=== PATIENT | male | born 1940 | race Caucasian/White ===

== ENCOUNTER 2016-08-03 09:55 | Outpatient (CLI) | payer MEDICARE, OTHER | END 2016-08-03 09:56 | disposition home or self-care (01) | DX: E78.5 Hyperlipidemia, unspecified (principal); E03.9 Hypothyroidism, unspecified; I10 Essential (primary) hypertension ==

== ENCOUNTER 2016-11-01 14:46 | Outpatient (CLI) | payer MEDICARE, OTHER | END 2016-11-01 23:59 | disposition home or self-care (01) | DX: E03.9 Hypothyroidism, unspecified (principal) ==

== ENCOUNTER 2016-12-10 07:41 | Outpatient (CLI) | payer MEDICARE, OTHER ==
[2016-12-10 13:36] LABS: THYROID STIMULATING HORMONE 11.33 uIU/mL (0.34-5.60)
== END 2016-12-10 07:42 | disposition home or self-care (01) ==
LOC: LAB.WCP 07:41
PROVIDERS: ATTEND Family Medicine
DX: E03.9 Hypothyroidism, unspecified (principal)
CPT/HCPCS: 36415; 84439; 84443; 84481

== ENCOUNTER 2017-01-24 07:15 | Outpatient (CLI) | payer MEDICARE, OTHER ==
[2017-01-24 21:39] LABS: THYROID STIMULATING HORMONE 28.56 uIU/mL (0.34-5.60)
== END 2017-01-24 07:16 | disposition home or self-care (01) ==
LOC: LAB.WCP 07:15
PROVIDERS: ATTEND Family Medicine
DX: E03.9 Hypothyroidism, unspecified (principal)
CPT/HCPCS: 36415; 84439; 84443; 84481

== ENCOUNTER 2017-03-03 17:24 | Outpatient (CLI) | payer MEDICARE, OTHER ==
[2017-03-03 13:56] LABS: THYROID STIMULATING HORMONE 12.15 uIU/mL (0.34-5.60)
== END 2017-03-03 17:25 | disposition home or self-care (01) ==
LOC: LAB.WCP 17:24
PROVIDERS: ATTEND Family Medicine
DX: E03.9 Hypothyroidism, unspecified (principal)
CPT/HCPCS: 36415; 84439; 84443; 84481

== ENCOUNTER 2017-03-31 08:23 | Outpatient (CLI) | payer MEDICARE, OTHER ==
[2017-03-31 14:18] LABS: THYROID STIMULATING HORMONE 2.84 uIU/mL (0.34-5.60)
== END 2017-03-31 08:24 | disposition home or self-care (01) ==
LOC: LAB.WCP 08:23
PROVIDERS: ATTEND Family Medicine
DX: E03.9 Hypothyroidism, unspecified (principal)
CPT/HCPCS: 36415; 84439; 84443; 84481

== ENCOUNTER 2017-11-01 14:32 | Outpatient (CLI) | payer MEDICARE, OTHER ==
[2017-11-01 19:34] LABS: BASOPHILS % (AUTO) 0.5 %; EOSINOPHILS # (AUTO) 0.3 10^3/uL (0.0-0.7); EOSINOPHILS % (AUTO) 3.6 %; HGB - HEMOGLOBIN 14.1 g/dL (14.0-18.0); LYMPHOCYTES # (AUTO) 1.4 10^3/uL (1.5-3.5); LYMPHOCYTES % (AUTO) 16.4 %; MEAN CORPUSCULAR HEMOGLOBIN 32.8 pg (27.0-31.0); MEAN CORPUSCULAR HGB CONC 33.2 g/dL (32.0-36.0); MEAN CORPUSCULAR VOLUME 98.7 fL (80.0-94.0); MEAN PLATELET VOLUME 8.3 fL (7.4-11.4); MONOCYTES # (AUTO) 0.7 10^3/uL (0.0-1.0); MONOCYTES % (AUTO) 7.9 %; NEUTROPHILS # (AUTO) 6.3 10^3/uL (1.5-6.6); NEUTROPHILS % (AUTO) 71.6 %; PLT - PLATELET COUNT 214 10^3/uL (130-450); RED BLOOD COUNT 4.31 10^6/uL (4.70-6.10); RED CELL DISTRIBUTION WIDTH 13.5 % (12.0-15.0); WHITE BLOOD COUNT 8.8 x10^3/uL (4.8-10.8)
[2017-11-01 20:00] LABS: ALBUMIN 3.7 g/dL (3.2-5.5); ALBUMIN/GLOBULIN RATIO 0.9 (1.0-2.2); ALKALINE PHOSPHATASE 75 IU/L (42-121); ALT ALANINE AMINOTRANSFERASE 19 IU/L (10-60); AST ASPARTATE AMINOTRANSFERASE 28 IU/L (10-42); BILIRUBIN,TOTAL 0.9 mg/dL (0.2-1.0); BUN - BLOOD UREA NITROGEN 21 mg/dL (6-20); CALCIUM 8.6 mg/dL (8.5-10.3); CARBON DIOXIDE - CO2 29 mmol/L (21-32); CHLORIDE 102 mmol/L (101-111); CHOL/HDL RATIO 5.4 (<5.0); CHOLESTEROL 195 mg/dL; CREATININE 0.8 mg/dL (0.6-1.2); GFR - MDRD 93 (>89); GLUCOSE 121 mg/dL (70-100); HDL CHOLESTEROL 36 mg/dL; LDL CHOLESTEROL,CALCULATED 136 mg/dL; LDL/HDL RATIO 3.8 (<3.6); SODIUM 138 mmol/L (135-145); TOTAL PROTEIN 7.6 g/dL (6.7-8.2); VLDL CHOLESTEROL 23 mg/dL
== END 2017-11-01 14:33 ==
LOC: LAB.WCP 14:32
PROVIDERS: ATTEND Family Medicine
DX: E78.5 Hyperlipidemia, unspecified (principal); R73.9 Hyperglycemia, unspecified; E03.9 Hypothyroidism, unspecified; I10 Essential (primary) hypertension
CPT/HCPCS: 36415; 80053; 80061; 83721; 84443; 85025

== ENCOUNTER 2017-11-17 14:38 | Outpatient (CLI) | payer MEDICARE, OTHER | END 2017-11-17 14:39 | disposition home or self-care (01) | LOC: LAB.R 14:38 | PROVIDERS: ATTEND Family Medicine | DX: L98.8 Other specified disorders of the skin and subcutaneous tissue (principal) | CPT/HCPCS: 87070; 87205 ==

== ENCOUNTER 2018-02-10 09:27 | Outpatient (CLI) | payer MEDICARE, OTHER ==
[2018-02-10 12:35] LABS: BASOPHILS % (AUTO) 0.6 %; EOSINOPHILS # (AUTO) 0.3 10^3/uL (0.0-0.7); EOSINOPHILS % (AUTO) 4.3 %; HGB - HEMOGLOBIN 14.5 g/dL (14.0-18.0); LYMPHOCYTES # (AUTO) 1.2 10^3/uL (1.5-3.5); LYMPHOCYTES % (AUTO) 15.2 %; MEAN CORPUSCULAR HEMOGLOBIN 33.8 pg (27.0-31.0); MEAN CORPUSCULAR HGB CONC 33.8 g/dL (32.0-36.0); MEAN CORPUSCULAR VOLUME 99.9 fL (80.0-94.0); MEAN PLATELET VOLUME 8.6 fL (7.4-11.4); MONOCYTES # (AUTO) 0.7 10^3/uL (0.0-1.0); MONOCYTES % (AUTO) 8.9 %; NEUTROPHILS # (AUTO) 5.5 10^3/uL (1.5-6.6); PLT - PLATELET COUNT 211 10^3/uL (130-450); RED CELL DISTRIBUTION WIDTH 13.5 % (12.0-15.0); WHITE BLOOD COUNT 7.7 x10^3/uL (4.8-10.8)
[2018-02-10 12:58] LABS: HB2 TOTAL 15.2 g/dL; HEMOGLOBIN A1C 0.62 g/dL; HEMOGLOBIN A1C % 5.9 % (4.6-6.2)
[2018-02-10 12:59] LABS: ALBUMIN 3.5 g/dL (3.2-5.5); ALBUMIN/GLOBULIN RATIO 0.8 (1.0-2.2); ALKALINE PHOSPHATASE 82 IU/L (42-121); ALT ALANINE AMINOTRANSFERASE 18 IU/L (10-60); AST ASPARTATE AMINOTRANSFERASE 27 IU/L (10-42); BILIRUBIN,TOTAL 0.7 mg/dL (0.2-1.0); BUN - BLOOD UREA NITROGEN 22 mg/dL (6-20); CALCIUM 8.8 mg/dL (8.5-10.3); CARBON DIOXIDE - CO2 27 mmol/L (21-32); CHLORIDE 102 mmol/L (101-111); CHOL/HDL RATIO 4.5 (<5.0); CHOLESTEROL 148 mg/dL; CREATININE 0.8 mg/dL (0.6-1.2); GFR - MDRD 93 (>89); GLUCOSE 103 mg/dL (70-100); HDL CHOLESTEROL 33 mg/dL; LDL CHOLESTEROL,CALCULATED 95 mg/dL; LDL/HDL RATIO 2.9 (<3.6); SODIUM 137 mmol/L (135-145); TOTAL PROTEIN 7.7 g/dL (6.7-8.2); VLDL CHOLESTEROL 20 mg/dL
== END 2018-02-10 09:28 | disposition home or self-care (01) ==
LOC: LAB.WCP 09:27
PROVIDERS: ATTEND Family Medicine
DX: E78.5 Hyperlipidemia, unspecified (principal); R73.9 Hyperglycemia, unspecified; E03.9 Hypothyroidism, unspecified; I10 Essential (primary) hypertension
CPT/HCPCS: 36415; 80053; 80061; 83036; 83721; 84443; 85025

== ENCOUNTER 2018-06-06 08:00 | Outpatient (CLI) | payer MEDICARE, OTHER ==
[2018-06-06 19:26] LABS: BASOPHILS # (AUTO) 0.1 10^3/uL (0.0-0.1); BASOPHILS % (AUTO) 0.8 %; EOSINOPHILS # (AUTO) 0.3 10^3/uL (0.0-0.7); HGB - HEMOGLOBIN 14.6 g/dL (14.0-18.0); LYMPHOCYTES % (AUTO) 14.5 %; MEAN CORPUSCULAR HEMOGLOBIN 33.9 pg (27.0-31.0); MEAN CORPUSCULAR HGB CONC 32.8 g/dL (32.0-36.0); MEAN CORPUSCULAR VOLUME 103.2 fL (80.0-94.0); MEAN PLATELET VOLUME 8.7 fL (7.4-11.4); MONOCYTES # (AUTO) 0.6 10^3/uL (0.0-1.0); MONOCYTES % (AUTO) 8.4 %; NEUTROPHILS # (AUTO) 4.8 10^3/uL (1.5-6.6); NEUTROPHILS % (AUTO) 72.3 %; PLT - PLATELET COUNT 218 10^3/uL (130-450); RED BLOOD COUNT 4.31 10^6/uL (4.70-6.10); RED CELL DISTRIBUTION WIDTH 13.9 % (12.0-15.0); WHITE BLOOD COUNT 6.6 x10^3/uL (4.8-10.8)
[2018-06-06 19:43] LABS: ALBUMIN 3.8 g/dL (3.2-5.5); ALBUMIN/GLOBULIN RATIO 0.9 (1.0-2.2); ALKALINE PHOSPHATASE 83 IU/L (42-121); ALT ALANINE AMINOTRANSFERASE 18 IU/L (10-60); AST ASPARTATE AMINOTRANSFERASE 26 IU/L (10-42); BILIRUBIN,TOTAL 0.9 mg/dL (0.2-1.0); BUN - BLOOD UREA NITROGEN 26 mg/dL (6-20); CALCIUM 8.5 mg/dL (8.5-10.3); CARBON DIOXIDE - CO2 31 mmol/L (21-32); CHLORIDE 101 mmol/L (101-111); CHOL/HDL RATIO 4.2 (<5.0); CHOLESTEROL 154 mg/dL; CREATININE 0.8 mg/dL (0.6-1.2); GFR - MDRD 93 (>89); GLUCOSE 92 mg/dL (70-100); HDL CHOLESTEROL 37 mg/dL; LDL CHOLESTEROL,CALCULATED 91 mg/dL; LDL/HDL RATIO 2.5 (<3.6); SODIUM 139 mmol/L (135-145); TOTAL PROTEIN 7.9 g/dL (6.7-8.2); VLDL CHOLESTEROL 26 mg/dL
[2018-06-06 20:13] LABS: HB2 TOTAL 15.7 g/dL; HEMOGLOBIN A1C 0.63 g/dL; HEMOGLOBIN A1C % 5.8 % (4.6-6.2)
== END 2018-06-06 23:59 | disposition home or self-care (01) ==
LOC: LAB.WCP 08:00
PROVIDERS: ATTEND Family Medicine
DX: I10 Essential (primary) hypertension (principal); E78.5 Hyperlipidemia, unspecified; R73.9 Hyperglycemia, unspecified; E03.9 Hypothyroidism, unspecified
CPT/HCPCS: 36415; 80053; 80061; 83036; 83721; 84443; 85025

== ENCOUNTER 2018-07-05 10:49 | Outpatient (CLI) | payer MEDICARE, OTHER | END 2018-07-05 23:59 | disposition home or self-care (01) | LOC: LAB.WCP 10:49 | PROVIDERS: ATTEND Family Medicine | DX: E03.9 Hypothyroidism, unspecified (principal) | CPT/HCPCS: 36415; 84443 ==

== ENCOUNTER 2018-12-22 10:15 | Outpatient (CLI) | payer MEDICARE, OTHER | END 2018-12-22 10:16 | disposition critical access hospital (66) | LOC: EMS 10:15 | PROVIDERS: ATTEND Surgery | DX: R53.1 Weakness (principal); R41.82 Altered mental status, unspecified | CPT/HCPCS: A0425; A0429 ==

== ENCOUNTER 2018-12-22 10:38 | Inpatient (IN) | payer MEDICARE, OTHER ==
[2018-12-22 11:23] LABS: BASOPHILS # (AUTO) 0.2 10^3/uL (0.0-0.1); BASOPHILS % (AUTO) 1.3 %; HGB - HEMOGLOBIN 15.2 g/dL (14.0-18.0); LYMPHOCYTES # (AUTO) 0.5 10^3/uL (1.5-3.5); LYMPHOCYTES % (AUTO) 2.7 %; MEAN CORPUSCULAR HEMOGLOBIN 34.2 pg (27.0-31.0); MEAN CORPUSCULAR HGB CONC 33.3 g/dL (32.0-36.0); MEAN CORPUSCULAR VOLUME 102.6 fL (80.0-94.0); MEAN PLATELET VOLUME 8.4 fL (7.4-11.4); MONOCYTES # (AUTO) 0.5 10^3/uL (0.0-1.0); MONOCYTES % (AUTO) 2.8 %; NEUTROPHILS # (AUTO) 16.6 10^3/uL (1.5-6.6); NEUTROPHILS % (AUTO) 93.2 %; PLT - PLATELET COUNT 157 10^3/uL (130-450); RED BLOOD COUNT 4.43 10^6/uL (4.70-6.10); RED CELL DISTRIBUTION WIDTH 14.3 % (12.0-15.0); WHITE BLOOD COUNT 17.8 x10^3/uL (4.8-10.8)
[2018-12-22 11:33] LABS: ALBUMIN 4.1 g/dL (3.2-5.5); ALBUMIN/GLOBULIN RATIO 0.9 (1.0-2.2); BILIRUBIN,TOTAL 1.6 mg/dL (0.2-1.0); CALCIUM 8.9 mg/dL (8.5-10.3); CREATININE 1.5 mg/dL (0.6-1.2); TOTAL PROTEIN 8.6 g/dL (6.7-8.2)
--- NOTE | 2018-12-22 13:19 | ED Physician Documentation ---
History of Present Illness - Stated complaint Stated Complaint: WEAKNESS - Chief complaint Chief Complaint: General - History obtained from History obtained from: Patient, Family () - History of Present Illness Timing: Yesterday - Additonal information Additional information: The patient is an 78-year-old male with history of sleep apnea, COPD, chronic pedal edema, hypothyroidism, and hypertension, who presents via ambulance with new onset weakness. He has been sitting up in the recliner to sleep at night, and this morning was too weak to get out of his recliner. His states that 2 days ago he was able to drive his car. Yesterday he was able to stand and walk, but was not able to drive. This morning he was unable to stand up from his recliner. His provides most of the history because the patient seems to have either difficulty or no willingness to speak. He becomes grumpy with me when I ask questions, but did eventually demonstrate ability to verbalize his thoughts. He denies chest pain, abdominal pain, nausea or vomiting. He denies dysuria, but urinated on himself this morning when unable to stand up from the recliner. Review of Systems Constitutional: reports: Fatigue. denies: Fever Eyes: denies: Decreased vision Ears: denies: Tinnitus/ringing Nose: denies: Congestion Throat: denies: Sore throat Cardiac: denies: Chest pain / pressure Respiratory: reports: Dyspnea. denies: Cough GI: denies: Abdominal Pain, Nausea, Vomiting : reports: Incontinent. denies: Dysuria Skin: reports: Rash (from scratching on lower legs) Musculoskeletal: reports: Extremity swelling (chronic) Neurologic: reports: Generalized weakness. denies: Focal weakness, Numbness, Headache PD PAST MEDICAL HISTORY - Past Medical History Past Medical History: Yes Cardiovascular: Hypertension, Atrial fibrillation Respiratory: Asthma Endocrine/Autoimmune: HyPOthyroidism GI: Ulcers : None HEENT: None Psych: Depression, Claustrophobia Musculoskeletal: Osteoarthritis, Fatigue Derm: None - Past Surgical History Past Surgical History: Yes HEENT: Cataracts - Present Medications Home Medications: Ambulatory Orders Medication Instructions Recorded Confirmed Albuterol [Ventolin Hfa] 2 puffs INH Q4H PRN 03/29/13 02/29/16 Hydrochlorothiazide 25 mg PO DAILY 03/29/13 02/29/16 Levothyroxine [Synthroid] 200 mcg PO QDAC 03/29/13 02/29/16 Lisinopril 10 mg PO DAILY 03/29/13 02/29/16 Sertraline [Zoloft] 50 mg PO DAILY 03/30/13 02/29/16 Fluticasone/Salmeterol [Advair 1 puffs INH BID 07/21/15 02/29/16 250-50 Diskus] Fexofenadine HCl 180 mg ORAL DAILY PRN 09/10/15 02/29/16 Furosemide 20 mg ORAL DAILY 09/10/15 02/29/16 Montelukast [Singulair] 1 tab ORAL DAILY 09/10/15 02/29/16 Levofloxacin [Levaquin] 750 mg PO DAILY #3 tablet 03/01/16 cephALEXin [Cephalexin] 500 mg PO QID #28 tablet 12/22/18 - Allergies Allergies/Adverse Reactions: Allergies Allergy/AdvReac Type Severity Reaction Status Date / Time amoxicillin [Amoxicillin] Allergy Unknown Rash Verified 03/30/13 09:06 - Social History Does the pt smoke?: No Smoking Status: Never smoker Does the pt drink ETOH?: No Does the pt have substance abuse?: No - Immunizations Immunizations are current?: Yes - POLST Patient has POLST: No PD ED PE NORMAL - Vitals Vital signs reviewed: Yes (normal) - General General: Other (Alert elderly male who is confused with regard to date and year.) - HEENT HEENT: Atraumatic, PERRL, EOMI, Pharynx benign - Neck Neck: Supple, no meningeal sign, No adenopathy - Cardiac Cardiac: RRR - Respiratory Respiratory: Other (Diffuse expiratory wheezing.) - Abdomen Abdomen: Soft, Non tender, Other (Rotund abdomen.) - Back Back: No CVA TTP - Derm Derm: No rash (Excoriation of lower legs bilaterally.) - Extremities Extremities: No calf tenderness / cord, Other (2+ pedal edema bilaterally with bilateral skin excoriations from scratching. The left lower leg is erythematous and warm to touch, with mild tenderness to palpation.) - Neuro Neuro: No sensory deficit, Other (Alert but disoriented. Cantankerous and minimizes communication, but does demonstrate ability to express himself verbally. There is generalized weakness but more specific weakness of the left lower extremity, with inability to hold his left leg after I left it from the bed.) Results - Vitals Vitals: Vital Signs - 24 hr 12/22/18 12/22/18 12/22/18 10:46 11:27 13:00 Temperature 37.0 C Heart Rate 88 86 91 Respiratory 20 22 22 Rate Blood Pressure 124/72 123/64 112/79 O2 Saturation 96 93 96 12/22/18 12/22/18 12/22/18 14:50 15:00 17:00 Temperature Heart Rate 87 85 78 Respiratory 18 20 20 Rate Blood Pressure 134/20 H 134/70 H O2 Saturation 98 98 12/22/18 12/22/18 18:00 20:18 Temperature Heart Rate 86 90 Respiratory 22 23 Rate Blood Pressure 104/69 116/77 O2 Saturation 95 93 Oxygen O2 Source [With Activity] Nasal cannula O2 Source Room air - EKG (time done) 10:46 Rate: Rate (enter#) (99) Rhythm: NSR, LAE, Other (Multiform VPC's.) Intervals: LBBB Compare to prior EKG: Changed from prior EKG (No longer tachycardic.) Computer interpretation: Agree with computer - Labs Labs: Laboratory Tests 12/22/18 12/22/18 12/22/18 11:08 11:08 11:19 WBC 17.8 H RBC 4.43 L Hgb 15.2 Hct 45.5 MCV 102.6 H MCH 34.2 H MCHC 33.3 RDW 14.3 Plt Count 157 MPV 8.4 Neut # (Auto) 16.6 H Lymph # (Auto) 0.5 L [place] # (Auto) 0.5 Eos # (Auto) 0.0 Baso # (Auto) 0.2 H Absolute Nucleated RBC 0.00 Nucleated RBC % 0.0 Sodium 136 Potassium 4.0 Chloride 99 L Carbon Dioxide 26 Anion Gap 11.0 BUN 24 H Creatinine 1.5 H Estimated GFR (MDRD) 45 L Glucose 112 H Lactic Acid 2.2 Calcium 8.9 Total Bilirubin 1.6 H AST 51 H ALT 21 Alkaline Phosphatase 56 Troponin I B-Natriuretic Peptide Total Protein 8.6 H Albumin 4.1 Globulin 4.5 H Albumin/Globulin Ratio 0.9 L Lipase 32 Urine Color Urine Clarity Urine pH Ur Specific [place] Urine Protein Urine Glucose (UA) Urine Ketones Urine Occult Blood Urine Nitrite Urine Bilirubin Urine Urobilinogen Ur Leukocyte Esterase Urine RBC Urine WBC Ur Squamous Epith Cells Urine Bacteria Urine Mucus Ur Microscopic Review Urine Culture Comments 12/22/18 12/22/18 12/22/18 13:06 14:12 14:23 WBC RBC Hgb Hct MCV MCH MCHC RDW Plt Count MPV Neut # (Auto) Lymph # (Auto) [place] # (Auto) Eos # (Auto) Baso # (Auto) Absolute Nucleated RBC Nucleated RBC % Sodium Potassium Chloride Carbon Dioxide Anion Gap BUN Creatinine Estimated GFR (MDRD) Glucose Lactic Acid Calcium Total Bilirubin AST ALT Alkaline Phosphatase Troponin I < 0.04 B-Natriuretic Peptide 471 H Total Protein Albumin Globulin Albumin/Globulin Ratio Lipase Urine Color DARK YELLOW Urine Clarity HAZY Urine pH 5.5 Ur Specific [place] >=1.030 H Urine Protein 100 H Urine Glucose (UA) NEGATIVE Urine Ketones NEGATIVE Urine Occult Blood MODERATE H Urine Nitrite NEGATIVE Urine Bilirubin NEGATIVE Urine Urobilinogen 1 (NORMAL) Ur Leukocyte Esterase NEGATIVE Urine RBC 0-5 Urine WBC 0-3 Ur Squamous Epith Cells MOD Squamous H Urine Bacteria Moderate H Urine Mucus Marked Strands Ur Microscopic Review INDICATED Urine Culture Comments NOT INDICATED - Rads (name of study) Portable CXR Radiology: Prelim report reviewed, EMP read contemporaneously, See rad report (Hypoventilatory chest with no acute cardiopulmonary abnormality. No plain radiographic evidence of congestive heart failure.) Head CT Radiology: Prelim report reviewed, EMP read contemporaneously, See rad report PD MEDICAL DECISION MAKING - ED course Complexity details: reviewed old records, reviewed results, re-evaluated patient, considered differential, d/w patient, d/w family, d/w portrait consultant ED course: The patient's presentation is significant for cellulitis of the left lower leg. Sepsis is considered, with his apparent decrease in mental status, elevated lactate of 2.2, and elevated white blood cell count of 17.8. He is generally weak and was not able to stand from his recliner this morning. On examination he also had wheezing at the bases of his lungs bilaterally. No rales or rhonchi were appreciated. Chest x-ray revealed no acute infiltrate or evidence of vascular congestion. Blood cultures x2 were drawn and are pending. Treatment in the emergency department included administration of ceftriaxone 1 g IV after blood cultures were drawn. DuoNeb nebulizer was administered and improved his air movement. Normal saline 500 mL was administered IV. I discussed his condition with Dr. Page who accepts him for further evaluation and treatment. When the hospitalist arrived to examine the patient for admission he refused hospitalization. Despite prolonged efforts to convince him to stay for further treatment the patient continued to refuse hospitalization. His became disgusted with him and left the emergency department. The patient continued to refuse hospitalization, and signed AGAINST MEDICAL ADVICE form indicating that he understands the risks of leaving without further treatment. I advised him that if at any point he changes his mind he is welcome to return. He is being discharged with prescription for cephalexin after having been given a gram of IV ceftriaxone in the emergency department. After the patient signed out AGAINST MEDICAL ADVICE he demonstrated inability to ambulate. His mental capacity is clearly impaired, most likely caused by the underlying infection, making his ability to leave AGAINST MEDICAL ADVICE in advisable. I have asked medical attendant and laborer hide house for assistance. From a medical standpoint the patient needs to be admitted for further treatment, and is not functionally able to leave the hospital at this time. Departure - Departure Disposition: [facility] DC/Xfer Clinical Impression: Cellulitis of left leg without foot, Sleep apnea in adult, Altered mental status COPD (chronic obstructive pulmonary disease) Qualifiers: COPD type: unspecified COPD Qualified Code(s): J44.9 - Chronic obstructive pulmonary disease, unspecified Condition: Stable Instructions: ED Infec Skin Cellulitis Discharge Date/Time: 12/22/18 21:15
[2018-12-22 13:28] LABS: BILIRUBIN,URINE NEGATIVE (NEGATIVE); GLUCOSE, URINE (UA) NEGATIVE (NEGATIVE); KETONES,URINE (UA) NEGATIVE (NEGATIVE); LEUKOCYTE ESTERASE, URINE NEGATIVE (NEGATIVE); NITRITE,URINE NEGATIVE (NEGATIVE); OCCULT BLOOD,URINE MODERATE (NEGATIVE); PH,URINE 5.5 PH (5.0-7.5); PROTEIN,URINE 100 mg/dL (NEGATIVE); UROBILINOGEN,URINE 1 (NORMAL) E.U./dL (NORMAL)
--- NOTE | 2018-12-22 14:02 | CT Report ---
Reason: left sided weakness Procedure Date: 12/22/2018 Accession Number: [id number] / [id number] Procedure: CT - HEAD WO CPT Code: FULL RESULT: EXAM: CT HEAD EXAM DATE: 12/22/2018 01:49 PM. CLINICAL HISTORY: Left sided weakness. COMPARISON: None. TECHNIQUE: Multiaxial CT images were obtained from the foramen magnum to the vertex. Reformats: Sagittal and coronal. IV contrast: None. In accordance with CT protocol optimization, one or more of the following dose reduction techniques were utilized for this exam: automated exposure control, adjustment of mA and/or KV based on patient size, or use of iterative reconstructive technique. FINDINGS: Parenchyma: No acute intracranial process. No mass-effect, edema, hemorrhage or midline shift. There is an old approximately 10 mm diameter infarct in the left insular cortex no other focal abnormality. Extraaxial Spaces: Normal for age. No subdural or epidural collections identified. Ventricles: Normal in size and position. Sinuses and Orbits: Imaged paranasal sinuses, orbits, and mastoids show no significant abnormality. Bones: No evidence of fracture or calvarial defect. Other: None. IMPRESSION: 1. 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 2. Otherwise normal examination for patient's age. RADIA
--- NOTE | 2018-12-22 14:03 | XRAY Report ---
Reason: dyspnea Procedure Date: 12/22/2018 Accession Number: [id number] / [id number] Procedure: XR - Chest 1 View X-Ray CPT Code: 60292 FULL RESULT: EXAM: CHEST RADIOGRAPHY EXAM DATE: 12/22/2018 01:52 PM. CLINICAL HISTORY: Dyspnea. COMPARISON: CHEST 2 VIEW PA/LAT 02/27/2016 8:33 PM. TECHNIQUE: 1 view. FINDINGS: Lungs/Pleura: Allowing for poor inspiratory effort there is no significant abnormality. Normal pulmonary vasculature. No significant change. Mediastinum: Borderline cardiac enlargement accentuated by poor inspiratory effort. No mass lesion. Other: None. IMPRESSION: Hypoventilatory chest with no acute cardiopulmonary abnormality. No plain radiographic evidence of congestive heart failure. RADIA
[2018-12-22 14:08] LABS: CLARITY,URINE HAZY (CLEAR)
[2018-12-22 14:19] LABS: BACTERIA,URINE Moderate /HPF (None Seen); MUCUS,URINE Marked Strands; RBC,URINE 0-5 /HPF (0-5); SQUAMOUS EPITHELIAL CELL,UR MOD Squamous (<= Few)
[2018-12-22] MEDS ORDERED: IPRATROPIUM/ALBUTEROL 3 ML NEB INH STA (14:21)
[2018-12-22] MEDS ORDERED: SODIUM CHLORIDE 0.9% 1,000 ML IV ONE (14:22)
[2018-12-22] MEDS ORDERED: SODIUM CHLORIDE 0.9% 500 ML IV ONE (14:26)
[2018-12-22] MEDS ORDERED: cefTRIAXone 1 GM in SODIUM CHLORIDE 0.9% MINIBAG 100 ML IV STA (15:59)
--- NOTE | 2018-12-22 18:08 | PROVIDER PROGRESS NOTE ---
Hospitalist Cross-cover Note - Cross-Cover Note Cross-Cover Note: I went to ER to visit Mr. Lofton twice, and every time I was with Dr. Savage and pt's and nurses together. Every time pt clearly stated he refused to stay in the hospital for treatment. I am willing to admit pt but I can not admit pt at this time. I respect it is pt's right to make this decision. Pt is alert and pt clearly make his decision now.
[2018-12-22] MEDS ORDERED: ZIPRASIDONE 20 MG VIAL IM STA (19:36)
[2018-12-22] MEDS ORDERED: ACETAMINOPHEN 325 MG TABLET PO PRN (20:27)
--- NOTE | 2018-12-22 21:08 | HISTORY & PHYSICAL EXAMINATION ---
Chief Complaint - Chief Complaint Chief Complaint: weakness History of Present Illness - Admitted From Admitted From:: [facility] ED - History Obtained From Records Reviewed: yes History obtained from: chart Exam Limitations: patient very uncooperative. possibly encephalopathic - History of Present Illness HPI Comment/Other: Patient seen on 12/22/18 at 2015pm The account below is obtained from the HPI of the ED H&P because the patient is not cooperative and refuses to provide any history. He can tell me his name, his date of and his current location. However, he would not tell me why and how he presented to the ED. He keep insisting that he wants to go. However he is unstable on his feet. His is not at bedside because she got very frustrated with his behavior and opposition to care, so she left. Upon presenting to bedside, he was standing but appeared unsteady on his legs. There were two staff members trying to guide him to sit in bed. I explained our concern about him having an infection and possibly getting septic if he was not treated. He keeps repeating that he does not want to stay but would not give a reason why. I informed him that I was concern that he was not thinking at a rational baseline and that we will have to restraint him on that account if he continued to resist care, thus giving him the opportunity to give his perspective. He did not. He keep repeating his mantra about not wanting to stay. I deemed him unable to make appropriate decisions for himself at the moment and admitted him. "The patient is an 78-year-old male with history of sleep apnea, COPD, chronic pedal edema, hypothyroidism, and hypertension, who presents via ambulance with new onset weakness. He has been sitting up in the recliner to sleep at night, and this morning was too weak to get out of his recliner. His states that 2 days ago he was able to drive his car. Yesterday he was able to stand and walk, but was not able to drive. This morning he was unable to stand up from his recliner. His provides most of the history because the patient seems to have either difficulty or no willingness to speak. He becomes grumpy with me when I ask questions, but did eventually demonstrate ability to verbalize his thoughts. He denies chest pain, abdominal pain, nausea or vomiting. He denies dysuria, but urinated on himself this morning when unable to stand up from the recliner." History - Past Medical History Cardiovascular: reports: Hypertension, Deep vein thrombosis, Atrial fibrillation Respiratory: reports: Asthma Endocrine/Autoimmune: reports: HyPOthyroidism GI: reports: Ulcers : reports: None HEENT: reports: None Psych: reports: Depression, Claustrophobia Musculoskeletal: reports: Osteoarthritis, Fatigue Derm: reports: None MRSA Hx?: No - Past Surgical History HEENT: reports: Cataracts - Family & Social History Family History: Brother: CAD, Other family: Diabetes, Type 2 (maternal grandmother: diabetes ) Living arrangement: At home Social History Notes: Patient lives with of 23 years.. Prior to that he was twice .. Had a son who at 2 or 3 yrs of age. Has 2 step chilldren. He was born in [place] but grew up in [facility] and has live here almost his whole life. 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 He quit smoking when he was in his 40's. He smoked about 1/4 pack a day for 10 years. He denies any alcohol use. He denies any illicit drug use - POLST Patient has POLST: No POLST Status: Full Code (until verified with spouse) Meds/Allgy - Home Medications Home Medications: Ambulatory Orders Medication Instructions Recorded Confirmed Albuterol [Ventolin Hfa] 2 puffs INH Q4H PRN 03/29/13 02/29/16 Hydrochlorothiazide 25 mg PO DAILY 03/29/13 02/29/16 Levothyroxine [Synthroid] 200 mcg PO QDAC 03/29/13 02/29/16 Lisinopril 10 mg PO DAILY 03/29/13 02/29/16 Sertraline [Zoloft] 50 mg PO DAILY 03/30/13 02/29/16 Fluticasone/Salmeterol [Advair 1 puffs INH BID 07/21/15 02/29/16 250-50 Diskus] Fexofenadine HCl 180 mg ORAL DAILY PRN 09/10/15 02/29/16 Furosemide 20 mg ORAL DAILY 09/10/15 02/29/16 Montelukast [Singulair] 1 tab ORAL DAILY 09/10/15 02/29/16 Levofloxacin [Levaquin] 750 mg PO DAILY #3 tablet 03/01/16 cephALEXin [Cephalexin] 500 mg PO QID #28 tablet 12/22/18 - Allergies Allergies/Adverse Reactions: Allergies Allergy/AdvReac Type Severity Reaction Status Date / Time amoxicillin [Amoxicillin] Allergy Unknown Rash Verified 03/30/13 09:06 Review of Systems - Other Findings Other Findings: Limited ROS because the patient is currently encephalopathic and very uncoope rative Exam - Vital Signs Vital Signs: Vital Signs x48h Pulse Resp BP Pulse Ox 12/22/18 20:48 97 20 122/66 98 12/22/18 20:18 90 23 116/77 93 12/22/18 18:00 86 22 104/69 95 12/22/18 17:00 78 20 134/70 H 98 12/22/18 15:00 85 20 134/20 H 98 12/22/18 14:50 87 18 12/22/18 13:00 91 22 112/79 96 - Physical Exam General Appearance: positive: No acute distress, Other (Grumpy/ Agitated and COnfused) Eyes Bilateral: positive: Normal inspection, PERRL, EOMI ENT: positive: ENT inspection nml, No signs of dehydration Neck: positive: Nml inspection, No JVD, Trachea midline Respiratory: positive: Chest non-tender, No respiratory distress, Breath sounds nml. negative: Wheezes, Rales, Rhonchi Cardiovascular: positive: No murmur, Tachycardia Abdomen: positive: Non-tender, Nml bowel sounds, No distention Back: positive: Nml inspection Skin: positive: No rash, Other (escuriations, scabs and wounds in bilateral lower extremities from mid helms distally) Extremities: positive: Pedal edema Neurologic/Psychiatric: negative: Oriented x3 (Oriented to self and place but n ot reason) Sepsis Event Note (H) - Evaluation Current Stage of Sepsis: Sepsis Possible source of Sepsis: positive: Genitourinary, Skin/soft tissue - Sepsis Criteria Sepsis Criteria: Recorded Temperature greater than 38.3C or Less than 36C, Recorded Heart Rate greater than 90 bpm, Recorded Respiratory Rate greater than 20, WBC count greater than 12,000 or less than 4000, [employer] ARCHITECT: altered consciousness (unrelated to primary neuro pathology), Metabolic: lactate > 2 mmol/L Conclusion/Plan - Problem List (1) Sepsis Conclusion/Plan: likely 2/2 UTI and lower ext cellulitis Blood culture drawn. Patient given rocephin. Will add vancomycin Gentle IV hydration. Tylenol for fever. (2) Hypothyroidism Conclusion/Plan: On synthroid (3) HTN (hypertension) Conclusion/Plan: On HCTZ and lisinopril (4) Asthma Conclusion/Plan: Not in exacerbation Continue home regimen. Breathing treatment prn (5) Depression Conclusion/Plan: On zoloft - Lab Results Lab results reviewed: Yes Fish Bones: 12/22/18 11:08 12/22/18 11:08 - Diagnostic Imaging Results Diagnostic Imaging Results: positive: Final report reviewed Core Measures - Anticipated LOS I expect patient to be DC'd or transferred within 96 hours.: Yes - DVT/VTE - Prophylaxis VTE/DVT Device ordered at admit?: Yes VTE/DVT Prophylaxis med ordered at admit?: Yes
[2018-12-22] MEDS: SODIUM CHLORIDE 0.9% 1,000 ML IV SCH (21:40)
[2018-12-22] MEDS: HEPARIN 5,000 UNIT/ML VIAL SUBQ SCH (21:41)
[2018-12-22] MEDS ORDERED: VANCOMYCIN PER PHARMACY 100 GM in SODIUM CHLORIDE 0.9% 250 ML IV SCH (22:00)
[2018-12-22] MEDS ORDERED: VANCOMYCIN 1 GM VIAL ONE (22:44)
[2018-12-22] MEDS ORDERED: VANCOMYCIN INJ 3 GM in SODIUM CHLORIDE 0.9% 500 ML IV ONE (23:00)
[2018-12-23] MEDS: SODIUM CHLORIDE FLUSH 0.9% 10 ML SYRINGE IVP SCH ×3 (00:34→16:49)
[2018-12-23] MEDS: PANTOPRAZOLE 40 MG TABLET PO SCH (06:18)
[2018-12-23] MEDS: SODIUM CHLORIDE 0.9% 1,000 ML IV SCH (06:18)
[2018-12-23 06:52] LABS: BASOPHILS % (AUTO) 0.1 %; LYMPHOCYTES # (AUTO) 0.7 10^3/uL (1.5-3.5); LYMPHOCYTES % (AUTO) 5.3 %; MEAN CORPUSCULAR HEMOGLOBIN 34.6 pg (27.0-31.0); MEAN CORPUSCULAR HGB CONC 33.2 g/dL (32.0-36.0); MEAN CORPUSCULAR VOLUME 104.1 fL (80.0-94.0); MEAN PLATELET VOLUME 8.5 fL (7.4-11.4); MONOCYTES # (AUTO) 0.9 10^3/uL (0.0-1.0); MONOCYTES % (AUTO) 6.3 %; NEUTROPHILS # (AUTO) 12.1 10^3/uL (1.5-6.6); NEUTROPHILS % (AUTO) 88.3 %; PLT - PLATELET COUNT 130 10^3/uL (130-450); RED BLOOD COUNT 3.76 10^6/uL (4.70-6.10); RED CELL DISTRIBUTION WIDTH 14.5 % (12.0-15.0); WHITE BLOOD COUNT 13.7 x10^3/uL (4.8-10.8)
[2018-12-23 07:02] LABS: CALCIUM 7.6 mg/dL (8.5-10.3); CREATININE 1.5 mg/dL (0.6-1.2)
[2018-12-23] MEDS: POLYETHYLENE GLYCOL 3350 17 GM PACKET PO SCH (08:29)
[2018-12-23] MEDS ORDERED: POTASSIUM CHLORIDE 20 MEQ TABLET PO ONE (08:30)
[2018-12-23] MEDS: cefTRIAXone 1 GM in SODIUM CHLORIDE 0.9% MINIBAG 100 ML IV SCH (08:37)
[2018-12-23] MEDS: HEPARIN 5,000 UNIT/ML VIAL SUBQ SCH ×2 (08:37→20:10)
[2018-12-23] MEDS ORDERED: SERTRALINE 50 MG TABLET PO SCH (09:00)
--- NOTE | 2018-12-23 09:18 | PROVIDER PROGRESS NOTE ---
Subjective - Subjective Pt reports feeling: Improved Subjective: pt report he feel improved. pt express to me "you guys did a great job to me." Now he want to continue to be treated in the hospital. he denies fever, chill, chest pain. Current Medications - Current Medications Current Medications: Active Medications Acetaminophen (Tylenol) 650 mg PO Q4HR PRN PRN Reason: Pain 1 to 4 Albuterol () 2.5 mg INH RTQ4H PRN PRN Reason: Wheezing Budesonide (Pulmicort) 0.5 mg INH RTBID [facility] Last Admin: 12/23/18 09:53 Dose: 0.5 mg Formoterol Fumarate (Perforomist) 20 mcg INH RTBID [facility] Last Admin: 12/23/18 09:53 Dose: 20 mcg Heparin Sodium (Porcine) () 5,000 unit SUBQ BID [facility] Last Admin: 12/23/18 08:37 Dose: 5,000 unit Sodium Chloride (Normal Saline 0.9%) 1,000 mls @ 100 mls/hr IV .Q10H [facility] Stop: 12/23/18 16:59 Last Admin: 12/23/18 06:18 Dose: 100 mls/hr Ceftriaxone Sodium 1 gm/ (Sodium Chloride) 100 mls @ 200 mls/hr IV DAILY [facility] Last Infusion: 12/23/18 09:07 Dose: Infused Vancomycin HCl 1 gm/Vancomycin HCl 500 mg/ Sodium Chloride 500 mls @ 250 mls/hr IV Q24H [facility] Levothyroxine Sodium (Synthroid) 200 mcg PO QDAC [facility] Montelukast Sodium (Singulair) 10 mg PO QPM [facility] Pantoprazole Sodium (Protonix) 40 mg PO QDAC [facility] Last Admin: 12/23/18 06:18 Dose: 40 mg Polyethylene Glycol (Miralax) 17 gm PO DAILY [facility] Last Admin: 12/23/18 08:29 Dose: 17 gm Sertraline HCl (Zoloft) 50 mg PO DAILY [facility] Last Admin: 12/23/18 10:29 Dose: 50 mg Sodium Chloride (Normal Saline Flush 0.9%) 10 ml IVP PRN PRN PRN Reason: NEEDED PER PROVIDER ORDERS Sodium Chloride (Normal Saline Flush 0.9%) 10 ml IVP 0100,0900,1700 [facility] Last Admin: 12/23/18 08:37 Dose: Not Given Albuterol [Ventolin Hfa] 2 puffs INH Q4H PRN 03/29/13 Fluticasone/Salmeterol [Advair 250-50 Diskus] 1 puffs INH BID 07/21/15 Montelukast [Singulair] 10 mg PO DAILY 09/10/15 Atorvastatin [Lipitor] 10 mg PO QPM 12/23/18 Levothyroxine Sodium [Synthroid] 300 mcg PO QDAC 12/23/18 Lisinopril [Zestril] 10 mg PO DAILY 12/23/18 Sertraline HCl [Zoloft] 100 mg PO DAILY 12/23/18 hydroCHLOROthiazide [Hydrodiuril] 25 mg PO DAILY 12/23/18 Objective - Vital Signs/Intake & Output Reviewed Vital Signs: Yes Vital Signs: Vital Signs x48h Temp Pulse Resp BP Pulse Ox 12/23/18 08:05 36.3 C L 77 18 116/63 100 12/23/18 04:20 36.8 C 73 16 104/53 L Intake & Output: Intake & Output 12/20/18 12/21/18 12/22/18 12/23/18 23:59 23:59 23:59 23:59 Intake Total 1600 1463.333 Output Total 200 Balance 1600 1263.333 - Objective General Appearance: positive: No acute distress, Alert. negative: Lethargic Eyes Bilateral: positive: Normal inspection, PERRL, No lid inflammation, Conjunctivae nml ENT: positive: ENT inspection nml, Pharynx nml, No signs of dehydration. negative: Purulent nasal drainage, Pharyngeal erythema, Oral lesions Neck: positive: Nml inspection, Thyroid nml, No JVD, Trachea midline. negative: Thyromegaly, Lymphadenopathy (R), Lymphadenopathy (L), Stiff neck, Swelling/bruising, Tracheal deviation Respiratory: positive: Chest non-tender, No respiratory distress, Breath sounds nml. negative: Wheezes, Rales, Rhonchi Cardiovascular: positive: Regular rate & rhythm, No murmur, No gallop. negative: Irregularly irregular, Extrasystoles, Tachycardia, Bradycardia, JVD present, Systolic murmur, Diastolic murmur Peripheral Pulses: 2+ Radial (R), 2+ Radial (L) Abdomen: positive: Non-tender, No organomegaly, Nml bowel sounds. negative: Tenderness, Guarding, Rebound Back: positive: Nml inspection. negative: CVA tenderness (R), CVA tenderness (L) Skin: positive: Warm, Dry. negative: Cyanosis, Diaphoresis, Pallor Extremities: negative: Calf tenderness, Siva's sign/cords Neurologic/Psychiatric: positive: Oriented x3. negative: Weakness, Sensory loss, Facial droop, Slurred/abnml speech - Lab Results Fish Bones: 12/23/18 06:35 12/23/18 06:35 Other Labs: Lab Results x24hrs 12/23/18 12/23/18 12/22/18 Range/Units 06:35 06:35 14:23 WBC 13.7 H (4.8-10.8) x10^3/uL RBC 3.76 L (4.70-6.10) 10^6/uL Hgb 13.0 L (14.0-18.0) g/dL Hct 39.2 L (42.0-52.0) % MCV 104.1 H (80.0-94.0) fL MCH 34.6 H (27.0-31.0) pg MCHC 33.2 (32.0-36.0) g/dL RDW 14.5 (12.0-15.0) % Plt Count 130 (130-450) 10^3/uL MPV 8.5 (7.4-11.4) fL Neut # (Auto) 12.1 H (1.5-6.6) 10^3/uL Lymph # (Auto) 0.7 L (1.5-3.5) 10^3/uL [place] # (Auto) 0.9 (0.0-1.0) 10^3/uL Eos # (Auto) 0.0 (0.0-0.7) 10^3/uL Baso # (Auto) 0.0 (0.0-0.1) 10^3/uL Absolute Nucleated RBC 0.00 x10^3/uL Nucleated RBC % 0.0 /100WBC Sodium 137 (135-145) mmol/L Potassium 3.4 L (3.5-5.0) mmol/L Chloride 104 (101-111) mmol/L Carbon Dioxide 24 (21-32) mmol/L Anion Gap 9.0 (6-13) BUN 25 H (6-20) mg/dL Creatinine 1.5 H (0.6-1.2) mg/dL Estimated GFR (MDRD) 45 L (>89) Glucose 106 H (70-100) mg/dL Lactic Acid (0.5-2.2) mmol/L Calcium 7.6 L (8.5-10.3) mg/dL Total Bilirubin (0.2-1.0) mg/dL AST (10-42) IU/L ALT (10-60) IU/L Alkaline Phosphatase (42-121) IU/L Troponin I (<0.49) ng/mL B-Natriuretic Peptide 471 H (5-100) pg/mL Total Protein (6.7-8.2) g/dL Albumin (3.2-5.5) g/dL Globulin (2.1-4.2) g/dL Albumin/Globulin Ratio (1.0-2.2) Lipase (22-51) U/L Urine Color Urine Clarity (CLEAR) Urine pH (5.0-7.5) PH Ur Specific [place] (1.002-1.030) Urine Protein (NEGATIVE) mg/dL Urine Glucose (UA) (NEGATIVE) mg/dL Urine Ketones (NEGATIVE) mg/dL Urine Occult Blood (NEGATIVE) Urine Nitrite (NEGATIVE) Urine Bilirubin (NEGATIVE) Urine Urobilinogen (NORMAL) E.U./dL Ur Leukocyte Esterase (NEGATIVE) Urine RBC (0-5) /HPF Urine WBC (0-3) /HPF Ur Squamous Epith Cells (<= Few) Urine Bacteria (None Seen) /HPF Urine Mucus Ur Microscopic Review Urine Culture Comments 12/22/18 12/22/18 12/22/18 Range/Units 14:12 13:06 11:19 WBC (4.8-10.8) x10^3/uL RBC (4.70-6.10) 10^6/uL Hgb (14.0-18.0) g/dL Hct (42.0-52.0) % MCV (80.0-94.0) fL MCH (27.0-31.0) pg MCHC (32.0-36.0) g/dL RDW (12.0-15.0) % Plt Count (130-450) 10^3/uL MPV (7.4-11.4) fL Neut # (Auto) (1.5-6.6) 10^3/uL Lymph # (Auto) (1.5-3.5) 10^3/uL [place] # (Auto) (0.0-1.0) 10^3/uL Eos # (Auto) (0.0-0.7) 10^3/uL Baso # (Auto) (0.0-0.1) 10^3/uL Absolute Nucleated RBC x10^3/uL Nucleated RBC % /100WBC Sodium (135-145) mmol/L Potassium (3.5-5.0) mmol/L Chloride (101-111) mmol/L Carbon Dioxide (21-32) mmol/L Anion Gap (6-13) BUN (6-20) mg/dL Creatinine (0.6-1.2) mg/dL Estimated GFR (MDRD) (>89) Glucose (70-100) mg/dL Lactic Acid 2.2 (0.5-2.2) mmol/L Calcium (8.5-10.3) mg/dL Total Bilirubin (0.2-1.0) mg/dL AST (10-42) IU/L ALT (10-60) IU/L Alkaline Phosphatase (42-121) IU/L Troponin I < 0.04 (<0.49) ng/mL B-Natriuretic Peptide (5-100) pg/mL Total Protein (6.7-8.2) g/dL Albumin (3.2-5.5) g/dL Globulin (2.1-4.2) g/dL Albumin/Globulin Ratio (1.0-2.2) Lipase (22-51) U/L Urine Color DARK YELLOW Urine Clarity HAZY (CLEAR) Urine pH 5.5 (5.0-7.5) PH Ur Specific [place] >=1.030 H (1.002-1.030) Urine Protein 100 H (NEGATIVE) mg/dL Urine Glucose (UA) NEGATIVE (NEGATIVE) mg/dL Urine Ketones NEGATIVE (NEGATIVE) mg/dL Urine Occult Blood MODERATE H (NEGATIVE) Urine Nitrite NEGATIVE (NEGATIVE) Urine Bilirubin NEGATIVE (NEGATIVE) Urine Urobilinogen 1 (NORMAL) (NORMAL) E.U./dL Ur Leukocyte Esterase NEGATIVE (NEGATIVE) Urine RBC 0-5 (0-5) /HPF Urine WBC 0-3 (0-3) /HPF Ur Squamous Epith Cells MOD Squamous H (<= Few) Urine Bacteria Moderate H (None Seen) /HPF Urine Mucus Marked Strands Ur Microscopic Review INDICATED Urine Culture Comments NOT INDICATED 12/22/18 12/22/18 Range/Units 11:08 11:08 WBC 17.8 H (4.8-10.8) x10^3/uL RBC 4.43 L (4.70-6.10) 10^6/uL Hgb 15.2 (14.0-18.0) g/dL Hct 45.5 (42.0-52.0) % MCV 102.6 H (80.0-94.0) fL MCH 34.2 H (27.0-31.0) pg MCHC 33.3 (32.0-36.0) g/dL RDW 14.3 (12.0-15.0) % Plt Count 157 (130-450) 10^3/uL MPV 8.4 (7.4-11.4) fL Neut # (Auto) 16.6 H (1.5-6.6) 10^3/uL Lymph # (Auto) 0.5 L (1.5-3.5) 10^3/uL [place] # (Auto) 0.5 (0.0-1.0) 10^3/uL Eos # (Auto) 0.0 (0.0-0.7) 10^3/uL Baso # (Auto) 0.2 H (0.0-0.1) 10^3/uL Absolute Nucleated RBC 0.00 x10^3/uL Nucleated RBC % 0.0 /100WBC Sodium 136 (135-145) mmol/L Potassium 4.0 (3.5-5.0) mmol/L Chloride 99 L (101-111) mmol/L Carbon Dioxide 26 (21-32) mmol/L Anion Gap 11.0 (6-13) BUN 24 H (6-20) mg/dL Creatinine 1.5 H (0.6-1.2) mg/dL Estimated GFR (MDRD) 45 L (>89) Glucose 112 H (70-100) mg/dL Lactic Acid (0.5-2.2) mmol/L Calcium 8.9 (8.5-10.3) mg/dL Total Bilirubin 1.6 H (0.2-1.0) mg/dL AST 51 H (10-42) IU/L ALT 21 (10-60) IU/L Alkaline Phosphatase 56 (42-121) IU/L Troponin I (<0.49) ng/mL B-Natriuretic Peptide (5-100) pg/mL Total Protein 8.6 H (6.7-8.2) g/dL Albumin 4.1 (3.2-5.5) g/dL Globulin 4.5 H (2.1-4.2) g/dL Albumin/Globulin Ratio 0.9 L (1.0-2.2) Lipase 32 (22-51) U/L Urine Color Urine Clarity (CLEAR) Urine pH (5.0-7.5) PH Ur Specific [place] (1.002-1.030) Urine Protein (NEGATIVE) mg/dL Urine Glucose (UA) (NEGATIVE) mg/dL Urine Ketones (NEGATIVE) mg/dL Urine Occult Blood (NEGATIVE) Urine Nitrite (NEGATIVE) Urine Bilirubin (NEGATIVE) Urine Urobilinogen (NORMAL) E.U./dL Ur Leukocyte Esterase (NEGATIVE) Urine RBC (0-5) /HPF Urine WBC (0-3) /HPF Ur Squamous Epith Cells (<= Few) Urine Bacteria (None Seen) /HPF Urine Mucus Ur Microscopic Review Urine Culture Comments ABX Reporting Has patient been on IV antibiotics over the past 48 hours?: Yes Sepsis Event Note (H) - Evaluation Current Stage of Sepsis: Sepsis Possible source of Sepsis: positive: Genitourinary, Skin/soft tissue - Sepsis Criteria Sepsis Criteria: Recorded Temperature greater than 38.3C or Less than 36C, Recorded Heart Rate greater than 90 bpm, Recorded Respiratory Rate greater than 20, WBC count greater than 12,000 or less than 4000, COMPOUND MIXER: altered consciousness (unrelated to primary neuro pathology), Metabolic: lactate > 2 mmol/L Assessment/Plan - Problem List (1) Sepsis Impression: 12/23 left lower extremity cellulitis, warm, and tenderness. clinic improved today, reduced warm, and tenderness, and WBC is reduced to 13.4 from 17.8 pt has no more fever, chill. he report he feel better. continue Rocephin and Vancomycin followup blood culture (2) Hypothyroidism Conclusion/Plan: 12/23 pt is On synthroid check TSH (3) HTN (hypertension) Conclusion/Plan: 12/23 hold HCTZ and lisinopril, since pt has borderline BP continue vital and tele monitor (4) Asthma Conclusion/Plan: 12/23 stable, Not in exacerbation Continue home regimen. Breathing treatment prn (5) Depression Conclusion/Plan: stable, continue On zoloft (6)RASTA pt's creatinine increase to 1.5 from 0.8 on 05/28, significant reduced function. it seems from his prerenal azotemia, pt clinic present dehydration. IVF of NS, lab monitor hold neph toxical agents (7) elevated BNP pt has elevated BNP 471. pt had ECHO on 2014 which revealed unremarkable recheck ECHO, precaution of Fluid overload check BNP
[2018-12-23] MEDS: FORMOTEROL FUMARATE NEB 20 MCG/2 ML INH SCH ×2 (09:53→19:43)
[2018-12-23] MEDS: BUDESONIDE 0.5 MG/2 ML NEB INH SCH ×2 (09:53→19:43)
[2018-12-23] MEDS ORDERED: POTASSIUM CHLORIDE 10 MEQ CAPSULE PO ONE (11:00)
[2018-12-23] MEDS ORDERED: SODIUM CHLORIDE 0.9% 1,000 ML IV SCH (17:00)
[2018-12-23] MEDS: VANCOMYCIN INJ 1 GM, VANCOMYCIN INJ 500 MG in SODIUM CHLORIDE 0.9% 500 ML IV SCH (17:18)
--- NOTE | 2018-12-23 17:44 | Ultrasound Report ---
Reason: swelling, tenderness, DVT? special at left Procedure Date: 12/23/2018 Accession Number: [id number] / [id number] Procedure: US - Duplex Ext Veins Bilateral CPT Code: FULL RESULT: EXAM: BILATERAL LOWER EXTREMITY VENOUS ULTRASOUND EXAM DATE: 12/23/2018 03:32 PM. CLINICAL HISTORY: Sepsis. Lower extremity cellulitis with swelling and tenderness. COMPARISON: None. TECHNIQUE: Real-time sonographic vascular imaging was performed by the assistant finance manager through the lower extremities utilizing both color-flow and Doppler spectral analysis. Multiple hardware supplies sales representative static images were saved for review. FINDINGS: Right: Common Femoral Vein (CFV): Normal. CFV-GSV Junction: Normal. Profunda Femoral Vein (PFV): Normal. Femoral Vein (FV) Prox: Normal. Femoral Vein (FV) Mid: Normal. Femoral Vein (FV) Dist: Normal. Popliteal Vein: Normal. Posterior Tibial Veins: Limited visualization. Peroneal Veins: Limited visualization. Left: Common Femoral Vein (CFV): Normal. CFV-GSV Junction: Normal. Profunda Femoral Vein (PFV): Normal. Femoral Vein (FV) Prox: Normal. Femoral Vein (FV) Mid: Normal. Femoral Vein (FV) Dist: Normal. Popliteal Vein: Normal. Posterior Tibial Veins: Limited visualization. Peroneal Veins: Limited visualization. Other: Prominent left inguinal lymph nodes. IMPRESSION: No evidence for deep venous thrombosis bilaterally. RADIA
[2018-12-23] MEDS: MONTELUKAST 10 MG TABLET PO SCH (20:11)
[2018-12-24] MEDS: SODIUM CHLORIDE FLUSH 0.9% 10 ML SYRINGE IVP SCH ×3 (00:16→17:16)
[2018-12-24] MEDS: PANTOPRAZOLE 40 MG TABLET PO SCH (06:15)
[2018-12-24 06:32] LABS: BASOPHILS % (AUTO) 0.2 %; EOSINOPHILS # (AUTO) 0.1 10^3/uL (0.0-0.7); EOSINOPHILS % (AUTO) 0.7 %; HGB - HEMOGLOBIN 12.8 g/dL (14.0-18.0); LYMPHOCYTES # (AUTO) 0.7 10^3/uL (1.5-3.5); LYMPHOCYTES % (AUTO) 8.4 %; MEAN CORPUSCULAR HEMOGLOBIN 34.9 pg (27.0-31.0); MEAN CORPUSCULAR HGB CONC 33.4 g/dL (32.0-36.0); MEAN CORPUSCULAR VOLUME 104.3 fL (80.0-94.0); MEAN PLATELET VOLUME 8.4 fL (7.4-11.4); MONOCYTES # (AUTO) 0.5 10^3/uL (0.0-1.0); MONOCYTES % (AUTO) 6.4 %; NEUTROPHILS # (AUTO) 7.3 10^3/uL (1.5-6.6); NEUTROPHILS % (AUTO) 84.3 %; PLT - PLATELET COUNT 117 10^3/uL (130-450); RED BLOOD COUNT 3.68 10^6/uL (4.70-6.10); RED CELL DISTRIBUTION WIDTH 14.5 % (12.0-15.0); WHITE BLOOD COUNT 8.6 x10^3/uL (4.8-10.8)
[2018-12-24 06:42] LABS: CALCIUM 7.6 mg/dL (8.5-10.3); CREATININE 1.1 mg/dL (0.6-1.2)
[2018-12-24] MEDS ORDERED: LEVOTHYROXINE 100 MCG TABLET PO SCH ×2 (07:00→15:00)
[2018-12-24] MEDS: BUDESONIDE 0.5 MG/2 ML NEB INH SCH ×2 (07:36→19:45)
[2018-12-24] MEDS: FORMOTEROL FUMARATE NEB 20 MCG/2 ML INH SCH ×2 (07:36→19:45)
[2018-12-24] MEDS: cefTRIAXone 1 GM in SODIUM CHLORIDE 0.9% MINIBAG 100 ML IV SCH (08:42)
--- NOTE | 2018-12-24 08:51 | XRAY Report ---
Reason: SOB/hypoxia Procedure Date: 12/24/2018 Accession Number: [id number] / [id number] Procedure: XR - Chest 1 View X-Ray CPT Code: 81854 FULL RESULT: EXAM: CHEST RADIOGRAPHY EXAM DATE: 12/24/2018 08:41 AM. CLINICAL HISTORY: Shortness of breath and hypoxia. COMPARISON: Chest radiograph from 12/22/2018. TECHNIQUE: 1 view. FINDINGS: Lungs/Pleura: Mild diffuse interstitial prominence is present. There is suggestion of slightly asymmetric patchy right basilar opacity. Small right pleural effusion is demonstrated. No definite left pleural effusion. No pneumothorax. Mediastinum: There is mild prominence of the cardiomediastinal contour, which has not significantly changed. Pulmonary vasculature is mildly engorged and indistinct. Other: None. IMPRESSION: 1. Findings suggesting mild CHF/fluid overload, new from the prior examination. 2. Slightly asymmetric patchy right basilar opacity, which could represent asymmetric pulmonary edema, atelectasis, or superimposed infiltrate. 3. Small right pleural effusion. [facility]
[2018-12-24] MEDS: SERTRALINE 50 MG TABLET PO SCH (10:57)
[2018-12-24] MEDS: LEVOTHYROXINE 100 MCG TABLET PO SCH (10:59)
[2018-12-24] MEDS: LISINOPRIL 5 MG TABLET PO SCH (11:03)
[2018-12-24] MEDS: hydroCHLOROthiazide 25 MG TABLET PO SCH (11:04)
[2018-12-24] MEDS: POLYETHYLENE GLYCOL 3350 17 GM PACKET PO SCH (11:05)
[2018-12-24] MEDS: HEPARIN 5,000 UNIT/ML VIAL SUBQ SCH ×2 (11:29→21:04)
--- NOTE | 2018-12-24 13:46 | PROVIDER PROGRESS NOTE ---
Subjective - Prog Note Date Prog Note Date: 12/24/18 - Subjective Pt reports feeling: Improved Subjective: pt report he feel better, pt state " everything you did to me is working." he denies palpitation, shortness of breath, chest pain, fever, chill. pt's O2 sats is decreased from 100% on 2 liter to 93% on 2 liter of O2, present mild cough. Order CXR for pt Current Medications - Current Medications Current Medications: Active Medications Acetaminophen (Tylenol) 650 mg PO Q4HR PRN PRN Reason: Pain 1 to 4 Albuterol () 2.5 mg INH RTQ4H PRN PRN Reason: Wheezing Atorvastatin Calcium (Lipitor) 10 mg PO QPM [facility] Budesonide (Pulmicort) 0.5 mg INH RTBID [facility] Last Admin: 12/24/18 07:36 Dose: 0.5 mg Formoterol Fumarate (Perforomist) 20 mcg INH RTBID [facility] Last Admin: 12/24/18 07:36 Dose: 20 mcg Furosemide (Lasix) 20 mg PO DAILY [facility] Heparin Sodium (Porcine) () 5,000 unit SUBQ BID [facility] Last Admin: 12/24/18 11:29 Dose: 5,000 unit Hydrochlorothiazide (Hydrodiuril) 25 mg PO DAILY [facility] Last Admin: 12/24/18 11:04 Dose: 25 mg Ceftriaxone Sodium 1 gm/ (Sodium Chloride) 100 mls @ 200 mls/hr IV DAILY [facility] Last Infusion: 12/24/18 09:38 Dose: Infused Vancomycin HCl 1 gm/Vancomycin HCl 500 mg/ Sodium Chloride 500 mls @ 250 mls/hr IV Q24H [facility] Last Infusion: 12/23/18 20:13 Dose: Infused Levothyroxine Sodium (Synthroid) 300 mcg PO QDAC [facility] Last Admin: 12/24/18 10:59 Dose: 300 mcg Lisinopril (Zestril) 10 mg PO DAILY [facility] Last Admin: 12/24/18 11:03 Dose: 10 mg Montelukast Sodium (Singulair) 10 mg PO QPM [facility] Last Admin: 12/23/18 20:11 Dose: 10 mg Pantoprazole Sodium (Protonix) 40 mg PO QDAC [facility] Last Admin: 12/24/18 06:15 Dose: 40 mg Polyethylene Glycol (Miralax) 17 gm PO DAILY [facility] Last Admin: 12/24/18 11:05 Dose: 17 gm Sertraline HCl (Zoloft) 100 mg PO DAILY [facility] Last Admin: 12/24/18 10:57 Dose: 100 mg Sodium Chloride (Normal Saline Flush 0.9%) 10 ml IVP PRN PRN PRN Reason: NEEDED PER PROVIDER ORDERS Sodium Chloride (Normal Saline Flush 0.9%) 10 ml IVP 0100,0900,1700 [facility] Last Admin: 12/24/18 09:38 Dose: 10 ml Albuterol [Ventolin Hfa] 2 puffs INH Q4H PRN 03/29/13 Fluticasone/Salmeterol [Advair 250-50 Diskus] 1 puffs INH BID 07/21/15 Montelukast [Singulair] 10 mg PO DAILY 09/10/15 Atorvastatin [Lipitor] 10 mg PO QPM 12/23/18 Levothyroxine Sodium [Synthroid] 300 mcg PO QDAC 12/23/18 Lisinopril [Zestril] 10 mg PO DAILY 12/23/18 Sertraline HCl [Zoloft] 100 mg PO DAILY 12/23/18 hydroCHLOROthiazide [Hydrodiuril] 25 mg PO DAILY 12/23/18 Objective - Vital Signs/Intake & Output Reviewed Vital Signs: Yes Vital Signs: Vital Signs x48h Temp Pulse Pulse Resp BP Pulse Ox 12/24/18 12:27 36.3 C L 68 18 125/75 96 12/24/18 08:07 36.2 C L 61 18 119/54 L 95 12/24/18 07:38 62 16 Intake & Output: Intake & Output 12/21/18 12/22/18 12/23/18 12/24/18 23:59 23:59 23:59 23:59 Intake Total 1600 4353.333 1300 Output Total 300 100 Balance 1600 4053.333 1200 - Objective General Appearance: positive: No acute distress, Alert. negative: Lethargic Eyes Bilateral: positive: Normal inspection, PERRL, No lid inflammation, Conjunctivae nml ENT: positive: ENT inspection nml, Pharynx nml, No signs of dehydration. negative: Purulent nasal drainage, Pharyngeal erythema, Oral lesions Neck: positive: Nml inspection, Thyroid nml, No JVD, Trachea midline. negative: Thyromegaly, Lymphadenopathy (R), Lymphadenopathy (L), Stiff neck, Swelling/bruising, Tracheal deviation Respiratory: positive: Chest non-tender, No respiratory distress. negative: Wheezes, Rales, Rhonchi Cardiovascular: positive: Regular rate & rhythm, No murmur, No gallop. negative: Irregularly irregular, Extrasystoles, Tachycardia, Bradycardia, JVD present, Systolic murmur, Diastolic murmur Peripheral Pulses: 2+ Radial (R), 2+ Radial (L), 2+ Dorsalis pedis (R), 2+ Dorsalis pedis (L) Abdomen: positive: Non-tender, No organomegaly, Nml bowel sounds, No distention. negative: Tenderness, Guarding, Rebound Back: positive: Nml inspection. negative: CVA tenderness (R), CVA tenderness (L) Skin: positive: Warm, Dry, Skin rash. negative: Cyanosis, Diaphoresis, Pallor Extremities: negative: Calf tenderness, Joint swelling, Siva's sign/cords Neurologic/Psychiatric: positive: Oriented x3, Sensation nml, Mood/affect nml. negative: Weakness, Sensory loss, Facial droop, Slurred/abnml speech, Depressed mood/affect - Lab Results Fish Bones: 12/24/18 06:22 12/24/18 06:22 Other Labs: Lab Results x24hrs 12/24/18 12/24/18 12/24/18 Range/Units 06:22 06:22 06:22 WBC (4.8-10.8) x10^3/uL RBC (4.70-6.10) 10^6/uL Hgb (14.0-18.0) g/dL Hct (42.0-52.0) % MCV (80.0-94.0) fL MCH (27.0-31.0) pg MCHC (32.0-36.0) g/dL RDW (12.0-15.0) % Plt Count (130-450) 10^3/uL MPV (7.4-11.4) fL Neut # (Auto) (1.5-6.6) 10^3/uL Lymph # (Auto) (1.5-3.5) 10^3/uL [place] # (Auto) (0.0-1.0) 10^3/uL Eos # (Auto) (0.0-0.7) 10^3/uL Baso # (Auto) (0.0-0.1) 10^3/uL Absolute Nucleated RBC x10^3/uL Nucleated RBC % /100WBC Sodium 135 (135-145) mmol/L Potassium 3.7 (3.5-5.0) mmol/L Chloride 105 (101-111) mmol/L Carbon Dioxide 23 (21-32) mmol/L Anion Gap 7.0 (6-13) BUN 23 H (6-20) mg/dL Creatinine 1.1 (0.6-1.2) mg/dL Estimated GFR (MDRD) 64 L (>89) Glucose 95 (70-100) mg/dL Calcium 7.6 L (8.5-10.3) mg/dL B-Natriuretic Peptide 199 H (5-100) pg/mL TSH 94.49 H (0.34-5.60) uIU/mL 12/24/18 Range/Units 06:22 WBC 8.6 (4.8-10.8) x10^3/uL RBC 3.68 L (4.70-6.10) 10^6/uL Hgb 12.8 L (14.0-18.0) g/dL Hct 38.4 L (42.0-52.0) % MCV 104.3 H (80.0-94.0) fL MCH 34.9 H (27.0-31.0) pg MCHC 33.4 (32.0-36.0) g/dL RDW 14.5 (12.0-15.0) % Plt Count 117 L (130-450) 10^3/uL MPV 8.4 (7.4-11.4) fL Neut # (Auto) 7.3 H (1.5-6.6) 10^3/uL Lymph # (Auto) 0.7 L (1.5-3.5) 10^3/uL [place] # (Auto) 0.5 (0.0-1.0) 10^3/uL Eos # (Auto) 0.1 (0.0-0.7) 10^3/uL Baso # (Auto) 0.0 (0.0-0.1) 10^3/uL Absolute Nucleated RBC 0.01 x10^3/uL Nucleated RBC % 0.2 /100WBC Sodium (135-145) mmol/L Potassium (3.5-5.0) mmol/L Chloride (101-111) mmol/L Carbon Dioxide (21-32) mmol/L Anion Gap (6-13) BUN (6-20) mg/dL Creatinine (0.6-1.2) mg/dL Estimated GFR (MDRD) (>89) Glucose (70-100) mg/dL Calcium (8.5-10.3) mg/dL B-Natriuretic Peptide (5-100) pg/mL TSH (0.34-5.60) uIU/mL ABX Reporting Has patient been on IV antibiotics over the past 48 hours?: Yes Sepsis Event Note (H) - Evaluation Current Stage of Sepsis: Sepsis Possible source of Sepsis: positive: Genitourinary, Skin/soft tissue - Sepsis Criteria Sepsis Criteria: Recorded Temperature greater than 38.3C or Less than 36C, Recorded Heart Rate greater than 90 bpm, Recorded Respiratory Rate greater than 20, WBC count greater than 12,000 or less than 4000, TURNER OFF: altered consciousness (unrelated to primary neuro pathology), Metabolic: lactate > 2 mmol/L Assessment/Plan - Problem List (1) Sepsis Impression: 12/24great improved and stable. WBC is normal now. No more fever, chill. Blood culture is negative preliminary. BP is in WNL continue antibiotics 12/23 left lower extremity cellulitis, warm, and tenderness. clinic improved today, reduced warm, and tenderness, and WBC is reduced to 13.4 from 17.8 pt has no more fever, chill. he report he feel better. continue Rocephin and Vancomycin followup blood culture (2) Hypothyroidism Conclusion/Plan: 12/24 pt has significant elevated TSH 94. will recheck TSH, and check Free T4/3 add 100mcg levothyroxine, so pt had total 400 mcg Levothyroxine now. 12/23 pt is On synthroid check TSH (3) HTN (hypertension) Conclusion/Plan: 12/23 hold HCTZ and lisinopril, since pt has borderline BP continue vital and tele monitor (4) Asthma Conclusion/Plan: 12/23 stable, Not in exacerbation Continue home regimen. Breathing treatment prn (5) Depression Conclusion/Plan: stable, continue On zoloft (6)RASTA pt's creatinine increase to 1.5 from 0.8 on 05/28, significant reduced function. it seems from his prerenal azotemia, pt clinic present dehydration. IVF of NS, lab monitor hold neph toxical agents (7) elevated BNP pt has elevated BNP 471. pt had ECHO on 2014 which revealed unremarkable recheck ECHO, precaution of Fluid overload check BNP (7) pulmonary edema CXR suggest mild CHF fluid overload, mild pulmonary edema. Clinic pt's sats decreased with mild cough order ECHO, is pending Lasix continue antibiotics reconcile home HCTZ (8) left lower extremity cellulitis pt present cellulitis on lower extremity on left. skin is intact. It appear improved. swelling, and tenderness and erythema are significantly reduced, WBC is down to normal. blood culture is negative. continue antibiotics
[2018-12-24] MEDS: FUROSEMIDE 20 MG TABLET PO SCH (14:41)
[2018-12-24] MEDS: VANCOMYCIN INJ 1 GM, VANCOMYCIN INJ 500 MG in SODIUM CHLORIDE 0.9% 500 ML IV SCH (17:16)
[2018-12-24] MEDS: MONTELUKAST 10 MG TABLET PO SCH (21:03)
[2018-12-24] MEDS: ATORVASTATIN 10 MG TABLET PO SCH (21:03)
[2018-12-25] MEDS: SODIUM CHLORIDE FLUSH 0.9% 10 ML SYRINGE IVP SCH ×4 (00:43→23:46)
[2018-12-25 05:47] LABS: BASOPHILS % (AUTO) 0.1 %; EOSINOPHILS % (AUTO) 0.4 %; HGB - HEMOGLOBIN 12.2 g/dL (14.0-18.0); LYMPHOCYTES # (AUTO) 0.7 10^3/uL (1.5-3.5); LYMPHOCYTES % (AUTO) 6.6 %; MEAN CORPUSCULAR HEMOGLOBIN 35.1 pg (27.0-31.0); MEAN CORPUSCULAR HGB CONC 34.1 g/dL (32.0-36.0); MEAN CORPUSCULAR VOLUME 102.8 fL (80.0-94.0); MEAN PLATELET VOLUME 8.1 fL (7.4-11.4); MONOCYTES # (AUTO) 0.7 10^3/uL (0.0-1.0); MONOCYTES % (AUTO) 6.9 %; NEUTROPHILS # (AUTO) 9.3 10^3/uL (1.5-6.6); PLT - PLATELET COUNT 129 10^3/uL (130-450); RED BLOOD COUNT 3.49 10^6/uL (4.70-6.10); RED CELL DISTRIBUTION WIDTH 14.4 % (12.0-15.0); WHITE BLOOD COUNT 10.8 x10^3/uL (4.8-10.8)
[2018-12-25 05:59] LABS: CALCIUM 7.9 mg/dL (8.5-10.3)
[2018-12-25 06:20] LABS: FREE T4 (FREE THYROXINE) 0.33 ng/dL (0.58-1.64)
[2018-12-25] MEDS: PANTOPRAZOLE 40 MG TABLET PO SCH (06:30)
[2018-12-25] MEDS: LEVOTHYROXINE 100 MCG TABLET PO SCH (06:30)
[2018-12-25] MEDS: ALBUTEROL NEB 2.5 MG/3 ML INH PRN ×2 (07:54→20:14)
[2018-12-25] MEDS: BUDESONIDE 0.5 MG/2 ML NEB INH SCH ×2 (07:54→20:14)
[2018-12-25] MEDS: FORMOTEROL FUMARATE NEB 20 MCG/2 ML INH SCH ×2 (07:54→20:13)
[2018-12-25] MEDS ORDERED: POTASSIUM CHLORIDE 20 MEQ TABLET PO ONE ×2 (08:08→11:25)
[2018-12-25 08:34] LABS: THYROID STIMULATING HORMONE 71.98 uIU/mL (0.34-5.60)
[2018-12-25] MEDS: POLYETHYLENE GLYCOL 3350 17 GM PACKET PO SCH (08:55)
[2018-12-25] MEDS: HEPARIN 5,000 UNIT/ML VIAL SUBQ SCH ×2 (08:55→21:00)
[2018-12-25] MEDS: LISINOPRIL 5 MG TABLET PO SCH (08:59)
[2018-12-25] MEDS: SERTRALINE 50 MG TABLET PO SCH (08:59)
[2018-12-25] MEDS: FUROSEMIDE 20 MG TABLET PO SCH (08:59)
[2018-12-25] MEDS: hydroCHLOROthiazide 25 MG TABLET PO SCH (09:00)
[2018-12-25] MEDS: cefTRIAXone 2 GM in SODIUM CHLORIDE 0.9% MINIBAG 100 ML IV SCH (09:01)
--- NOTE | 2018-12-25 10:16 | ADVANCE CARE PLANNING NOTE ---
Advance Care Planning - Date/Time Date: 12/25/18
--- NOTE | 2018-12-25 12:30 | PROVIDER PROGRESS NOTE ---
Subjective - Prog Note Date Prog Note Date: 12/25/18 - Subjective Pt reports feeling: No change Subjective: pt report fatigue and weakness. he denies fever, chill, chest pain. Current Medications - Current Medications Current Medications: Active Medications Acetaminophen (Tylenol) 650 mg PO Q4HR PRN PRN Reason: Pain 1 to 4 Albuterol () 2.5 mg INH RTQ4H PRN PRN Reason: Wheezing Last Admin: 12/25/18 07:54 Dose: 2.5 mg Atorvastatin Calcium (Lipitor) 10 mg PO QPM [facility] Last Admin: 12/24/18 21:03 Dose: 10 mg Budesonide (Pulmicort) 0.5 mg INH RTBID [facility] Last Admin: 12/25/18 07:54 Dose: 0.5 mg Formoterol Fumarate (Perforomist) 20 mcg INH RTBID [facility] Last Admin: 12/25/18 07:54 Dose: 20 mcg Furosemide (Lasix Inj 20mg Vial) 20 mg IVP BIDDIURETIC [facility] Heparin Sodium (Porcine) () 5,000 unit SUBQ BID [facility] Last Admin: 12/25/18 08:55 Dose: 5,000 unit Hydrochlorothiazide (Hydrodiuril) 25 mg PO DAILY [facility] Last Admin: 12/25/18 09:00 Dose: 25 mg Vancomycin HCl 1 gm/Vancomycin HCl 500 mg/ Sodium Chloride 500 mls @ 250 mls/hr IV Q24H [facility] Last Infusion: 12/24/18 19:55 Dose: Infused Ceftriaxone Sodium 2 gm/ (Sodium Chloride) 100 mls @ 200 mls/hr IV DAILY [facility] Last Infusion: 12/25/18 10:26 Dose: Infused Levothyroxine Sodium (Synthroid) 300 mcg PO QDAC [facility] Last Admin: 12/25/18 06:30 Dose: 300 mcg Lisinopril (Zestril) 10 mg PO DAILY [facility] Last Admin: 12/25/18 08:59 Dose: 10 mg Metoprolol Succinate (Toprol Xl) 12.5 mg PO DAILY [facility] Montelukast Sodium (Singulair) 10 mg PO QPM [facility] Last Admin: 12/24/18 21:03 Dose: 10 mg Pantoprazole Sodium (Protonix) 40 mg PO QDAC [facility] Last Admin: 12/25/18 06:30 Dose: 40 mg Polyethylene Glycol (Miralax) 17 gm PO DAILY [facility] Last Admin: 12/25/18 08:55 Dose: 17 gm Sertraline HCl (Zoloft) 100 mg PO DAILY [facility] Last Admin: 12/25/18 08:59 Dose: 100 mg Sodium Chloride (Normal Saline Flush 0.9%) 10 ml IVP PRN PRN PRN Reason: NEEDED PER PROVIDER ORDERS Sodium Chloride (Normal Saline Flush 0.9%) 10 ml IVP 0100,0900,1700 [facility] Last Admin: 12/25/18 08:54 Dose: 10 ml Albuterol [Ventolin Hfa] 2 puffs INH Q4H PRN 03/29/13 Fluticasone/Salmeterol [Advair 250-50 Diskus] 1 puffs INH BID 07/21/15 Montelukast [Singulair] 10 mg PO DAILY 09/10/15 Atorvastatin [Lipitor] 10 mg PO QPM 12/23/18 Levothyroxine Sodium [Synthroid] 300 mcg PO QDAC 12/23/18 Lisinopril [Zestril] 10 mg PO DAILY 12/23/18 Sertraline HCl [Zoloft] 100 mg PO DAILY 12/23/18 hydroCHLOROthiazide [Hydrodiuril] 25 mg PO DAILY 12/23/18 Objective - Vital Signs/Intake & Output Reviewed Vital Signs: Yes Vital Signs: Vital Signs x48h Temp Pulse Pulse Resp BP BP Pulse Ox 12/25/18 12:06 36.5 C 57 L 16 122/63 97 12/25/18 08:07 36.6 C 59 L 18 120/80 96 12/25/18 07:57 59 L 16 12/25/18 05:00 36.8 C 66 18 122/66 94 Intake & Output: Intake & Output 12/22/18 12/23/18 12/24/18 12/25/18 23:59 23:59 23:59 23:59 Intake Total 1600 4353.333 2325 720 Output Total 300 2000 545 Balance 1600 4053.333 325 175 - Objective General Appearance: positive: No acute distress, Alert. negative: Lethargic Eyes Bilateral: positive: Normal inspection, PERRL, No lid inflammation, Conjunctivae nml ENT: positive: ENT inspection nml, Pharynx nml, No signs of dehydration. neg ative: Purulent nasal drainage, Pharyngeal erythema, Oral lesions Neck: positive: Nml inspection, Thyroid nml, No JVD, Trachea midline. negative: Thyromegaly, Lymphadenopathy (R), Lymphadenopathy (L), Stiff neck, Swelling/bruising, Tracheal deviation Respiratory: positive: Chest non-tender, No respiratory distress, Breath sounds nml. negative: Wheezes, Rales, Rhonchi Cardiovascular: positive: Regular rate & rhythm, No murmur, No gallop. negative: Irregularly irregular, Extrasystoles, Tachycardia, Bradycardia, JVD present, Systolic murmur, Diastolic murmur Peripheral Pulses: 2+ Radial (R), 2+ Radial (L) Abdomen: positive: Non-tender, No organomegaly, Nml bowel sounds. negative: Tenderness, Guarding, Rebound Back: positive: Nml inspection. negative: CVA tenderness (R), CVA tenderness (L) Skin: positive: Warm, Dry. negative: Cyanosis, Diaphoresis, Pallor Extremities: positive: Non-tender. negative: Calf tenderness, Siva's sign/cords Neurologic/Psychiatric: positive: Oriented x3. negative: Sensory loss, Facial droop, Slurred/abnml speech - Lab Results Fish Bones: 12/25/18 05:43 12/25/18 05:43 Other Labs: Lab Results x24hrs 12/25/18 12/25/18 12/25/18 Range/Units 05:43 05:43 05:43 WBC (4.8-10.8) x10^3/uL RBC (4.70-6.10) 10^6/uL Hgb (14.0-18.0) g/dL Hct (42.0-52.0) % MCV (80.0-94.0) fL MCH (27.0-31.0) pg MCHC (32.0-36.0) g/dL RDW (12.0-15.0) % Plt Count (130-450) 10^3/uL MPV (7.4-11.4) fL Neut # (Auto) (1.5-6.6) 10^3/uL Lymph # (Auto) (1.5-3.5) 10^3/uL [place] # (Auto) (0.0-1.0) 10^3/uL Eos # (Auto) (0.0-0.7) 10^3/uL Baso # (Auto) (0.0-0.1) 10^3/uL Absolute Nucleated RBC x10^3/uL Nucleated RBC % /100WBC Sodium 139 (135-145) mmol/L Potassium 3.0 L (3.5-5.0) mmol/L Chloride 103 (101-111) mmol/L Carbon Dioxide 26 (21-32) mmol/L Anion Gap 10.0 (6-13) BUN 17 (6-20) mg/dL Creatinine 1.0 (0.6-1.2) mg/dL Estimated GFR (MDRD) 72 L (>89) Glucose 107 H (70-100) mg/dL Calcium 7.9 L (8.5-10.3) mg/dL TSH 71.98 H (0.34-5.60) uIU/mL Free T4 0.33 L (0.58-1.64) ng/dL Free T3 pg/mL 1.73 L (2.5-3.9) pg/mL 12/25/18 12/24/18 Range/Units 05:43 06:22 WBC 10.8 (4.8-10.8) x10^3/uL RBC 3.49 L (4.70-6.10) 10^6/uL Hgb 12.2 L (14.0-18.0) g/dL Hct 35.9 L (42.0-52.0) % MCV 102.8 H (80.0-94.0) fL MCH 35.1 H (27.0-31.0) pg MCHC 34.1 (32.0-36.0) g/dL RDW 14.4 (12.0-15.0) % Plt Count 129 L (130-450) 10^3/uL MPV 8.1 (7.4-11.4) fL Neut # (Auto) 9.3 H (1.5-6.6) 10^3/uL Lymph # (Auto) 0.7 L (1.5-3.5) 10^3/uL [place] # (Auto) 0.7 (0.0-1.0) 10^3/uL Eos # (Auto) 0.0 (0.0-0.7) 10^3/uL Baso # (Auto) 0.0 (0.0-0.1) 10^3/uL Absolute Nucleated RBC 0.01 x10^3/uL Nucleated RBC % 0.1 /100WBC Sodium (135-145) mmol/L Potassium (3.5-5.0) mmol/L Chloride (101-111) mmol/L Carbon Dioxide (21-32) mmol/L Anion Gap (6-13) BUN (6-20) mg/dL Creatinine (0.6-1.2) mg/dL Estimated GFR (MDRD) (>89) Glucose (70-100) mg/dL Calcium (8.5-10.3) mg/dL TSH 94.49 H (0.34-5.60) uIU/mL Free T4 (0.58-1.64) ng/dL Free T3 pg/mL (2.5-3.9) pg/mL ABX Reporting Has patient been on IV antibiotics over the past 48 hours?: Yes Sepsis Event Note (H) - Evaluation Current Stage of Sepsis: Sepsis Possible source of Sepsis: positive: Genitourinary, Skin/soft tissue - Sepsis Criteria Sepsis Criteria: Recorded Temperature greater than 38.3C or Less than 36C, R ecorded Heart Rate greater than 90 bpm, Recorded Respiratory Rate greater than 20, WBC count greater than 12,000 or less than 4000, RADIO ADJUSTER: altered consciousness (unrelated to primary neuro pathology), Metabolic: lactate > 2 mmol/L Assessment/Plan - Problem List (1) Sepsis Impression: 12/25 pt had no more fever, Blood culture is negative, BP is normative, WBC is WNL now. it appear pt improved significantly, continue finish the treatment course with antibiotics 12/24great improved and stable. WBC is normal now. No more fever, chill. Blood culture is negative preliminary. BP is in WNL continue antibiotics 12/23 left lower extremity cellulitis, warm, and tenderness. clinic improved today, reduced warm, and tenderness, and WBC is reduced to 13.4 from 17.8 pt has no more fever, chill. he report he feel better. continue Rocephin and Vancomycin followup blood culture (2) Hypothyroidism Conclusion/Plan: 12/25 it appear pt had significant elevated TSH, it appears derived from his medical non-compliant. second TSH is down to 72 after two dosage of Lev othyroxine continue Levothyroxine 12/24 pt has significant elevated TSH 94. will recheck TSH, and check Free T4/3 add 100mcg levothyroxine, so pt had total 400 mcg Levothyroxine now. 12/23 pt is On synthroid check TSH (3) HTN (hypertension) Conclusion/Plan: stable 12/23 hold HCTZ and lisinopril, since pt has borderline BP continue vital and tele monitor (4) Asthma Conclusion/Plan: 12/23 stable, Not in exacerbation Continue home regimen. Breathing treatment prn (5) Depression Conclusion/Plan: stable, continue On zoloft (6)RASTA 12/25 stable/resolved, today creatinine is 1.0 pt's creatinine increase to 1.5 from 0.8 on 05/28, significant reduced function. it seems from his prerenal azotemia, pt clinic present dehydration. IVF of NS, lab monitor hold neph toxical agents (7) elevated BNP 12/25pt's BNP is down to 200, continue to use diuretics and lab monitor pt has elevated BNP 471. pt had ECHO on 2014 which revealed unremarkable recheck ECHO, precaution of Fluid overload check BNP (7) pulmonary edema 12/25 pt's sat is improved, 97% sats on 2 liter, continue diuretics CXR suggest mild CHF fluid overload, mild pulmonary edema. Clinic pt's sats decreased with mild cough order ECHO, is pending Lasix continue antibiotics reconcile home HCTZ (8) left lower extremity cellulitis 12/25 cellulitis improved, swell and erythema reduced, WBC is WNL, continue antibiotics rise leg for venous return pt present cellulitis on lower extremity on left. skin is intact. It appear improved. swelling, and tenderness and erythema are significantly reduced, WBC is down to normal. blood culture is negative. continue antibiotics (9) systolic heart failure [place] Stage 3 today ECHO pt's EF 30-35%, diastolic seems mildly elevated pressure. pt feel fatigue, weakness continue diuretics, Lisinopril, add lower dosage of beta-block (10) medical non-compliant pt did not take his medications per his report, his TSH is very high. consult for pt's medical compliant (11) weakness pt report weakness, consult with PT/OT, followup
[2018-12-25] MEDS: SODIUM CHLORIDE FLUSH 0.9% 10 ML SYRINGE IVP PRN (14:38)
[2018-12-25] MEDS: FUROSEMIDE 20 MG/2 ML VIAL IVP SCH (14:38)
[2018-12-25] MEDS: VANCOMYCIN INJ 1 GM, VANCOMYCIN INJ 500 MG in SODIUM CHLORIDE 0.9% 500 ML IV SCH (17:35)
[2018-12-25 17:53] LABS: VANCOMYCIN,TROUGH 15.4 ug/mL (10.0-20.0)
[2018-12-25] MEDS: MONTELUKAST 10 MG TABLET PO SCH (20:54)
[2018-12-25] MEDS: ATORVASTATIN 10 MG TABLET PO SCH (20:55)
[2018-12-26 05:56] LABS: BASOPHILS % (AUTO) 0.5 %; EOSINOPHILS % (AUTO) 1.4 %; HGB - HEMOGLOBIN 11.9 g/dL (14.0-18.0); LYMPHOCYTES % (AUTO) 7.9 %; MEAN CORPUSCULAR HEMOGLOBIN 35.2 pg (27.0-31.0); MEAN CORPUSCULAR HGB CONC 34.4 g/dL (32.0-36.0); MEAN CORPUSCULAR VOLUME 102.5 fL (80.0-94.0); MEAN PLATELET VOLUME 7.9 fL (7.4-11.4); MONOCYTES % (AUTO) 7.3 %; NEUTROPHILS % (AUTO) 82.9 %; PLT - PLATELET COUNT 137 10^3/uL (130-450); RED BLOOD COUNT 3.38 10^6/uL (4.70-6.10); RED CELL DISTRIBUTION WIDTH 14.5 % (12.0-15.0); WHITE BLOOD COUNT 9.1 x10^3/uL (4.8-10.8)
[2018-12-26 06:08] LABS: CALCIUM 7.7 mg/dL (8.5-10.3); CREATININE 0.9 mg/dL (0.6-1.2); MAGNESIUM 1.9 mg/dL (1.7-2.8)
[2018-12-26] MEDS: LEVOTHYROXINE 100 MCG TABLET PO SCH (06:10)
[2018-12-26] MEDS: PANTOPRAZOLE 40 MG TABLET PO SCH (06:10)
[2018-12-26] MEDS: SODIUM CHLORIDE FLUSH 0.9% 10 ML SYRINGE IVP PRN (06:11)
[2018-12-26] MEDS: FUROSEMIDE 20 MG/2 ML VIAL IVP SCH (06:11)
[2018-12-26 06:16] LABS: ABNORMAL LYMPHS % (MANUAL) 0 %
[2018-12-26 06:41] LABS: BAND NEUTROPHILS % (MANUAL) 3 %; EOSINOPHILS # (MANUAL) 0.4 10^3/uL (0-0.7); LYMPHOCYTES % (MANUAL) 11 %; MONOCYTES # (MANUAL) 0.5 10^3/uL (0.0-1.0); NEUTROPHILS # (MANUAL) 7.2 10^3/uL (1.5-6.6); NEUTROPHILS % (MANUAL) 76 %
[2018-12-26 06:42] LABS: PLATELET ESTIMATE, MANUAL NORMAL (130-450,000) (NORMAL); PLATELET MORPHOLOGY NORMAL APPEARANCE (NORMAL); RBC MORPHOLOGY (MULTIPLE) NORMAL APPEARANCE (NORMAL)
[2018-12-26 06:43] LABS: DIFFERENTIAL COMMENT MANUAL DIFFERENTIAL
[2018-12-26] MEDS: BUDESONIDE 0.5 MG/2 ML NEB INH SCH ×2 (07:28→20:01)
[2018-12-26] MEDS: ALBUTEROL NEB 2.5 MG/3 ML INH PRN (07:28)
[2018-12-26] MEDS: FORMOTEROL FUMARATE NEB 20 MCG/2 ML INH SCH ×2 (07:28→20:01)
[2018-12-26] MEDS: HEPARIN 5,000 UNIT/ML VIAL SUBQ SCH ×2 (08:14→20:39)
[2018-12-26] MEDS: cefTRIAXone 2 GM in SODIUM CHLORIDE 0.9% MINIBAG 100 ML IV SCH (08:14)
[2018-12-26] MEDS: SODIUM CHLORIDE FLUSH 0.9% 10 ML SYRINGE IVP SCH ×2 (08:24→19:22)
[2018-12-26] MEDS: SERTRALINE 50 MG TABLET PO SCH (08:26)
[2018-12-26] MEDS: POLYETHYLENE GLYCOL 3350 17 GM PACKET PO SCH (08:28)
[2018-12-26] MEDS ORDERED: METOPROLOL SUCCINATE 25 MG TABLET PO SCH (09:00)
[2018-12-26] MEDS: SPIRONOLACTONE 25 MG TABLET PO SCH (11:25)
[2018-12-26] MEDS: LISINOPRIL 5 MG TABLET PO SCH (11:25)
[2018-12-26] MEDS: VANCOMYCIN INJ 1 GM, VANCOMYCIN INJ 500 MG in SODIUM CHLORIDE 0.9% 500 ML IV SCH (19:21)
[2018-12-26] MEDS: MONTELUKAST 10 MG TABLET PO SCH (20:39)
[2018-12-26] MEDS: ATORVASTATIN 10 MG TABLET PO SCH (20:39)
--- NOTE | 2018-12-26 21:50 | PROVIDER PROGRESS NOTE ---
Subjective - Prog Note Date Prog Note Date: 12/26/18 Prog Note Time: 09:00 - Subjective Pt reports feeling: Improved Subjective: Al had no complaints and was concerned about informing his about his upcoming placement. He has intermittent pain to his BLEs, but tolerating to be in the chair for meals. Current Medications - Current Medications Current Medications: Active Medications: Acetaminophen (Tylenol) 650 mg PO Q4HR PRN PRN Reason: Pain 1 to 4 Albuterol () 2.5 mg INH RTQ4H PRN PRN Reason: Wheezing Last Admin: 12/26/18 07:28 Dose: 2.5 mg Atorvastatin Calcium (Lipitor) 10 mg PO QPM [facility] Last Admin: 12/26/18 20:39 Dose: 10 mg Budesonide (Pulmicort) 0.5 mg INH RTBID [facility] Last Admin: 12/26/18 20:01 Dose: 0.5 mg Formoterol Fumarate (Perforomist) 20 mcg INH RTBID [facility] Last Admin: 12/26/18 20:01 Dose: 20 mcg Furosemide (Lasix) 20 mg PO DAILY [facility] Heparin Sodium (Porcine) () 5,000 unit SUBQ BID [facility] Last Admin: 12/26/18 20:39 Dose: 5,000 unit Vancomycin HCl 1 gm/Vancomycin HCl 500 mg/ Sodium Chloride 500 mls @ 250 mls/hr IV Q24H [facility] Last Admin: 12/26/18 19:21 Dose: 250 mls/hr Ceftriaxone Sodium 2 gm/ (Sodium Chloride) 100 mls @ 200 mls/hr IV DAILY [facility] Last Infusion: 12/26/18 11:38 Dose: Infused Levothyroxine Sodium (Synthroid) 300 mcg PO QDAC [facility] Last Admin: 12/26/18 06:10 Dose: 300 mcg Lisinopril (Zestril) 2.5 mg PO DAILY [facility] Last Admin: 12/26/18 11:25 Dose: 2.5 mg Montelukast Sodium (Singulair) 10 mg PO QPM [facility] Last Admin: 12/26/18 20:39 Dose: 10 mg Pantoprazole Sodium (Protonix) 40 mg PO QDAC [facility] Last Admin: 12/26/18 06:10 Dose: 40 mg Polyethylene Glycol (Miralax) 17 gm PO DAILY [facility] Last Admin: 12/26/18 08:28 Dose: 17 gm Sertraline HCl (Zoloft) 100 mg PO DAILY [facility] Last Admin: 12/26/18 08:26 Dose: 100 mg Sodium Chloride (Normal Saline Flush 0.9%) 10 ml IVP PRN PRN PRN Reason: NEEDED PER PROVIDER ORDERS Last Admin: 12/26/18 06:11 Dose: 10 ml Sodium Chloride (Normal Saline Flush 0.9%) 10 ml IVP 0100,0900,1700 [facility] Last Admin: 12/26/18 19:22 Dose: 10 ml Spironolactone (Aldactone) 25 mg PO DAILY [facility] Last Admin: 12/26/18 11:25 Dose: 25 mg Albuterol [Ventolin Hfa] 2 puffs INH Q4H PRN 03/29/13 Fluticasone/Salmeterol [Advair 250-50 Diskus] 1 puffs INH BID 07/21/15 Montelukast [Singulair] 10 mg PO DAILY 09/10/15 Atorvastatin [Lipitor] 10 mg PO QPM 12/23/18 Levothyroxine Sodium [Synthroid] 300 mcg PO QDAC 12/23/18 Lisinopril [Zestril] 10 mg PO DAILY 12/23/18 Sertraline HCl [Zoloft] 100 mg PO DAILY 12/23/18 hydroCHLOROthiazide [Hydrodiuril] 25 mg PO DAILY 12/23/18 Objective - Vital Signs/Intake & Output Reviewed Vital Signs: Yes Vital Signs: Vital Signs x48h Temp Pulse Pulse Pulse Pulse Resp BP 12/26/18 20:02 52 L 18 12/26/18 19:53 36.8 C 52 L 18 133/74 H 12/26/18 16:00 36.3 C L 54 L 20 126/72 12/26/18 14:30 61 12/26/18 14:28 51 L 12/26/18 14:27 52 L 18 123/81 H BP BP Pulse Ox 12/26/18 20:02 12/26/18 19:53 94 12/26/18 16:00 96 12/26/18 14:30 119/84 H 12/26/18 14:28 123/81 H 12/26/18 14:27 97 Intake & Output: Intake & Output 12/23/18 12/24/18 12/25/18 12/26/18 23:59 23:59 23:59 23:59 Intake Total 7296.333 1365 1465 690 Output Total 300 2021 9851 5345 Balance 9226.333 355 -8717 -8242 - Objective General Appearance: positive: No acute distress, Alert Eyes Bilateral: positive: PERRL Eyes: OU Conjunctivae pale ENT: positive: Pharynx nml, Dry mucous membranes Neck: positive: Thyroid nml, No JVD, Trachea midline Respiratory: positive: Chest non-tender, No respiratory distress, Other (diminished bilaterally) Cardiovascular: positive: No gallop, Irregularly irregular, Systolic murmur, Decreased pulse(s) Peripheral Pulses: 1+ Radial (R), 1+ Radial (L) Abdomen: positive: Non-tender, Nml bowel sounds, Other (rounded, soft) Back: positive: Nml inspection Skin: positive: No rash, Warm, Dry, Pallor Extremities: positive: Pedal edema (pitting edema to BLEs, chronic, healing cellulitis- left foot redness), Joint swelling Neurologic/Psychiatric: positive: CN's nml (2-12), Disoriented to time, Weakness, Sensory loss, Slurred/abnml speech, Depressed mood/affect, Other (baseline dementia with poor short term memory) Reflexes: Bicep (R): 3+, Bicep (L): 3+ - Lab Results Fish Bones: 12/27/18 05:48 12/27/18 05:48 Other Labs: Lab Results x24hrs 12/26/18 12/26/18 12/26/18 Range/Units 05:48 05:48 05:48 WBC 9.1 (4.8-10.8) x10^3/uL RBC 3.38 L (4.70-6.10) 10^6/uL Hgb 11.9 L (14.0-18.0) g/dL Hct 34.6 L (42.0-52.0) % MCV 102.5 H (80.0-94.0) fL MCH 35.2 H (27.0-31.0) pg MCHC 34.4 (32.0-36.0) g/dL RDW 14.5 (12.0-15.0) % Plt Count 137 (130-450) 10^3/uL MPV 7.9 (7.4-11.4) fL Neut # (Auto) Not Reportable Lymph # (Auto) Not Reportable Lucas # (Auto) Not Reportable Eos # (Auto) Not Reportable Baso # (Auto) Not Reportable Absolute Nucleated RBC Not Reportable Total Counted 100 Band Neuts % (Manual) 3 (0 - 10) % Abnorm Lymph % (Manual) 0 % Nucleated RBC % Not Reportable Neutrophils # (Manual) 7.2 H (1.5-6.6) 10^3/uL Lymphocytes # (Manual) 1.0 L (1.5-3.5) 10^3/uL Monocytes # (Manual) 0.5 (0.0-1.0) 10^3/uL Eosinophils # (Manual) 0.4 (0-0.7) 10^3/uL Basophils # (Manual) 0.0 (0-0.1) 10^3/uL Differential Comment MANUAL DIFFERENTIAL WBC Morphology NORMAL APPEARANCE (NORMAL) Platelet Estimate NORMAL (130-450,000) (NORMAL) Platelet Morphology NORMAL APPEARANCE (NORMAL) RBC Morph Micro Appear NORMAL APPEARANCE (NORMAL) Sodium 138 (135-145) mmol/L Potassium 3.0 L (3.5-5.0) mmol/L Chloride 100 L (101-111) mmol/L Carbon Dioxide 28 (21-32) mmol/L Anion Gap 10.0 (6-13) BUN 14 (6-20) mg/dL Creatinine 0.9 (0.6-1.2) mg/dL Estimated GFR (MDRD) 81 L (>89) Glucose 98 (70-100) mg/dL Calcium 7.7 L (8.5-10.3) mg/dL Magnesium 1.9 (1.7-2.8) mg/dL B-Natriuretic Peptide 205 H (5-100) pg/mL ABX Reporting Has patient been on IV antibiotics over the past 48 hours?: Yes Sepsis Event Note (H) - Evaluation Current Stage of Sepsis: Resolved - Sepsis Criteria Sepsis Criteria: Metabolic: lactate > 2 mmol/L Assessment/Plan - Problem List (1) Cellulitis of left leg without foot Impression: - Continues to have beefy redness to anterior aspect of left foot, swelling, warmth - Continues on vanco/rocephin IV Plan: Request discharge pictures of wounds, continue treatment given continued redness (2) Acute on chronic combined systolic and diastolic ACC/AHA stage C congestive heart failure Impression: ECHO shows a current EF of 30-35%, which has worsened since his last echo - Also with cor pulmonale - Patient complains of fatigue and weakness - Stop BB, for continued bradycardia - Improved swelling in BLEs Plan: Continue diuretics, Lisinopril, monitor weight (daily) (3) COPD (chronic obstructive pulmonary disease) Impression: - Uses albuterol, advair and nightly Singular at home - Continues on duo-nebs, budesinide, and Singular here - No exacerbations for this stay Plan: Continue meds, resume home meds on discharge Qualifiers: COPD type: unspecified COPD Qualified Code(s): J44.9 - Chronic obstructive pulmonary disease, unspecified (4) CVA (cerebral vascular accident) Impression: - On imaging, a small old cerebral infarct is noted - On exam, patient has poor memory, repeats phrases Plan: Continue to treat illness, monitor for AMS (5) Dementia Impression: - On exam patient exhibits this disease with very poor memory - Poor insight, unrealistic at times with his statements - Worries about his , repeats statements Plan: Monitor for worsening mental status (6) Depression Impression: - Flat affect on exam - Otherwise stable on zoloft (7) Hypothyroidism Impression: - Elevated TSH of 71, low free T3 and T4 - Resumed Synthroid at 300 mcg from home dose Plan: Recheck TSH in ~ 4-5 weeks, continue Synthroid (8) Medical non-compliance Impression: - Reports of refusal of medical care in the past - Evidence of noncompliance with medications due to severely increased TSH - Complicating factor of memory loss/dementia, poor social support at home Plan: Continue to encourage compliance (9) Anxiety Impression: - More apparent at the time of admission with times of combative behaviors - Suspect noncompliance at home, so may not have been taking his Zoloft Plan: Continue Zoloft, continue to treat infection
[2018-12-27] MEDS: SODIUM CHLORIDE FLUSH 0.9% 10 ML SYRINGE IVP SCH ×2 (00:30→09:05)
[2018-12-27] MEDS ORDERED: BENZOCAINE/MENTHOL LOZENGE MM PRN (05:20)
[2018-12-27 05:58] LABS: BASOPHILS # (AUTO) 0.1 10^3/uL (0.0-0.1); BASOPHILS % (AUTO) 0.6 %; EOSINOPHILS # (AUTO) 0.2 10^3/uL (0.0-0.7); EOSINOPHILS % (AUTO) 2.9 %; LYMPHOCYTES # (AUTO) 0.9 10^3/uL (1.5-3.5); LYMPHOCYTES % (AUTO) 11.3 %; MEAN CORPUSCULAR HEMOGLOBIN 34.3 pg (27.0-31.0); MEAN CORPUSCULAR HGB CONC 32.8 g/dL (32.0-36.0); MEAN CORPUSCULAR VOLUME 104.6 fL (80.0-94.0); MEAN PLATELET VOLUME 9.9 fL (7.4-11.4); MONOCYTES # (AUTO) 0.5 10^3/uL (0.0-1.0); MONOCYTES % (AUTO) 5.8 %; NEUTROPHILS # (AUTO) 6.1 10^3/uL (1.5-6.6); NEUTROPHILS % (AUTO) 75.2 %; PLT - PLATELET COUNT 146 10^3/uL (130-450); RED CELL DISTRIBUTION WIDTH 14.6 % (12.0-15.0); WHITE BLOOD COUNT 8.1 x10^3/uL (4.8-10.8)
[2018-12-27 06:07] LABS: CREATININE 0.9 mg/dL (0.6-1.2)
[2018-12-27] MEDS: LEVOTHYROXINE 100 MCG TABLET PO SCH (06:16)
[2018-12-27] MEDS: PANTOPRAZOLE 40 MG TABLET PO SCH (06:16)
[2018-12-27] MEDS ORDERED: POTASSIUM CHLORIDE 20 MEQ TABLET PO ONE ×2 (06:20)
[2018-12-27] MEDS: FORMOTEROL FUMARATE NEB 20 MCG/2 ML INH SCH (07:27)
[2018-12-27] MEDS: BUDESONIDE 0.5 MG/2 ML NEB INH SCH (07:29)
[2018-12-27] MEDS: LISINOPRIL 5 MG TABLET PO SCH (08:55)
[2018-12-27] MEDS: SPIRONOLACTONE 25 MG TABLET PO SCH (08:56)
[2018-12-27] MEDS: POLYETHYLENE GLYCOL 3350 17 GM PACKET PO SCH (08:57)
[2018-12-27] MEDS: SERTRALINE 50 MG TABLET PO SCH (08:57)
[2018-12-27] MEDS ORDERED: FUROSEMIDE 20 MG TABLET PO SCH (09:00)
[2018-12-27] MEDS: HEPARIN 5,000 UNIT/ML VIAL SUBQ SCH (09:00)
[2018-12-27] MEDS: cefTRIAXone 2 GM in SODIUM CHLORIDE 0.9% MINIBAG 100 ML IV SCH (09:06)
--- NOTE | 2018-12-27 11:40 | Discharge Plan ---
"Discharge Plan for SNF / [facility] - Discharge Plan And Transition Orders Disposition: 03 SNF DC/Xfer Condition: Good Allergies and Adverse Reactions: Allergies Allergy/AdvReac Type Severity Reaction Status Date / Time amoxicillin [Amoxicillin] Allergy Unknown Rash Verified 03/30/13 09:06 - SNF / CARE HOME Transition Orders Admit to (Facility): [facility] Under the care of (Name): Carmela Shook Discharge Diagnosis: Cellulitis of left leg without foot- new on this admission, now nearly resolved, continue on antibiotics for 5 more days Acute on chronic combined systolic and diastolic ACC/AHA stage C congestive heart failure- Continue spironolactone, lasix and TAMAR inhibitor, patient did not tolerate BB due to bradycardia for worsening EF of 40-45% COPD (chronic obstructive pulmonary disease)- no exacerbation during this stay, continue on home inhalers CVA (cerebral vascular accident)- No new episodes on this admission, residual deficits of memory impairment, and personality changes Dementia- Stable, chronic Depression- Continue Zoloft, stable Hypothyroidism- TSH was elevated at 71, low free T3 and T4, resumed home dose of Synthroid, possibly due to noncompliance Medical non-compliance- ongoing, SNF may improve compliance with maintenance medications Anxiety- no issues, stable Weight on admission and: Weekly Medication Orders: PLEASE REFER TO THE DISCHARGE MEDICATION LIST. Insulin Orders?: No - Medications New Prescriptions: Clindamycin HCl [Clindamycin 300MG CAP] 300 mg PO Q6H #20 capsule Furosemide [Lasix] 20 mg PO DAILY #30 tablet Levothyroxine Sodium [Synthroid] 300 mcg PO QDAC #90 tablet Lisinopril [Zestril] 2.5 mg PO DAILY #15 tablet Montelukast [Singulair] 10 mg PO DAILY #30 tablet Saccharomyces Boulardii [Florastor] 250 mg PO BID #60 capsule Sertraline HCl [Zoloft] 100 mg PO DAILY #30 tablet Spironolactone [Aldactone] 25 mg PO DAILY #30 tablet - Diet Type: Geriatric Texture: Regular Liquids: Thin May have monthly special meal: Yes - Therapies | Activity Therapy: Evaluation | Treat if indicated: PT, OT Rehabilitation Potential: Maximize functional status, Return to independent living Activity: Activity as Tolerated Weight Bearing: Full Weight Assistance Devices: Walker Additional Instructions: Keep your left leg elevated as much the time as possible. Take cephalexin 4 times daily as prescribed. Follow-up with your primary physician within one 1 week. Call to schedule an appointment. Return to the emergency department if you develop increasing redness, swelling, or pain in your leg, fever with shaking chills, shortness of breath, or otherwise worsening symptoms. You have been advised to let us continue to treat you with IV antibiotics as an inpatient but have refused our care at this time. You are welcome to return at any time should you change your mind."
[2018-12-27 12:25] VITALS: BP 127/72
--- NOTE | 2018-12-27 13:05 | DISCHARGE SUMMARY ---
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 heart failure- Continue spironolactone, lasix and TAMAR inhibitor, patient did not tolerate BB due to bradycardia for worsening EF of 40-45% COPD (chronic obstructive pulmonary disease)- no exacerbation during this stay, continue on home inhalers CVA (cerebral vascular accident)- No new episodes on this admission, residual deficits of memory impairment, and personality changes Dementia- Stable, chronic Depression- Continue Zoloft, stable Hypothyroidism- TSH was elevated at 71, low free T3 and T4, resumed home dose of Synthroid, possibly due to noncompliance Medical non-compliance- ongoing, SNF may improve compliance with maintenance medications Anxiety- no issues, stable - HPI History of Present Illness: HPI per Dr. Fajardo: Patient seen on 12/22/18 at 2015pm The account below is obtained from the HPI of the ED H&P because the patient is not cooperative and refuses to provide any history. He can tell me his name, his date of and his current location. However, he would not tell me why and how he presented to the ED. He keep insisting that he wants to go. However he is unstable on his feet. His is not at bedside because she got very frustrated with his behavior and opposition to care, so she left. Upon presenting to bedside, he was standing but appeared unsteady on his legs. There were two staff members trying to guide him to sit in bed. I explained our concern about him having an infection and possibly getting se ptic if he was not treated. He keeps repeating that he does not want to stay but would not give a reason why. I informed him that I was concern that he was not thinking at a rational baseline and that we will have to restraint him on that account if he continued to resist care, thus giving him the opportunity to give his perspective. He did not. He keep repeating his mantra about not wanting to stay. I deemed him unable to make appropriate decisions for himself at the moment and admitted him. "The patient is an 78-year-old male with history of sleep apnea, COPD, chronic pedal edema, hypothyroidism, and hypertension, who presents via ambulance with new onset weakness. He has been sitting up in the recliner to sleep at night, and this morning was too weak to get out of his recliner. His states that 2 days ago he was able to drive his car. Yesterday he was able to stand and walk, but was not able to drive. This morning he was unable to stand up from his recliner. His provides most of the history because the patient seems to have either difficulty or no willingness to speak. He becomes grumpy with me when I ask questions, but did eventually demonstrate ability to verbalize his thoughts. He denies chest pain, abdominal pain, nausea or vomiting. He denies dysuria, but urinated on himself this morning when unable to stand up from the recliner." - HOSPITAL COURSE Hospital Course: The patient had a resolution of his admitting lower extremity cellulitis using IV vancomycin and Rocephin that was changed to Ampicillin to be continued at rehab. Physical therapy recommended rehab, and at first the patient was reluctant, but later agreeable after consulting his with social work. He also had issues with medical noncompliance at home in which his heart failure was not treated, now with a lower EF at 35%, AND his TSH was very high at 71. His medications were resumed, and are recommended to continued at the rehab facility and after discharge from there. The patient was medically stable and discharged to [facility] to undergo further rehab with the hopes in returning home with his . His initial combative behaviors leveled out and resolved as we began to treat his infection. - ALLERGIES Allergies/Adverse Reactions: Allergies Allergy/AdvReac Type Severity Reaction Status Date / Time amoxicillin [Amoxicillin] Allergy Unknown Rash Verified 03/30/13 09:06 - MEDICATIONS Home Medications: Ambulatory Orders Medication Instructions Recorded Confirmed Albuterol [Ventolin Hfa] 2 puffs INH Q4H PRN 03/29/13 12/23/18 Fluticasone/Salmeterol [Advair 1 puffs INH BID 07/21/15 12/23/18 250-50 Diskus] Atorvastatin [Lipitor] 10 mg PO QPM 12/23/18 12/23/18 Clindamycin HCl [Clindamycin 300MG 300 mg PO Q6H #20 capsule 12/27/18 CAP] Furosemide [Lasix] 20 mg PO DAILY #30 tablet 12/27/18 Levothyroxine Sodium [Synthroid] 300 mcg PO QDAC #90 tablet 12/27/18 Lisinopril [Zestril] 2.5 mg PO DAILY #15 tablet 12/27/18 Montelukast [Singulair] 10 mg PO DAILY #30 tablet 12/27/18 Saccharomyces Boulardii [Florastor] 250 mg PO BID #60 capsule 12/27/18 Sertraline HCl [Zoloft] 100 mg PO DAILY #30 tablet 12/27/18 Spironolactone [Aldactone] 25 mg PO DAILY #30 tablet 12/27/18 - PHYSICAL EXAM AT DISCHARGE General Appearance: positive: No acute distress, Alert Eyes Bilateral: positive: PERRL ENT: positive: Pharynx nml, No signs of dehydration Neck: positive: Thyroid nml, No JVD, Trachea midline Respiratory: positive: Chest non-tender, No respiratory distress, Other (diminished, bilaterally) Cardiovascular: positive: No gallop, Irregularly irregular, Systolic murmur, Decreased pulse(s) Peripheral Pulses: positive: 1+ Abdomen: positive: Non-tender, Nml bowel sounds, Hepatomegaly, Other (rounded, soft) Back: positive: Nml inspection Skin: positive: No rash, Warm, Dry, Pallor Extremities: positive: Non-tender, Pedal edema (chronic BLE, chronic wounds due to vascular disease), Joint swelling Neurologic/Psychiatric: positive: Disoriented to place, Disoriented to time, Weakness, Sensory loss, Slurred/abnml speech, Depressed mood/affect, Other (baseline dementia) Reflexes: Bicep (R): 3+, Bicep (L): 3+ - LABS Result Diagrams: 12/27/18 05:48 12/27/18 05:48 - SEPSIS Current Stage of Sepsis: Resolved Possible source of Sepsis: Genitourinary, Skin/soft tissue Sepsis Criteria: Metabolic: lactate > 2 mmol/L - FOLLOW UP Follow Up: Follow up with PCP after discharge from SNF - TIME SPENT Time Spent in Discharge (Minutes): 50
== END 2018-12-27 14:59 | DRG 871 ==
LOC: EDUNIT# → ED 10:38 → MS2 20:27
PROVIDERS: ADMIT Internal Medicine; ATTEND Nurse Practitioner
DX: A41.9 Sepsis, unspecified organism (principal); R53.1 Weakness; R41.0 Disorientation, unspecified; I50.43 Acute on chronic combined systolic (congestive) and diastolic (congestive) heart failure; L03.116 Cellulitis of left lower limb; N17.9 Acute kidney failure, unspecified; I11.0 Hypertensive heart disease with heart failure; J44.9 Chronic obstructive pulmonary disease, unspecified; I69.311 Memory deficit following cerebral infarction; I10 Essential (primary) hypertension; I48.91 Unspecified atrial fibrillation; I69.398 Other sequelae of cerebral infarction; Z91.19 Patient's noncompliance with other medical treatment and regimen; F07.0 Personality change due to known physiological condition; F03.90 Unspecified dementia, unspecified severity, without behavioral disturbance, psychotic disturbance, mood disturbance, and anxiety; F32.9 Major depressive disorder, single episode, unspecified; E03.9 Hypothyroidism, unspecified; T38.1X6A Underdosing of thyroid hormones and substitutes, initial encounter; F41.9 Anxiety disorder, unspecified; G47.30 Sleep apnea, unspecified; I73.9 Peripheral vascular disease, unspecified; S80.812A Abrasion, left lower leg, initial encounter; S80.811A Abrasion, right lower leg, initial encounter; X58.XXXA Exposure to other specified factors, initial encounter; E86.0 Dehydration; I27.81 Cor pulmonale (chronic); R00.1 Bradycardia, unspecified; T44.7X5A Adverse effect of beta-adrenoreceptor antagonists, initial encounter; Y92.230 Patient room in hospital as the place of occurrence of the external cause; Z91.128 Patient's intentional underdosing of medication regimen for other reason; Y92.009 Unspecified place in unspecified non-institutional (private) residence as the place of occurrence of the external cause; Z86.718 Personal history of other venous thrombosis and embolism; Z87.891 Personal history of nicotine dependence; Z79.899 Other long term (current) drug therapy; Z79.51 Long term (current) use of inhaled steroids; Z86.79 Personal history of other diseases of the circulatory system
CPT/HCPCS: 36415; 70450; 71045; 80048; 80053; 80202; 81001; 83605; 83690; 83735; 83880; 84439; 84443; 84481; 84484; 85025; 87040; 93005; 93306; 93970; 94640; 96361; 96365; 96372; 97116; 97161; 97166; 97530; 99284; 99285; A9270; J3370; J7626; 81003; 87086

== ENCOUNTER 2019-02-03 | Outpatient (CLI) | payer MEDICARE, OTHER | END 2019-02-03 23:59 | disposition home or self-care (01) | DX: I50.9 Heart failure, unspecified (principal); R68.89 Other general symptoms and signs; R73.09 Other abnormal glucose | CPT/HCPCS: 80048; 83036; 85025 ==

== ENCOUNTER 2019-02-27 08:00 | Outpatient (CLI) | payer MEDICARE, OTHER ==
[2019-02-27 18:27] LABS: BASOPHILS % (AUTO) 0.6 %; EOSINOPHILS # (AUTO) 0.1 10^3/uL (0.0-0.7); EOSINOPHILS % (AUTO) 1.8 %; HGB - HEMOGLOBIN 11.9 g/dL (14.0-18.0); LYMPHOCYTES # (AUTO) 1.2 10^3/uL (1.5-3.5); LYMPHOCYTES % (AUTO) 17.3 %; MEAN CORPUSCULAR HEMOGLOBIN 32.4 pg (27.0-31.0); MEAN CORPUSCULAR HGB CONC 31.6 g/dL (32.0-36.0); MEAN CORPUSCULAR VOLUME 102.7 fL (80.0-94.0); MEAN PLATELET VOLUME 10.9 fL (7.4-11.4); MONOCYTES # (AUTO) 0.5 10^3/uL (0.0-1.0); MONOCYTES % (AUTO) 7.4 %; NEUTROPHILS # (AUTO) 5.2 10^3/uL (1.5-6.6); NEUTROPHILS % (AUTO) 72.3 %; PLT - PLATELET COUNT 250 10^3/uL (130-450); RED BLOOD COUNT 3.67 10^6/uL (4.70-6.10); RED CELL DISTRIBUTION WIDTH 14.8 % (12.0-15.0); WHITE BLOOD COUNT 7.1 x10^3/uL (4.8-10.8)
[2019-02-27 18:28] LABS: CREATININE 0.7 mg/dL (0.6-1.2)
== END 2019-02-27 23:59 | disposition home or self-care (01) ==
LOC: LAB.R 08:00
DX: I10 Essential (primary) hypertension (principal); D72.829 Elevated white blood cell count, unspecified; R62.7 Adult failure to thrive; A04.72 Enterocolitis due to Clostridium difficile, not specified as recurrent
CPT/HCPCS: 80048; 85025

== ENCOUNTER 2019-03-13 08:00 | Outpatient (CLI) | payer MEDICARE, OTHER | END 2019-03-13 23:59 | LOC: LAB.R 08:00 | PROVIDERS: ATTEND Family Medicine | DX: A04.72 Enterocolitis due to Clostridium difficile, not specified as recurrent (principal) | CPT/HCPCS: 87493 ==

== ENCOUNTER 2019-03-14 08:00 | Outpatient (CLI) | payer MEDICARE, OTHER ==
[2019-03-14 08:13] LABS: THYROID STIMULATING HORMONE 0.21 uIU/mL (0.34-5.60)
== END 2019-03-14 23:59 ==
LOC: LAB.R 08:00
DX: E03.9 Hypothyroidism, unspecified (principal); I34.1 Nonrheumatic mitral (valve) prolapse; D51.9 Vitamin B12 deficiency anemia, unspecified
CPT/HCPCS: 82607; 84134; 84443

== ENCOUNTER 2019-03-20 08:00 | Outpatient (CLI) | payer MEDICARE, OTHER ==
[2019-03-20 21:21] LABS: BASOPHILS # (AUTO) 0.1 10^3/uL (0.0-0.1); BASOPHILS % (AUTO) 0.7 %; EOSINOPHILS # (AUTO) 0.4 10^3/uL (0.0-0.7); EOSINOPHILS % (AUTO) 4.9 %; HGB - HEMOGLOBIN 11.1 g/dL (14.0-18.0); LYMPHOCYTES # (AUTO) 1.1 10^3/uL (1.5-3.5); LYMPHOCYTES % (AUTO) 15.1 %; MEAN CORPUSCULAR HEMOGLOBIN 32.3 pg (27.0-31.0); MEAN CORPUSCULAR HGB CONC 32.5 g/dL (32.0-36.0); MEAN CORPUSCULAR VOLUME 99.4 fL (80.0-94.0); MEAN PLATELET VOLUME 9.2 fL (7.4-11.4); MONOCYTES # (AUTO) 0.6 10^3/uL (0.0-1.0); MONOCYTES % (AUTO) 8.4 %; NEUTROPHILS # (AUTO) 5.3 10^3/uL (1.5-6.6); NEUTROPHILS % (AUTO) 69.7 %; PLT - PLATELET COUNT 248 10^3/uL (130-450); RED BLOOD COUNT 3.44 10^6/uL (4.70-6.10); RED CELL DISTRIBUTION WIDTH 15.1 % (12.0-15.0); WHITE BLOOD COUNT 7.5 x10^3/uL (4.8-10.8)
[2019-03-20 21:30] LABS: ALBUMIN 2.9 g/dL (3.2-5.5); ALBUMIN/GLOBULIN RATIO 0.8 (1.0-2.2); BILIRUBIN,TOTAL 0.5 mg/dL (0.2-1.0); CALCIUM 8.3 mg/dL (8.5-10.3); CREATININE 0.6 mg/dL (0.6-1.2); TOTAL PROTEIN 6.7 g/dL (6.7-8.2)
== END 2019-03-20 23:59 | disposition home or self-care (01) ==
LOC: LAB.R 08:00
DX: I10 Essential (primary) hypertension (principal); D64.9 Anemia, unspecified
CPT/HCPCS: 80053; 85025

== ENCOUNTER 2019-04-14 15:32 | Outpatient (CLI) | payer MEDICARE, OTHER | END 2019-04-14 15:33 | disposition critical access hospital (66) | LOC: EMS 15:32 | PROVIDERS: ATTEND Surgery | DX: M79.89 Other specified soft tissue disorders (principal); R53.1 Weakness | CPT/HCPCS: A0425; A0429 ==

== ENCOUNTER 2019-04-14 15:54 | Emergency (ER) | payer MEDICARE, OTHER ==
--- NOTE | 2019-04-14 15:56 | ED Physician Documentation ---
History of Present Illness - Stated complaint Stated Complaint: CELLULITIS R LEG - Additonal information Additional information: This is an 78-year-old male with a history of past RLE DVT (completed treatment with warfarin, no longer on anticoagulation), atrial fibrillation and ce llulitis, who presents due to redness and concern for infection of his right leg. Patient reportedly lives at home with his , he was recently hospitalized for cellulitis and discharged to [facility], and returned home 2 weeks ago. He has had difficulty walking over the last day because of some pain in his right leg, and he has some redness in the area. His was concerned because he was unable to ambulate to the bathroom so EMS was called to bring him here for evaluation. He denies fever. He did not want to come to the hospital, and states that he refuses to go to any facility from here. Review of Systems Constitutional: denies: Fever Cardiac: denies: Chest pain / pressure Respiratory: reports: Cough. denies: Dyspnea GI: denies: Abdominal Pain : denies: Dysuria Skin: reports: Lesions Musculoskeletal: reports: Extremity swelling Neurologic: denies: Focal weakness PD PAST MEDICAL HISTORY - Past Medical History Cardiovascular: Hypertension, Deep vein thrombosis, Atrial fibrillation Respiratory: Asthma Endocrine/Autoimmune: HyPOthyroidism GI: Ulcers : None HEENT: None Psych: Depression, Claustrophobia Musculoskeletal: Osteoarthritis, Fatigue Derm: None - Past Surgical History Past Surgical History: Yes HEENT: Cataracts - Present Medications Home Medications: Ambulatory Orders Medication Instructions Recorded Confirmed Albuterol [Ventolin Hfa] 2 puffs INH Q4H PRN 03/29/13 12/23/18 Fluticasone/Salmeterol [Advair 1 puffs INH BID 07/21/15 12/23/18 250-50 Diskus] Atorvastatin [Lipitor] 10 mg PO QPM 12/23/18 12/23/18 Clindamycin HCl [Clindamycin 300MG 300 mg PO Q6H #20 capsule 12/27/18 CAP] Furosemide [Lasix] 20 mg PO DAILY #30 tablet 12/27/18 Levothyroxine Sodium [Synthroid] 300 mcg PO QDAC #90 tablet 12/27/18 Lisinopril [Zestril] 2.5 mg PO DAILY #15 tablet 12/27/18 Montelukast [Singulair] 10 mg PO DAILY #30 tablet 12/27/18 Saccharomyces Boulardii [Florastor] 250 mg PO BID #60 capsule 12/27/18 Sertraline HCl [Zoloft] 100 mg PO DAILY #30 tablet 12/27/18 Spironolactone [Aldactone] 25 mg PO DAILY #30 tablet 12/27/18 Apixaban [Eliquis] 5 mg PO BID #60 tablet 04/14/19 Cefdinir 300 mg PO BID #14 capsule 04/14/19 - Allergies Allergies/Adverse Reactions: Allergies Allergy/AdvReac Type Severity Reaction Status Date / Time amoxicillin [Amoxicillin] Allergy Unknown Rash Verified 03/30/13 09:06 - Living Situation Living Arrangement: reports: At home - Social History Does the pt smoke?: No Smoking Status: Never smoker Does the pt drink ETOH?: No Does the pt have substance abuse?: No - Immunizations Immunizations are current?: Yes - POLST Patient has POLST: No POLST Status: Full Code (until verified with spouse) PD ED PE NORMAL - Vitals Vital signs reviewed: Yes - General General: No acute distress, Other (Disoriented to date, knows general location and event) - HEENT HEENT: Atraumatic, PERRL - Neck Neck: Supple, no meningeal sign - Cardiac Cardiac: RRR - Respiratory Respiratory: No respiratory distress - Abdomen Abdomen: Normal bowel sounds, Soft, Non tender - Derm Derm: Warm and dry - Extremities Extremities: Other (RLE is edematous. Excoriations to RLE, 0.5cm - 1cm, Several of them have around 0.5 to 1 cm surrounding erythema. No purulence, no blistering or bulla.) - Neuro Neuro: No motor deficit, No sensory deficit, Other (Alert, able to converse but has some memory impairment and disorientation to time/date. Patient is able to ambulate independently short distances ~20 ft with a steady gait. Normal strength in bilateral LE.) Results - Vitals Vitals: Vital Signs - 24 hr 04/14/19 04/14/19 16:02 19:14 Temperature 36.7 C Heart Rate 93 86 Respiratory 18 18 Rate Blood Pressure 157/68 H 108/59 L O2 Saturation 99 94 Oxygen O2 Source [] Nasal cannula O2 Source Room air - Labs Labs: Microbiology 04/14/19 17:20 Urine Culture - Preliminary Urine,Clean Catch Escherichia Coli Laboratory Tests 04/14/19 04/14/19 04/14/19 16:15 16:15 16:15 WBC 13.2 H RBC 3.74 L Hgb 12.4 L Hct 37.9 L MCV 101.3 H MCH 33.2 H MCHC 32.7 RDW 15.7 H Plt Count 217 MPV 9.5 Neut # (Auto) 11.3 H Lymph # (Auto) 0.6 L [place] # (Auto) 1.1 H Eos # (Auto) 0.0 Baso # (Auto) 0.1 Absolute Nucleated RBC 0.00 Nucleated RBC % 0.0 PT 17.3 H INR 1.6 H Sodium 139 Potassium 4.4 Chloride 101 Carbon Dioxide 26 Anion Gap 12.0 BUN 29 H Creatinine 1.0 Estimated GFR (MDRD) 72 L Glucose 103 H Calcium 9.1 Total Bilirubin 1.4 H AST 22 ALT 18 Alkaline Phosphatase 107 Total Protein 8.0 Albumin 3.5 Globulin 4.5 H Albumin/Globulin Ratio 0.8 L Lipase 43 Urine Color Urine Clarity Urine pH Ur Specific [place] Urine Protein Urine Glucose (UA) Urine Ketones Urine Occult Blood Urine Nitrite Urine Bilirubin Urine Urobilinogen Ur Leukocyte Esterase Urine RBC Urine WBC Ur Squamous Epith Cells Urine Bacteria Ur Microscopic Review Urine Culture Comments 04/14/19 17:20 WBC RBC Hgb Hct MCV MCH MCHC RDW Plt Count MPV Neut # (Auto) Lymph # (Auto) [place] # (Auto) Eos # (Auto) Baso # (Auto) Absolute Nucleated RBC Nucleated RBC % PT INR Sodium Potassium Chloride Carbon Dioxide Anion Gap BUN Creatinine Estimated GFR (MDRD) Glucose Calcium Total Bilirubin AST ALT Alkaline Phosphatase Total Protein Albumin Globulin Albumin/Globulin Ratio Lipase Urine Color YELLOW Urine Clarity CLOUDY Urine pH 5.5 Ur Specific [place] 1.010 Urine Protein 30 H Urine Glucose (UA) NEGATIVE Urine Ketones NEGATIVE Urine Occult Blood MODERATE H Urine Nitrite POSITIVE H Urine Bilirubin NEGATIVE Urine Urobilinogen 0.2 (NORMAL) Ur Leukocyte Esterase MODERATE H Urine RBC TNTC H Urine WBC >25 H Ur Squamous Epith Cells NONE SEEN Urine Bacteria Many H Ur Microscopic Review INDICATED Urine Culture Comments INDICATED - Rads (name of study) DVT RLE US Radiology: Other (non-occlusive thrombus in the right superficial femoral) PD MEDICAL DECISION MAKING - ED course Complexity details: considered differential (DVT, cellulitis, UTI, excoriations) ED course: On exam patient has an edematous RLE, there are signs of mild cellulitis around excoriations, though this is quite localized. His strength is normal and symmetric in his LE. DVT study shows thrombus in the superficial femoral vein. Given his history of DVT he is at high risk for propogation I recommended starting Eliquis and follow up with his PCP to further discuss the risks and benefits of continuing anticoagulation. He may benefit from repeat US. His labs reveal a leukocytosis and a urinary tract infection. Given his multiple medical problems I recommended admission to the hospital. Patient completely refused. He has dementia and some memory impairment, however I do feel he has capacity, as he is able to repeat to me my concerns, and explain his reasons for refusing admission (he is worried about long-term placement in a SNF, and wants to retain his independence at home). I had an in-depth discussion with patient's . She feels comfortable taking care of him at home and is okay with discharge in accordance to his wishes given that he has been able to ambulate to the bathroom here. Talking with patient and his , I explained that if he has any worsening, inability to ambulate, fever, or if either of them have concerns and would like him to be re-evaluated they should return to the ED. His has mobility issues and if she feels she is unable to care for him she will call 911. I again discussed my recommendations for admission, patient again completely refuses. He was given a first dose of Eliquis here and a prescription. He was also given a first dose of antibiotics for his UTI, which will also cover cellulitis. A prescription for cefdinir also provided. Patient was discharged in the care of his . Departure - Departure Disposition: Home, Self Care Clinical Impression: DVT (deep venous thrombosis) Qualifiers: DVT location: lower extremity Affected thrombotic vein of extremity: u nspecified lower extremity distal vein Chronicity: unspecified Laterality: right Qualified Code(s): I82.4Z1 - Acute embolism and thrombosis of unspecified deep veins of right distal lower extremity UTI (urinary tract infection) Qualifiers: Urinary tract infection type: acute cystitis Hematuria presence: without hematuria Qualified Code(s): N30.00 - Acute cystitis without hematuria Condition: Fair Instructions: ED DVT, ED UTI Cystitis Male Prescriptions: Apixaban [Eliquis] 5 mg PO BID #60 tablet Cefdinir 300 mg PO BID #14 capsule Comments: You appear to have a blood clot in your leg. Please take the blood thinner as prescribed and see your regular doctor as soon as possible to discuss the duration of treatment of the blood thinner. You also have a urinary tract infection. Take the antibiotic as prescribed. Ideally I would like you to stay in the hospital for treatment. If you develop any worsening or decide you want to come back and be admitted, please return the emergency department anytime. Discharge Date/Time: 04/14/19 21:15
[2019-04-14 16:23] LABS: BASOPHILS # (AUTO) 0.1 10^3/uL (0.0-0.1); BASOPHILS % (AUTO) 0.4 %; EOSINOPHILS % (AUTO) 0.1 %; HGB - HEMOGLOBIN 12.4 g/dL (14.0-18.0); LYMPHOCYTES # (AUTO) 0.6 10^3/uL (1.5-3.5); LYMPHOCYTES % (AUTO) 4.3 %; MEAN CORPUSCULAR HEMOGLOBIN 33.2 pg (27.0-31.0); MEAN CORPUSCULAR HGB CONC 32.7 g/dL (32.0-36.0); MEAN CORPUSCULAR VOLUME 101.3 fL (80.0-94.0); MEAN PLATELET VOLUME 9.5 fL (7.4-11.4); MONOCYTES # (AUTO) 1.1 10^3/uL (0.0-1.0); MONOCYTES % (AUTO) 8.4 %; NEUTROPHILS # (AUTO) 11.3 10^3/uL (1.5-6.6); PLT - PLATELET COUNT 217 10^3/uL (130-450); RED BLOOD COUNT 3.74 10^6/uL (4.70-6.10); RED CELL DISTRIBUTION WIDTH 15.7 % (12.0-15.0); WHITE BLOOD COUNT 13.2 x10^3/uL (4.8-10.8)
[2019-04-14 16:36] LABS: ALBUMIN 3.5 g/dL (3.2-5.5); ALBUMIN/GLOBULIN RATIO 0.8 (1.0-2.2); BILIRUBIN,TOTAL 1.4 mg/dL (0.2-1.0); CALCIUM 9.1 mg/dL (8.5-10.3)
[2019-04-14 16:42] LABS: INR 1.6 (0.8-1.2); PT - PROTHROMBIN TIME 17.3 secs (9.9-12.6)
[2019-04-14 17:31] LABS: BILIRUBIN,URINE NEGATIVE (NEGATIVE); GLUCOSE, URINE (UA) NEGATIVE (NEGATIVE); KETONES,URINE (UA) NEGATIVE (NEGATIVE); LEUKOCYTE ESTERASE, URINE MODERATE (NEGATIVE); NITRITE,URINE POSITIVE (NEGATIVE); OCCULT BLOOD,URINE MODERATE (NEGATIVE); PH,URINE 5.5 PH (5.0-7.5); PROTEIN,URINE 30 mg/dL (NEGATIVE); UROBILINOGEN,URINE 0.2 (NORMAL) E.U./dL (NORMAL)
[2019-04-14 17:34] LABS: CLARITY,URINE CLOUDY (CLEAR)
[2019-04-14 17:38] LABS: BACTERIA,URINE Many /HPF (None Seen); RBC,URINE TNTC /HPF (0-5); SQUAMOUS EPITHELIAL CELL,UR NONE SEEN (<= Few)
--- NOTE | 2019-04-14 18:52 | Ultrasound Report ---
Reason: RLE edema Procedure Date: 04/14/2019 Accession Number: [id number] / [id number] Procedure: US - Duplex Ext Veins Right CPT Code: FULL RESULT: EXAM: RIGHT LOWER EXTREMITY VENOUS ULTRASOUND EXAM DATE: 04/14/2019 05:43 PM. CLINICAL HISTORY: RLE edema. COMPARISON: DUPLEX EXT VEINS RIGHT 03/04/2016 8:24 PM DUPLEX EXT VEINS BILATERAL 12/23/2018 3:32 PM. TECHNIQUE: Real-time sonographic vascular imaging was performed by the animal care giver through the lower extremity utilizing both color-flow and Doppler spectral analysis. Multiple branch service representative static images were saved for review. FINDINGS: Study is limited secondary to difficulty with positioning and patient intolerance of lower extremity compression. The right common femoral vein is patent. There is questionable partially occlusive thrombus within the right superficial vein. The popliteal artery was not well seen. Limited assessment of the posterior tibial and peroneal veins. Other: None. IMPRESSION: Limited examination secondary to difficulty with positioning and patient intolerance of lower extremity compression. The popliteal, posterior tibial, and peroneal veins were not well seen. There is no evidence of thrombus within the common femoral vein. There is questionable nonocclusive thrombus within the right superficial femoral vein. There is edema within the subcutaneous tissues of the calf. RADIA
[2019-04-14 19:14] VITALS: BP 108/59
[2019-04-14] MEDS ORDERED: cephALEXin 250 MG CAPSULE PO STA (20:46)
[2019-04-14] MEDS ORDERED: APIXABAN 5 MG TABLET PO STA (20:47)
[2019-04-14] MEDS ORDERED: APIXABAN 5 MG TABLET PO ONE (21:11)
== END 2019-04-14 21:15 | disposition home or self-care (01) ==
LOC: EDUNIT# → ED 15:54
DX: I82.811 Embolism and thrombosis of superficial veins of right lower extremity (principal); L03.115 Cellulitis of right lower limb; N30.00 Acute cystitis without hematuria; Z86.718 Personal history of other venous thrombosis and embolism; I10 Essential (primary) hypertension; F03.90 Unspecified dementia, unspecified severity, without behavioral disturbance, psychotic disturbance, mood disturbance, and anxiety
CPT/HCPCS: 36415; 80053; 81001; 83690; 85025; 85610; 87086; 87181; 93971; 99283; 99284; A9270; 81003

== ENCOUNTER 2019-04-15 17:01 | Outpatient (CLI) | payer MEDICARE, OTHER | END 2019-04-15 17:02 | disposition critical access hospital (66) | LOC: EMS 17:01 | PROVIDERS: ATTEND Surgery | DX: R53.1 Weakness (principal); R32 Unspecified urinary incontinence; R45.1 Restlessness and agitation | CPT/HCPCS: A0425; A0429 ==

== ENCOUNTER 2019-04-15 17:19 | Inpatient (IN) | payer MEDICARE, OTHER ==
--- NOTE | 2019-04-15 17:57 | ED Physician Documentation ---
History of Present Illness - Stated complaint Stated Complaint: WEAKNESS - Chief complaint Chief Complaint: General - History obtained from History obtained from: Patient, Family - Additonal information Additional information: This is an 78-year-old man who was seen here last night diagnosed with urinary tract infection and refused admission. Apparently his has been in the able to get him up and ambulating and he is been doing erratic things at home. The patient himself is extremely confrontational and will not answer any questions for me he is very agitated and keeps clenching his fists and snorkeling at me. He says he has not been nauseous or had shortness of breath but does admit to a cough due to his asthma. He does not know if he has fever, denies pain and does not know what treatment was provided for him in the emergency department last night. Review of Systems Unable to obtain: Dementia Respiratory: reports: Cough. denies: Dyspnea GI: denies: Nausea PD PAST MEDICAL HISTORY - Past Medical History Cardiovascular: Hypertension, Deep vein thrombosis, Atrial fibrillation Respiratory: Asthma Endocrine/Autoimmune: HyPOthyroidism GI: Ulcers : None HEENT: None Psych: Depression, Claustrophobia Musculoskeletal: Osteoarthritis, Fatigue Derm: None - Past Surgical History Past Surgical History: Yes HEENT: Cataracts - Present Medications Home Medications: Ambulatory Orders Medication Instructions Recorded Confirmed Albuterol [Ventolin Hfa] 2 puffs INH Q4H PRN 03/29/13 12/23/18 Fluticasone/Salmeterol [Advair 1 puffs INH BID 07/21/15 12/23/18 250-50 Diskus] Atorvastatin [Lipitor] 10 mg PO QPM 12/23/18 12/23/18 Clindamycin HCl [Clindamycin 300MG 300 mg PO Q6H #20 capsule 12/27/18 CAP] Furosemide [Lasix] 20 mg PO DAILY #30 tablet 12/27/18 Levothyroxine Sodium [Synthroid] 300 mcg PO QDAC #90 tablet 12/27/18 Lisinopril [Zestril] 2.5 mg PO DAILY #15 tablet 12/27/18 Montelukast [Singulair] 10 mg PO DAILY #30 tablet 12/27/18 Saccharomyces Boulardii [Florastor] 250 mg PO BID #60 capsule 12/27/18 Sertraline HCl [Zoloft] 100 mg PO DAILY #30 tablet 12/27/18 Spironolactone [Aldactone] 25 mg PO DAILY #30 tablet 12/27/18 Apixaban [Eliquis] 5 mg PO BID #60 tablet 04/14/19 Cefdinir 300 mg PO BID #14 capsule 04/14/19 - Allergies Allergies/Adverse Reactions: Allergies Allergy/AdvReac Type Severity Reaction Status Date / Time amoxicillin [Amoxicillin] Allergy Unknown Rash Verified 04/15/19 17:25 - Social History Does the pt smoke?: No Smoking Status: Never smoker Does the pt drink ETOH?: No Does the pt have substance abuse?: No - Immunizations Immunizations are current?: Yes - POLST Patient has POLST: No POLST Status: Full Code (until verified with spouse) PD ED PE NORMAL - Vitals Vital signs reviewed: Yes - General General: Alert and oriented X 3, Other (He is exceedingly agitated and confrontational. He is clenching his fists and snarling) - HEENT HEENT: Atraumatic, PERRL, Other (Mucous membranes are very dry.) - Neck Neck: No adenopathy, Thyroid normal - Cardiac Cardiac: RRR, No murmur - Respiratory Respiratory: No respiratory distress, Clear bilaterally - Abdomen Abdomen: Normal bowel sounds, No organomegaly, Other (Complains of discomfort with palpation in the lower abdomen without guarding or rebound) - Derm Derm: Other (There is a ready appearance to the skin of the lower extremities bilaterally. There are multiple small scabs in the right lower extremity and bilateral peripheral edema.) - Extremities Extremities: No: No edema - Neuro Neuro: Other (He has no gross neurological deficits but I will not cooperate fully with an exam) - Psych Psych: Other (Agitated) Results - Vitals Vitals: Vital Signs - 24 hr 04/15/19 04/15/19 04/15/19 17:25 17:28 19:28 Temperature 37.6 C H Heart Rate 98 98 88 Respiratory 16 16 16 Rate Blood Pressure 127/67 127/67 110/60 O2 Saturation 92 92 96 04/15/19 21:00 Temperature Heart Rate 78 Respiratory 16 Rate Blood Pressure 102/63 O2 Saturation 92 Oxygen O2 Source [With Activity] Nasal cannula O2 Source Room air - Labs Labs: Laboratory Tests 04/15/19 04/15/19 04/15/19 18:25 18:25 18:25 WBC 10.1 RBC 3.54 L Hgb 11.5 L Hct 35.7 L MCV 100.8 H MCH 32.5 H MCHC 32.2 RDW 15.9 H Plt Count 214 MPV 9.3 Neut # (Auto) 8.6 H Lymph # (Auto) 0.4 L [place] # (Auto) 1.0 Eos # (Auto) 0.0 Baso # (Auto) 0.0 Absolute Nucleated RBC 0.00 Nucleated RBC % 0.0 Sodium 139 Potassium 4.2 Chloride 100 L Carbon Dioxide 28 Anion Gap 11.0 BUN 34 H Creatinine 1.0 Estimated GFR (MDRD) 72 L Glucose 108 H Lactic Acid 1.2 Calcium 8.6 Total Bilirubin 0.9 AST 27 ALT 18 Alkaline Phosphatase 95 Total Protein 7.6 Albumin 3.2 Globulin 4.4 H Albumin/Globulin Ratio 0.7 L Lipase 51 PD MEDICAL DECISION MAKING - ED course Complexity details: reviewed old records, reviewed results, re-evaluated patient, d/w patient, d/w family ED course: In addition to the urinary tract infection he was diagnosed with last night he had a ultrasound done on the right lower extremity that showed possible nonobstructing DVT and he was started on Eliquis. Patient's did arrive here in the emergency department and says that he has been incontinent of urine and she cannot get him up at home to even attempt to clean them. Prior to tonight he was able to be independent at the house. After lengthy discussion with him during which time she became exceedingly agitated decision was made that he would be admitted for observation to treat the urinary tract infection with the hopes that he would then be able to return home. He was absolutely adamant he was not going to a alf facility. His lactate was negative today chest x-ray was clear without evidence of pneumonia. Blood cultures were obtained and are pending. He refused to supply a urine specimen. Labs were essentially normal. Departure - Departure Disposition: [facility] DC/Xfer Discharge Date/Time: 04/15/19 21:48
[2019-04-15] MEDS ORDERED: SODIUM CHLORIDE 0.9% 1,000 ML IV ONE (18:00)
[2019-04-15 18:36] LABS: BASOPHILS % (AUTO) 0.3 %; EOSINOPHILS % (AUTO) 0.1 %; HGB - HEMOGLOBIN 11.5 g/dL (14.0-18.0); LYMPHOCYTES # (AUTO) 0.4 10^3/uL (1.5-3.5); LYMPHOCYTES % (AUTO) 4.4 %; MEAN CORPUSCULAR HEMOGLOBIN 32.5 pg (27.0-31.0); MEAN CORPUSCULAR HGB CONC 32.2 g/dL (32.0-36.0); MEAN CORPUSCULAR VOLUME 100.8 fL (80.0-94.0); MEAN PLATELET VOLUME 9.3 fL (7.4-11.4); MONOCYTES % (AUTO) 9.6 %; NEUTROPHILS # (AUTO) 8.6 10^3/uL (1.5-6.6); PLT - PLATELET COUNT 214 10^3/uL (130-450); RED BLOOD COUNT 3.54 10^6/uL (4.70-6.10); RED CELL DISTRIBUTION WIDTH 15.9 % (12.0-15.0); WHITE BLOOD COUNT 10.1 x10^3/uL (4.8-10.8)
[2019-04-15 18:45] LABS: ALBUMIN 3.2 g/dL (3.2-5.5); ALBUMIN/GLOBULIN RATIO 0.7 (1.0-2.2); BILIRUBIN,TOTAL 0.9 mg/dL (0.2-1.0); CALCIUM 8.6 mg/dL (8.5-10.3); TOTAL PROTEIN 7.6 g/dL (6.7-8.2)
--- NOTE | 2019-04-15 19:28 | XRAY Report ---
Reason: cough Procedure Date: 04/15/2019 Accession Number: [id number] / [id number] Procedure: XR - Chest 2 View X-Ray CPT Code: 61639 FULL RESULT: EXAM: CHEST RADIOGRAPHY EXAM DATE: 04/15/2019 07:02 PM. CLINICAL HISTORY: Cough. COMPARISON: CHEST 1 VIEW 12/24/2018 8:26 AM. TECHNIQUE: 2 views. FINDINGS: Lungs/Pleura: There is reticular opacity within the right lateral lung. There is costophrenic sulcus blunting which may represent small effusions. There is perihilar reticular opacity. Mediastinum: There is cardiomegaly. There is mild thoracic aortic tortuosity. Other: None. IMPRESSION: 1. There is cardiomegaly. 2. There is patchy and reticular opacity within the right lateral chest. Differential considerations include atelectasis, infiltrate, and/or complex effusion. 3. There is bilateral costophrenic sulcus blunting which could represent small effusions and/or pleural thickening. 4. There is no evidence of pneumothorax. RADIA
[2019-04-15] MEDS ORDERED: cefTRIAXone 1 GM in SODIUM CHLORIDE 0.9% MINIBAG 100 ML IV STA (20:58)
[2019-04-15] MEDS ORDERED: ACETAMINOPHEN 325 MG TABLET PO PRN (21:03)
[2019-04-15] MEDS ORDERED: ONDANSETRON 4 MG/2 ML VIAL IVP PRN (21:03)
[2019-04-15] MEDS ORDERED: LACTATED RINGERS 1,000 ML IV ONE (21:05)
[2019-04-15] MEDS: SODIUM CHLORIDE FLUSH 0.9% 10 ML SYRINGE IVP PRN (22:22)
--- NOTE | 2019-04-15 22:30 | HISTORY & PHYSICAL EXAMINATION ---
Chief Complaint - Chief Complaint Chief Complaint: Weakness History of Present Illness - Admitted From Admitted From:: Home - History Obtained From Records Reviewed: Yes History obtained from: Patient, ER Physician, EMR Exam Limitations: Patient has dementia and is a poor historian - History of Present Illness HPI Comment/Other: This is a 78 year old male with a past medical history significant for combined systolic and diastolic heart failure, dementia, Asthma, hypothyroidism, and DVT who presents from due to worsening weakness. He was seen in the emergency department yesterday after he was concerned about possible infection of his right lower extremity as it was becoming erythematous. He has been having difficulty walking because of pain in that extremity as well. He underwent a doppler of his right lower extremity which showed a thrombus in the superficial femoral vein. Given his prior history of DVT in that same extremity and risk of more proximal involvement of the thrombus, he was started on Eliquis. He was also found to have leukocytosis and his urinaylsis was suggestive of infection. Admission was recommended but the patient refused. He was sent home on Cefdinir for the UTI. Since he has been home, his reports that he has been unable to get out of bed, been extremely weak, and defecated on himself which is unusual so she brought him back to the emergency department. She told staff in the ER that he is not more confused than usual but he is more agitated when the hospital is mentioned. The patient initially did not want to be admitted because he believes he will end up in a SNF and he just wants to spend time at home. He denies weakness but he is too weak to ambulate. He states that he uses a walker for ambulation at baseline. He does endorse dysuria but denies fevers, chills, nausea, chest pain, dyspnea. He is concerned about his right leg still being a little erythematous. He reports feeling thirsty. Further history is difficult to obtain secondary to his dementia as he keeps on saying "ask my as she knows." I did attempt to call his but there was no answer. In the ER, he was found to have a temperature of 37.6, heart rate of 98, blood pressure of 127/67 and was saturating low 90's on room air. Labs revealed that his white count had slightly decreased to 10.1 with a left shift. His BUN has risen to 34 with a stable creatinine. Lactic acid was normal. His x-ray was concerning for a reticular opacity within the right lateral chest. Given his UTI and worsening weakness, medicine was consulted for admission. Of note, I did speak with the patient regarding his code status and he states that he would like to be a DNR. History - Past Medical History Cardiovascular: reports: Congestive heart failure, Hypertension, Deep vein thrombosis, Atrial fibrillation Respiratory: reports: Asthma Neuro: reports: Dementia Endocrine/Autoimmune: reports: HyPOthyroidism GI: reports: Ulcers : reports: None HEENT: reports: None Psych: reports: Depression, Claustrophobia Musculoskeletal: reports: Osteoarthritis, Fatigue Derm: reports: None MRSA Hx?: No - Past Surgical History HEENT: reports: Cataracts - Family & Social History Family History: Mother: NC, Brother: CAD, Other family: Diabetes, Type 2 (Maternal Grandmother: diabetes ) Social History Notes: He was in the [employer] and 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 He quit smoking in the . He smoked about 1/4 pack a day for 10 years prior to that. He reports occasional alcohol use. - POLST Patient has POLST: No Meds/Allgy - Home Medications Home Medications: Ambulatory Orders Medication Instructions Recorded Confirmed Albuterol [Ventolin Hfa] 2 puffs INH Q4H PRN 03/29/13 12/23/18 Fluticasone/Salmeterol [Advair 1 puffs INH BID 07/21/15 12/23/18 250-50 Diskus] Atorvastatin [Lipitor] 10 mg PO QPM 12/23/18 12/23/18 Clindamycin HCl [Clindamycin 300MG 300 mg PO Q6H #20 capsule 12/27/18 CAP] Furosemide [Lasix] 20 mg PO DAILY #30 tablet 12/27/18 Levothyroxine Sodium [Synthroid] 300 mcg PO QDAC #90 tablet 12/27/18 Lisinopril [Zestril] 2.5 mg PO DAILY #15 tablet 12/27/18 Montelukast [Singulair] 10 mg PO DAILY #30 tablet 12/27/18 Saccharomyces Boulardii [Florastor] 250 mg PO BID #60 capsule 12/27/18 Sertraline HCl [Zoloft] 100 mg PO DAILY #30 tablet 12/27/18 Spironolactone [Aldactone] 25 mg PO DAILY #30 tablet 12/27/18 Apixaban [Eliquis] 5 mg PO BID #60 tablet 04/14/19 Cefdinir 300 mg PO BID #14 capsule 04/14/19 - Allergies Allergies/Adverse Reactions: Allergies Allergy/AdvReac Type Severity Reaction Status Date / Time amoxicillin [Amoxicillin] Allergy Unknown Rash Verified 04/15/19 17:25 Review of Systems - Constitutional Constitutional: reports: Fatigue. denies: Fever, Chills, Weakness - Cardiovascular Cariovascular: reports: Edema. denies: Chest pain, Exertional dyspnea, Decr. exercise tolerance - Respiratory Respiratory: denies: Cough, SOB at rest, SOB with exertion - Gastrointestinal Gastrointestinal: denies: Abdominal pain, Nausea, Vomiting - Genitourinary Genitourinary: reports: Dysuria, Urgency - Musculoskeletal Musculoskeletal: denies: Muscle pain, Limited range of motion, Muscle weakness - Integumentary Integumentary: reports: Pigment changes - Neurological Neurological: denies: Focal weakness, Numbness - Hematologic/Lymphatic Hematologic/Lymphatic: denies: Bleeding tendencies - All Other Systems All Other Systems: reports: Reviewed and negative, Other (ROS is limited due to patient's dementia as it appears he has a tendency to deny most symptoms.) Prior Level of Functionality: It appears he was at a SNF from mid December until two weeks ago when he went home. He ambulates with a walker at baseline but his told the ER staff that he is normally independent with ADL's. Exam - Vital Signs Reviewed Vital Signs: Yes Vital Signs: Vital Signs x48h Temp Pulse Pulse Resp BP BP Pulse Ox 04/15/19 22:07 37.2 C 70 17 101/79 94 04/15/19 21:00 78 16 102/63 92 04/15/19 19:28 88 16 110/60 96 04/15/19 17:28 98 16 127/67 92 04/15/19 17:25 37.6 C H 98 16 127/67 92 - Physical Exam General Appearance: positive: No acute distress, Alert Eyes Bilateral: positive: Normal inspection, Conjunctivae nml ENT: positive: ENT inspection nml, Dry mucous membranes. negative: No signs of dehydration Neck: positive: Nml inspection Respiratory: positive: No respiratory distress, Other (Diminished breath sounds in right base). negative: Rales, Rhonchi Cardiovascular: positive: Regular rate & rhythm. negative: Tachycardia, Bradycardia, Systolic murmur, Diastolic murmur Abdomen: positive: Non-tender, No distention. negative: Tenderness, Guarding, Rebound Skin: positive: Warm, Dry, Other (Multiple excoriatons located over his right lower extremity from the knee to his ankle) Extremities: positive: Pedal edema (His right lower extremity has +1 pitting edema. It is more edematous compared to his left lower extremity which has trace edema.) Neurologic/Psychiatric: positive: Motor nml, Sensation nml, Disoriented to person, Disoriented to place. negative: Disoriented to time (He is not oriented to year or month.), Weakness Conclusion/Plan - Problem List (1) E. coli UTI Conclusion/Plan: He does not meet sepsis criteria at this time as his leukocytosis is improving but he is borderline given he was tachycardic initially and has had a low grade temperature of 37.7. His blood pressure is also borderline hypotensive with a systolic in the 100's and MAP of about 70. His urine culture from 04/14 is growing E. coli. Infection is present on admission and is not related to catheter use. Will continue IV ceftriaxone and de-escalate to oral antibiotics once cultures are back. Follow up blood cultures. (2) Acute superficial venous thrombosis of right lower extremity Conclusion/Plan: Doppler of right lower extremity was concerning for questionable nonocclusive thrombus within the right superficial femoral vein. He was started on Eliquis yesterday given the concern for proximal involvement and his prior history of DVT in that lower extremity. Will continue Eliquis but increase the dose to 10mg PO BID for the first 7 days and then decrease to 5mg PO BID. He will need follow up with PCP on outpatient basis. (3) Dehydration, mild Conclusion/Plan: He appears clinically dehydrated as he has dry oral mucosa and his BUN is elevated compared to baseline and even yesterday's labs. Suspect he has had poor oral intake secondary to his UTI. Will judiciously hydrate with IV fluids given his heart failure. (4) Weakness generalized Conclusion/Plan: This is like multifactorial and secondary to his UTI and dehydration. He is norm ally independent with ADL's but has been unable to get out of bed and defecated on himself which is new for him. This should improve with antibiotics and IV hydration. Will consult PT/OT as he may benefit from home therapies. He has made it quite clear that he will not go to a SNF again. (5) Chronic combined systolic and diastolic CHF (congestive heart failure) Conclusion/Plan: His last Echo in December revealed an EF of 45% and grade 1 diastolic dysfunction. Stable and not in exacerbation. It appears he is not on a beta carlos due to prior bradycardia. Will judiciously hydrate him as he does appear dry on exam. Will hold home Aldactone and Lasix for now. Will likely resume Lisinopril in the AM. (6) Asthma Conclusion/Plan: Stable and not in exacerbation. Will resume his home LABA/ICS and have Albuterol available PRN. (7) Dementia Conclusion/Plan: He appears to be at baseline from a mental status point of view. Oriented to self and location but not to time/date. Was agitated in the ER earlier but appears this is related to him being in the hospital and may not be due to his infection. (8) Hypothyroidism Conclusion/Plan: His most recent TSH from last month was 0.21. Will hold his home Synthroid for now and recheck TSH in AM. Given his age, his TSH should be closer to the upper limit of normal. He will likely require a reduction in his dose. - Lab Results Lab results reviewed: Yes David Bones: 04/16/19 06:10 04/16/19 05:21 - Diagnostic Imaging Results Diagnostic Imaging Results: positive: Final report reviewed Core Measures - Anticipated LOS I expect patient to be DC'd or transferred within 96 hours.: Yes - Issues Hospital Issues and Management Plan: UTI causing increasing weakness requiring IV antibiotics. - DVT/VTE - Prophylaxis VTE/DVT Device ordered at admit?: Yes VTE/DVT Prophylaxis med ordered at admit?: Yes
[2019-04-16] MEDS: LACTATED RINGERS 1,000 ML IV SCH ×3 (04:11→19:30)
[2019-04-16] MEDS: SODIUM CHLORIDE FLUSH 0.9% 10 ML SYRINGE IVP SCH ×3 (04:13→16:19)
[2019-04-16 06:12] LABS: BASOPHILS % (AUTO) 0.4 %; EOSINOPHILS # (AUTO) 0.1 10^3/uL (0.0-0.7); EOSINOPHILS % (AUTO) 0.7 %; HGB - HEMOGLOBIN 10.3 g/dL (14.0-18.0); LYMPHOCYTES # (AUTO) 0.5 10^3/uL (1.5-3.5); LYMPHOCYTES % (AUTO) 6.7 %; MEAN CORPUSCULAR HEMOGLOBIN 32.2 pg (27.0-31.0); MEAN CORPUSCULAR HGB CONC 31.8 g/dL (32.0-36.0); MEAN CORPUSCULAR VOLUME 101.3 fL (80.0-94.0); MEAN PLATELET VOLUME 9.3 fL (7.4-11.4); MONOCYTES # (AUTO) 0.8 10^3/uL (0.0-1.0); MONOCYTES % (AUTO) 10.2 %; PLT - PLATELET COUNT 175 10^3/uL (130-450); RED CELL DISTRIBUTION WIDTH 15.7 % (12.0-15.0); WHITE BLOOD COUNT 7.3 x10^3/uL (4.8-10.8)
[2019-04-16 06:29] LABS: CALCIUM 7.9 mg/dL (8.5-10.3); CREATININE 0.9 mg/dL (0.6-1.2); MAGNESIUM 2.1 mg/dL (1.7-2.8); PHOSPHORUS 3.4 mg/dL (2.5-4.6)
[2019-04-16] MEDS: BUDESONIDE 0.5 MG/2 ML NEB INH SCH ×2 (08:30→19:45)
[2019-04-16] MEDS: FORMOTEROL FUMARATE NEB 20 MCG/2 ML INH SCH ×2 (08:31→19:45)
[2019-04-16] MEDS: SERTRALINE 50 MG TABLET PO SCH (09:44)
[2019-04-16] MEDS: APIXABAN 5 MG TABLET PO SCH ×2 (09:44→20:45)
[2019-04-16] MEDS: cefTRIAXone 1 GM in SODIUM CHLORIDE 0.9% MINIBAG 100 ML IV SCH (09:44)
--- NOTE | 2019-04-16 11:04 | PROVIDER PROGRESS NOTE ---
Subjective - Prog Note Date Prog Note Date: 04/16/19 Prog Note Time: 11:15 - Subjective Pt reports feeling: Improved Subjective: he is alert, watching TV and handles remote well to mute. Just not wanting to eat. The eggs and potatoes are "too much" denies cp, sob, abd pain. Just tired and overall "hurts all over" Current Medications - Current Medications Current Medications: Active Medications Acetaminophen (Tylenol) 650 mg PO Q4HR PRN PRN Reason: Pain 1 to 4 Albuterol () 2.5 mg INH RTQ4H PRN PRN Reason: Wheezing Apixaban (Eliquis) 10 mg PO BID [facility] Last Admin: 04/16/19 09:44 Dose: 10 mg Atorvastatin Calcium (Lipitor) 10 mg PO QPM [facility] Budesonide (Pulmicort) 0.5 mg INH RTBID [facility] Last Admin: 04/16/19 08:30 Dose: 0.5 mg Formoterol Fumarate (Perforomist) 20 mcg INH RTBID [facility] Last Admin: 04/16/19 08:31 Dose: 20 mcg Lactated Ringer's (Lr) 1,000 mls @ 100 mls/hr IV .Q10H [facility] Last Infusion: 04/16/19 09:46 Dose: 0 mls/hr Ceftriaxone Sodium 1 gm/ (Sodium Chloride) 100 mls @ 200 mls/hr IV DAILY [facility] Last Admin: 04/16/19 09:44 Dose: 200 mls/hr Levothyroxine Sodium (Synthroid) 250 mcg PO QDAC [facility] Lisinopril (Zestril) 2.5 mg PO DAILY [facility] Mineral Oil (Cavilon) 1 applic TOP PRN PRN PRN Reason: Skin Care Montelukast Sodium (Singulair) 10 mg PO QPM [facility] Ondansetron HCl (Zofran Inj) 4 mg IVP Q6HR PRN PRN Reason: Nausea / Vomiting Sertraline HCl (Zoloft) 100 mg PO DAILY [facility] Last Admin: 04/16/19 09:44 Dose: 100 mg Sodium Chloride (Normal Saline Flush 0.9%) 10 ml IVP PRN PRN PRN Reason: NEEDED PER PROVIDER ORDERS Last Admin: 04/15/19 22:22 Dose: 10 ml Sodium Chloride (Normal Saline Flush 0.9%) 10 ml IVP 0100,0900,1700 [facility] Last Admin: 04/16/19 09:45 Dose: Not Given Albuterol [Ventolin Hfa] 2 puffs INH Q4H PRN 03/29/13 Fluticasone/Salmeterol [Advair 250-50 Diskus] 1 puffs INH BID 07/21/15 Atorvastatin [Lipitor] 10 mg PO QPM 12/23/18 Objective - Vital Signs/Intake & Output Reviewed Vital Signs: Yes Vital Signs: Vital Signs x48h Temp Pulse Pulse Resp BP Pulse Ox 04/16/19 08:30 85 14 04/16/19 08:26 37.4 C 72 18 110/66 92 04/16/19 05:00 37.3 C 79 18 115/59 L 92 04/16/19 04:29 37.7 C H 77 18 92 Intake & Output: Intake & Output 04/13/19 04/14/19 04/15/19 04/16/19 23:59 23:59 23:59 23:59 Intake Total 2011.9 1125.433 Output Total 125 Balance 2011.9 1000.433 - Objective General Appearance: positive: No acute distress, Alert, Other (elderly white male, well groomed, well nourished, beared) Eyes Bilateral: positive: PERRL ENT: positive: Pharynx nml, No signs of dehydration Neck: positive: No JVD. negative: Stiff neck, Carotid bruit Respiratory: positive: Chest non-tender. negative: Wheezes, Rales, Rhonchi Cardiovascular: positive: Regular rate & rhythm, Systolic murmur. negative: Gallop/S4, Friction rub Abdomen: positive: Non-tender, No organomegaly, Nml bowel sounds, No distention Skin: positive: Warm, Dry Extremities: positive: Non-tender, No pedal edema Neurologic/Psychiatric: positive: CN's nml (2-12) (except very deaf), Motor nml, Disoriented to time, Other (forgets to push aide button and will start to yell thru closed door and frustrated no one hears him, reminded to push the button and we will leave door open) - Lab Results Fish Bones: 04/16/19 06:10 04/16/19 05:21 Other Labs: Lab Results x24hrs 04/16/19 04/16/19 04/16/19 Range/Units 06:10 05:21 05:21 WBC 7.3 (4.8-10.8) x10^3/uL RBC 3.20 L (4.70-6.10) 10^6/uL Hgb 10.3 L (14.0-18.0) g/dL Hct 32.4 L (42.0-52.0) % MCV 101.3 H (80.0-94.0) fL MCH 32.2 H (27.0-31.0) pg MCHC 31.8 L (32.0-36.0) g/dL RDW 15.7 H (12.0-15.0) % Plt Count 175 (130-450) 10^3/uL MPV 9.3 (7.4-11.4) fL Neut # (Auto) 6.0 (1.5-6.6) 10^3/uL Lymph # (Auto) 0.5 L (1.5-3.5) 10^3/uL [place] # (Auto) 0.8 (0.0-1.0) 10^3/uL Eos # (Auto) 0.1 (0.0-0.7) 10^3/uL Baso # (Auto) 0.0 (0.0-0.1) 10^3/uL Absolute Nucleated RBC 0.00 x10^3/uL Nucleated RBC % 0.0 /100WBC Sodium (135-145) mmol/L Potassium (3.5-5.0) mmol/L Chloride (101-111) mmol/L Carbon Dioxide (21-32) mmol/L Anion Gap (6-13) BUN (6-20) mg/dL Creatinine (0.6-1.2) mg/dL Estimated GFR (MDRD) (>89) Glucose (70-100) mg/dL Lactic Acid (0.5-2.2) mmol/L Calcium (8.5-10.3) mg/dL Phosphorus (2.5-4.6) mg/dL Magnesium (1.7-2.8) mg/dL Total Bilirubin (0.2-1.0) mg/dL AST (10-42) IU/L ALT (10-60) IU/L Alkaline Phosphatase (42-121) IU/L Troponin I High Sens 14.9 (2.3-19.7) pg/mL Total Protein (6.7-8.2) g/dL Albumin (3.2-5.5) g/dL Globulin (2.1-4.2) g/dL Albumin/Globulin Ratio (1.0-2.2) Lipase (22-51) U/L TSH 0.18 L (0.34-5.60) uIU/mL 04/16/19 04/15/19 04/15/19 Range/Units 05:21 18:25 18:25 WBC (4.8-10.8) x10^3/uL RBC (4.70-6.10) 10^6/uL Hgb (14.0-18.0) g/dL Hct (42.0-52.0) % MCV (80.0-94.0) fL MCH (27.0-31.0) pg MCHC (32.0-36.0) g/dL RDW (12.0-15.0) % Plt Count (130-450) 10^3/uL MPV (7.4-11.4) fL Neut # (Auto) (1.5-6.6) 10^3/uL Lymph # (Auto) (1.5-3.5) 10^3/uL [place] # (Auto) (0.0-1.0) 10^3/uL Eos # (Auto) (0.0-0.7) 10^3/uL Baso # (Auto) (0.0-0.1) 10^3/uL Absolute Nucleated RBC x10^3/uL Nucleated RBC % /100WBC Sodium 138 139 (135-145) mmol/L Potassium 3.7 4.2 (3.5-5.0) mmol/L Chloride 102 100 L (101-111) mmol/L Carbon Dioxide 25 28 (21-32) mmol/L Anion Gap 11.0 11.0 (6-13) BUN 25 H 34 H (6-20) mg/dL Creatinine 0.9 1.0 (0.6-1.2) mg/dL Estimated GFR (MDRD) 81 L 72 L (>89) Glucose 96 108 H (70-100) mg/dL Lactic Acid 1.2 (0.5-2.2) mmol/L Calcium 7.9 L 8.6 (8.5-10.3) mg/dL Phosphorus 3.4 (2.5-4.6) mg/dL Magnesium 2.1 (1.7-2.8) mg/dL Total Bilirubin 0.9 (0.2-1.0) mg/dL AST 27 (10-42) IU/L ALT 18 (10-60) IU/L Alkaline Phosphatase 95 (42-121) IU/L Troponin I High Sens (2.3-19.7) pg/mL Total Protein 7.6 (6.7-8.2) g/dL Albumin 3.2 (3.2-5.5) g/dL Globulin 4.4 H (2.1-4.2) g/dL Albumin/Globulin Ratio 0.7 L (1.0-2.2) Lipase 51 (22-51) U/L TSH (0.34-5.60) uIU/mL 04/15/19 Range/Units 18:25 WBC 10.1 (4.8-10.8) x10^3/uL RBC 3.54 L (4.70-6.10) 10^6/uL Hgb 11.5 L (14.0-18.0) g/dL Hct 35.7 L (42.0-52.0) % MCV 100.8 H (80.0-94.0) fL MCH 32.5 H (27.0-31.0) pg MCHC 32.2 (32.0-36.0) g/dL RDW 15.9 H (12.0-15.0) % Plt Count 214 (130-450) 10^3/uL MPV 9.3 (7.4-11.4) fL Neut # (Auto) 8.6 H (1.5-6.6) 10^3/uL Lymph # (Auto) 0.4 L (1.5-3.5) 10^3/uL [place] # (Auto) 1.0 (0.0-1.0) 10^3/uL Eos # (Auto) 0.0 (0.0-0.7) 10^3/uL Baso # (Auto) 0.0 (0.0-0.1) 10^3/uL Absolute Nucleated RBC 0.00 x10^3/uL Nucleated RBC % 0.0 /100WBC Sodium (135-145) mmol/L Potassium (3.5-5.0) mmol/L Chloride (101-111) mmol/L Carbon Dioxide (21-32) mmol/L Anion Gap (6-13) BUN (6-20) mg/dL Creatinine (0.6-1.2) mg/dL Estimated GFR (MDRD) (>89) Glucose (70-100) mg/dL Lactic Acid (0.5-2.2) mmol/L Calcium (8.5-10.3) mg/dL Phosphorus (2.5-4.6) mg/dL Magnesium (1.7-2.8) mg/dL Total Bilirubin (0.2-1.0) mg/dL AST (10-42) IU/L ALT (10-60) IU/L Alkaline Phosphatase (42-121) IU/L Troponin I High Sens (2.3-19.7) pg/mL Total Protein (6.7-8.2) g/dL Albumin (3.2-5.5) g/dL Globulin (2.1-4.2) g/dL Albumin/Globulin Ratio (1.0-2.2) Lipase (22-51) U/L TSH (0.34-5.60) uIU/mL ABX Reporting Has patient been on IV antibiotics over the past 48 hours?: Yes Sepsis Event Note (H) - Evaluation Current Stage of Sepsis: Sepsis - Sepsis Criteria Sepsis Criteria: Recorded Heart Rate greater than 90 bpm Assessment/Plan - Problem List (1) E. coli UTI Impression: He does not meet sepsis criteria at this time as his leukocytosis is improving but he is borderline given he was tachycardic initially and has had a low grade temperature of 37.7. His blood pressure is also borderline hypotensive with a systolic in the 100's and MAP of about 70. His urine culture from 04/14 is growin g E. coli. Infection is present on admission and is not related to catheter use. Will continue IV ceftriaxone and de-escalate to oral antibiotics once cultures are back. Blood cultures ordered and in process. Will not be ready until 48 hours. (2) Acute superficial venous thrombosis of right lower extremity Conclusion/Plan: Doppler of right lower extremity was concerning for questionable nonocclusive thrombus within the right superficial femoral vein. He was started on Eliquis 10 given the concern for proximal involvement and his prior history of DVT in that lower extremity. Will continue Eliquis but increase the dose to 10mg PO BID for the first 7 days and then decrease to 5mg PO BID. He will need follow up with PCP on outpatient basis. (3) Dehydration, mild Conclusion/Plan: He appears clinically dehydrated as he has dry oral mucosa and his BUN is elevated compared to baseline and even yesterday's labs. Suspect he has had poor oral intake secondary to his UTI. Will judiciously hydrate with IV fluids given his heart failure. BUN 34>25 Creat 1.0>0.9 (4) Weakness generalized Conclusion/Plan: This is like multifactorial and secondary to his UTI and dehydration. He is normally independent with ADL's but has been unable to get out of bed and defecated on himself which is new for him. This should improve with antibiotics and IV hydration. PT/OT to see him today as he may benefit from home therapies. He has made it quite clear that he will not go to a SNF again. But this am, doesn't want to get out of bed to eat. Wants to stay there and not sit up in chair. (5) Chronic combined systolic and diastolic CHF (congestive heart failure) Conclusion/Plan: His last Echo in December revealed an EF of 45% and grade 1 diastolic dysfunction. Stable and not in exacerbation. It appears he is not on a beta carlos due to prior bradycardia. Will judiciously hydrate him as he does appear dry on exam. Will hold home Aldactone and Lasix for now. Will likely resume Lisinopril this am. (6) Asthma Conclusion/Plan: Stable and not in exacerbation. Will resume his home LABA/ICS and have Albuterol available PRN. (7) Dementia with acute mild metabolic encephalopathy Conclusion/Plan: He appears to be at baseline from a mental status point of view. Oriented to self and location but not to time/date. Was agitated in the ER earlier but appears this is related to him being in the hospital and may not be due to his infection. This am, gets frustrated and he is forgetful but able to list meds and give a decent timeline for his illness. Doesn't like the food and doesn't have an appetite. (8) Hypothyroidism Conclusion/Plan: His most recent TSH from last month was 0.21. Will hold his home Synthroid for now and rechecked TSH this AM and is 0.18. Given his age, his TSH should be closer to the upper limit of normal. He will likely require a reduction in his dose. When I resume, resume at 175 mcg.
[2019-04-16] MEDS: LISINOPRIL 5 MG TABLET PO SCH (13:06)
[2019-04-16] MEDS: BENZOCAINE/MENTHOL LOZENGE MM PRN (13:07)
[2019-04-16] MEDS: MIN OIL/DIMETHICON/COCONUT OIL 92 GM TUBE TOP PRN ×2 (17:35→21:34)
[2019-04-16] MEDS: ALBUTEROL NEB 2.5 MG/3 ML INH PRN (19:45)
[2019-04-16] MEDS: ATORVASTATIN 10 MG TABLET PO SCH (20:45)
[2019-04-16] MEDS: MONTELUKAST 10 MG TABLET PO SCH (20:45)
[2019-04-17] MEDS: LACTATED RINGERS 1,000 ML IV SCH ×3 (03:38→17:01)
[2019-04-17] MEDS: SODIUM CHLORIDE FLUSH 0.9% 10 ML SYRINGE IVP SCH ×3 (03:40→20:42)
[2019-04-17 05:18] LABS: BASOPHILS # (AUTO) 0.1 10^3/uL (0.0-0.1); BASOPHILS % (AUTO) 0.7 %; EOSINOPHILS # (AUTO) 0.2 10^3/uL (0.0-0.7); EOSINOPHILS % (AUTO) 2.9 %; HGB - HEMOGLOBIN 10.3 g/dL (14.0-18.0); LYMPHOCYTES # (AUTO) 0.6 10^3/uL (1.5-3.5); LYMPHOCYTES % (AUTO) 8.8 %; MEAN CORPUSCULAR HEMOGLOBIN 32.6 pg (27.0-31.0); MEAN CORPUSCULAR HGB CONC 32.2 g/dL (32.0-36.0); MEAN CORPUSCULAR VOLUME 101.3 fL (80.0-94.0); MEAN PLATELET VOLUME 9.2 fL (7.4-11.4); MONOCYTES # (AUTO) 0.9 10^3/uL (0.0-1.0); MONOCYTES % (AUTO) 12.4 %; NEUTROPHILS # (AUTO) 5.2 10^3/uL (1.5-6.6); NEUTROPHILS % (AUTO) 73.9 %; PLT - PLATELET COUNT 168 10^3/uL (130-450); RED BLOOD COUNT 3.16 10^6/uL (4.70-6.10); RED CELL DISTRIBUTION WIDTH 15.7 % (12.0-15.0)
[2019-04-17 05:32] LABS: CALCIUM 7.9 mg/dL (8.5-10.3); CREATININE 0.7 mg/dL (0.6-1.2); PHOSPHORUS 3.2 mg/dL (2.5-4.6)
[2019-04-17] MEDS ORDERED: LEVOTHYROXINE 125 MCG TABLET PO SCH (07:00)
[2019-04-17] MEDS: SACCHAROMYCES BOULARDII 250 MG CAPSULE PO SCH ×2 (09:20→17:46)
[2019-04-17] MEDS: SERTRALINE 50 MG TABLET PO SCH (09:20)
[2019-04-17] MEDS: APIXABAN 5 MG TABLET PO SCH ×2 (09:20→20:39)
[2019-04-17] MEDS: cefTRIAXone 1 GM in SODIUM CHLORIDE 0.9% MINIBAG 100 ML IV SCH (09:21)
[2019-04-17] MEDS: LISINOPRIL 5 MG TABLET PO SCH (09:21)
[2019-04-17] MEDS: ALBUTEROL NEB 2.5 MG/3 ML INH PRN ×2 (09:22→19:34)
[2019-04-17] MEDS: FORMOTEROL FUMARATE NEB 20 MCG/2 ML INH SCH ×2 (09:22→19:34)
[2019-04-17] MEDS: BUDESONIDE 0.5 MG/2 ML NEB INH SCH ×2 (09:22→19:33)
--- NOTE | 2019-04-17 15:29 | PROVIDER PROGRESS NOTE ---
Subjective - Prog Note Date Prog Note Date: 04/17/19 - Subjective Pt reports feeling: Improved Subjective: pt report he felt better. pt is alert and oriented plus two. he know person, location but no time. 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 pt denies fever, chill, chest pain, shortness of breath. Current Medications - Current Medications Current Medications: Active Medications Acetaminophen (Tylenol) 650 mg PO Q4HR PRN PRN Reason: Pain 1 to 4 Albuterol () 2.5 mg INH RTQ4H PRN PRN Reason: Wheezing Last Admin: 04/17/19 09:22 Dose: 2.5 mg Apixaban (Eliquis) 10 mg PO BID [facility] Last Admin: 04/17/19 09:20 Dose: 10 mg Atorvastatin Calcium (Lipitor) 10 mg PO QPM [facility] Last Admin: 04/16/19 20:45 Dose: 10 mg Budesonide (Pulmicort) 0.5 mg INH RTBID [facility] Last Admin: 04/17/19 09:22 Dose: 0.5 mg Formoterol Fumarate (Perforomist) 20 mcg INH RTBID [facility] Last Admin: 04/17/19 09:22 Dose: 20 mcg Ceftriaxone Sodium 1 gm/ (Sodium Chloride) 100 mls @ 200 mls/hr IV DAILY [facility] Last Infusion: 04/17/19 12:31 Dose: Infused Lactated Ringer's (Lr) 1,000 mls @ 75 mls/hr IV .[id number] [facility] Stop: 04/18/19 10:33 Last Admin: 04/17/19 09:23 Dose: 75 mls/hr Lisinopril (Zestril) 2.5 mg PO DAILY [facility] Last Admin: 04/17/19 09:21 Dose: 2.5 mg Mineral Oil (Cavilon) 1 applic TOP PRN PRN PRN Reason: Skin Care Last Admin: 04/16/19 21:34 Dose: 1 applic Montelukast Sodium (Singulair) 10 mg PO QPM [facility] Last Admin: 04/16/19 20:45 Dose: 10 mg Ondansetron HCl (Zofran Inj) 4 mg IVP Q6HR PRN PRN Reason: Nausea / Vomiting Saccharomyces Boulardii (Florastor) 250 mg PO BIDWM [facility] Last Admin: 04/17/19 09:20 Dose: 250 mg Sertraline HCl (Zoloft) 100 mg PO DAILY [facility] Last Admin: 04/17/19 09:20 Dose: 100 mg Sodium Chloride (Normal Saline Flush 0.9%) 10 ml IVP PRN PRN PRN Reason: NEEDED PER PROVIDER ORDERS Last Admin: 04/15/19 22:22 Dose: 10 ml Sodium Chloride (Normal Saline Flush 0.9%) 10 ml IVP 0100,0900,1700 [facility] Last Admin: 04/17/19 12:23 Dose: Not Given Throat Lozenges (Cepacol) 1 lozenge MM Q2HR PRN PRN Reason: Throat pain Last Admin: 04/16/19 13:07 Dose: 1 lozenge Albuterol [Ventolin Hfa] 2 puffs INH Q4H PRN 03/29/13 Buspirone HCl 15 mg PO BID 04/16/19 Fluticasone/Salmeterol [Advair Hfa 45-21 Mcg Inhaler] 1 puffs INH BID 04/16/19 Furosemide [Lasix] 20 mg PO DAILY 04/16/19 Montelukast [Singulair] 10 mg PO QPM 04/16/19 Sertraline HCl [Zoloft] 100 mg PO DAILY 04/16/19 Objective - Vital Signs/Intake & Output Reviewed Vital Signs: Yes Vital Signs: Vital Signs x48h Temp Pulse Pulse Resp BP Pulse Ox 04/17/19 09:30 71 16 04/17/19 08:04 37.2 C 61 18 113/75 90 L Intake & Output: Intake & Output 04/14/19 04/15/19 04/16/19 04/17/19 23:59 23:59 23:59 23:59 Intake Total 2011.9 3708.100 2652.333 Output Total 275 Balance 2011.9 6813.100 2652.333 - Objective General Appearance: positive: No acute distress, Alert. negative: Lethargic Eyes Bilateral: positive: Normal inspection, PERRL, No lid inflammation, Conjunctivae nml ENT: positive: ENT inspection nml, Pharynx nml, No signs of dehydration. negat mimi: Purulent nasal drainage, Pharyngeal erythema, Oral lesions Neck: positive: Nml inspection, Thyroid nml, No JVD, Trachea midline. negative: Thyromegaly, Lymphadenopathy (R), Lymphadenopathy (L), Stiff neck, Swelling/bruising, Tracheal deviation Respiratory: positive: Chest non-tender, No respiratory distress, Breath sounds nml. negative: Wheezes, Rales, Rhonchi Cardiovascular: positive: Regular rate & rhythm, No murmur, No gallop. negative: Irregularly irregular, Extrasystoles, Tachycardia, Bradycardia, JVD present, Systolic murmur, Diastolic murmur Peripheral Pulses: 2+ Radial (R), 2+ Radial (L), 2+ Dorsalis pedis (R), 2+ Dorsalis pedis (L) Abdomen: positive: Non-tender, No organomegaly, Nml bowel sounds, No distention. negative: Tenderness, Guarding, Rebound Back: positive: Nml inspection. negative: CVA tenderness (R), CVA tenderness (L) Skin: positive: Color nml, No rash, Warm, Dry. negative: Cyanosis, Diaphoresis, Pallor Extremities: positive: Non-tender, Full ROM, Nml appearance. negative: Calf tenderness, Joint swelling, Siva's sign/cords Neurologic/Psychiatric: positive: Sensation nml, Mood/affect nml. negative: Weakness, Sensory loss, Facial droop, Slurred/abnml speech, Depressed mood/affect - Lab Results Fish Bones: 04/17/19 05:11 04/17/19 05:11 Other Labs: Lab Results x24hrs 04/17/19 04/17/19 04/17/19 Range/Units 05:11 05:11 05:11 WBC 7.0 (4.8-10.8) x10^3/uL RBC 3.16 L (4.70-6.10) 10^6/uL Hgb 10.3 L (14.0-18.0) g/dL Hct 32.0 L (42.0-52.0) % MCV 101.3 H (80.0-94.0) fL MCH 32.6 H (27.0-31.0) pg MCHC 32.2 (32.0-36.0) g/dL RDW 15.7 H (12.0-15.0) % Plt Count 168 (130-450) 10^3/uL MPV 9.2 (7.4-11.4) fL Neut # (Auto) 5.2 (1.5-6.6) 10^3/uL Lymph # (Auto) 0.6 L (1.5-3.5) 10^3/uL [place] # (Auto) 0.9 (0.0-1.0) 10^3/uL Eos # (Auto) 0.2 (0.0-0.7) 10^3/uL Baso # (Auto) 0.1 (0.0-0.1) 10^3/uL Absolute Nucleated RBC 0.00 x10^3/uL Nucleated RBC % 0.0 /100WBC Sodium 138 (135-145) mmol/L Potassium 3.9 (3.5-5.0) mmol/L Chloride 103 (101-111) mmol/L Carbon Dioxide 26 (21-32) mmol/L Anion Gap 9.0 (6-13) BUN 19 (6-20) mg/dL Creatinine 0.7 (0.6-1.2) mg/dL Estimated GFR (MDRD) 109 (>89) Glucose 99 (70-100) mg/dL Calcium 7.9 L (8.5-10.3) mg/dL Phosphorus 3.2 (2.5-4.6) mg/dL Magnesium 2.0 (1.7-2.8) mg/dL Free T4 1.28 (0.58-1.64) ng/dL ABX Reporting Has patient been on IV antibiotics over the past 48 hours?: Yes Sepsis Event Note (H) - Evaluation Current Stage of Sepsis: Sepsis - Sepsis Criteria Sepsis Criteria: Recorded Heart Rate greater than 90 bpm Assessment/Plan - Problem List (1) Bacteremia Impression: 04/17 one tube of blood culture is positive for Ecoli. pt had previous elevated temperature but no fever since he was admitted. Sensitivity study is pending now. pt has no elevate temperature since from yesterday. continue IV of Rocephin continue vital monitor (2) E. coli UTI Impression: 04/17 pt's mental status is improved. continue Rocephin and sensitivity study is pending refer from 's progress report He does not meet sepsis criteria at this time as his leukocytosis is improving but he is borderline given he was tachycardic initially and has had a low grade temperature of 37.7. His blood pressure is also borderline hypotensive with a systolic in the 100's and MAP of about 70. His urine culture from 04/14 is growing E. coli. Infection is present on admission and is not related to catheter use. Will continue IV ceftriaxone and de-escalate to oral antibiotics once cultures are back. Blood cultures ordered and in process. Will not be ready until 48 hours. (2) Acute superficial venous thrombosis of right lower extremity Conclusion/Plan: 04/17 stable, will continue finish 7 days of 10 mg bid of eliquis, then switch to 5 mg bid, which is likely his PCP do for pt. refer from 's progress report Doppler of right lower extremity was concerning for questionable nonocclusive thrombus within the right superficial femoral vein. 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 Will continue Eliquis but increase the dose to 10mg PO BID for the first 7 days and then decrease to 5mg PO BID. He will need follow up with PCP on outpatient basis. (3) Dehydration, mild Conclusion/Plan: 04/17 improved to pt's baseline creatinine, reduce IVF of 75cc/hour continue lab monitor, hydration for pt refer from 's progress report He appears clinically dehydrated as he has dry oral mucosa and his BUN is elevated compared to baseline and even yesterday's labs. Suspect he has had poor oral intake secondary to his UTI. Will judiciously hydrate with IV fluids given his heart failure. BUN 34>25 Creat 1.0>0.9 (4) Weakness generalized Conclusion/Plan: improved, will continue PT/OT (5) Chronic combined systolic and diastolic CHF (congestive heart failure) Conclusion/Plan: 04/17 stable, continue Lisinopril now. hold home Aldactone and Lasix for now for pt's low BP refer from 's progress report His last Echo in December revealed an EF of 45% and grade 1 diastolic dysfunction. Stable and not in exacerbation. It appears he is not on a beta carlos due to prior bradycardia. Will judiciously hydrate him as he does appear dry on exam. Will hold home Aldactone and Lasix for now. Will likely resume Lisinopril this am. (6) Asthma Conclusion/Plan: Stable and not in exacerbation. Will resume his home LABA/ICS and have Albuterol available PRN. (7) Dementia with acute mild metabolic encephalopathy Conclusion/Plan: He appears to be at baseline from a mental status point of view. Oriented to self and location but not to time/date. Was agitated in the ER earlier but appears this is related to him being in the hospital and may not be due to his infection. This am, gets frustrated and he is forgetful but able to list meds and give a decent timeline for his illness. Doesn't like the food and doesn't have an appetite. (8) Hypothyroidism Conclusion/Plan: 04/17 pt took 300mcg synthroid at home, now TSH is lower than normal. will change his synthroid to 250 mcg tomorrow. followup PCP for management in out-pt. His most recent TSH from last month was 0.21. Will hold his home Synthroid for now and rechecked TSH this AM and is 0.18. Given his age, his TSH should be closer to the upper limit of normal. He will likely require a reduction in his dose. When I resume, resume at 175 mcg.
[2019-04-17] MEDS: MONTELUKAST 10 MG TABLET PO SCH (20:39)
[2019-04-17] MEDS: ATORVASTATIN 10 MG TABLET PO SCH (20:39)
[2019-04-18 05:35] LABS: BASOPHILS % (AUTO) 0.4 %; EOSINOPHILS # (AUTO) 0.3 10^3/uL (0.0-0.7); EOSINOPHILS % (AUTO) 3.7 %; HGB - HEMOGLOBIN 10.6 g/dL (14.0-18.0); LYMPHOCYTES # (AUTO) 0.9 10^3/uL (1.5-3.5); LYMPHOCYTES % (AUTO) 12.7 %; MEAN CORPUSCULAR HGB CONC 31.7 g/dL (32.0-36.0); MEAN CORPUSCULAR VOLUME 100.9 fL (80.0-94.0); MEAN PLATELET VOLUME 10.1 fL (7.4-11.4); MONOCYTES # (AUTO) 0.9 10^3/uL (0.0-1.0); MONOCYTES % (AUTO) 12.7 %; NEUTROPHILS # (AUTO) 4.8 10^3/uL (1.5-6.6); NEUTROPHILS % (AUTO) 68.9 %; PLT - PLATELET COUNT 166 10^3/uL (130-450); RED BLOOD COUNT 3.31 10^6/uL (4.70-6.10); RED CELL DISTRIBUTION WIDTH 15.8 % (12.0-15.0); WHITE BLOOD COUNT 6.9 x10^3/uL (4.8-10.8)
[2019-04-18 05:47] LABS: CREATININE 0.6 mg/dL (0.6-1.2); PHOSPHORUS 3.3 mg/dL (2.5-4.6)
[2019-04-18] MEDS: SODIUM CHLORIDE FLUSH 0.9% 10 ML SYRINGE IVP SCH ×2 (06:13→08:36)
[2019-04-18] MEDS: SODIUM CHLORIDE FLUSH 0.9% 10 ML SYRINGE IVP PRN ×2 (06:26→10:52)
[2019-04-18] MEDS: BENZOCAINE/MENTHOL LOZENGE MM PRN (06:38)
[2019-04-18] MEDS ORDERED: LEVOTHYROXINE 100 MCG TABLET PO SCH (07:00)
[2019-04-18] MEDS ORDERED: LEVOTHYROXINE 125 MCG TABLET PO SCH (07:00)
[2019-04-18 08:30] VITALS: BP 117/58
[2019-04-18] MEDS: LISINOPRIL 5 MG TABLET PO SCH (08:35)
[2019-04-18] MEDS: SACCHAROMYCES BOULARDII 250 MG CAPSULE PO SCH (08:35)
[2019-04-18] MEDS: cefTRIAXone 1 GM in SODIUM CHLORIDE 0.9% MINIBAG 100 ML IV SCH (08:36)
[2019-04-18] MEDS: SERTRALINE 50 MG TABLET PO SCH (08:36)
[2019-04-18] MEDS: APIXABAN 5 MG TABLET PO SCH (08:36)
--- NOTE | 2019-04-18 11:18 | Discharge Plan ---
Discharge Plan Problem Reviewed?: Yes Disposition: Home, Self Care Condition: Stable Prescriptions: Apixaban [Eliquis] 10 mg PO BID #16 tablet Ciprofloxacin HCl [Cipro] 500 mg PO BID #14 tablet Levothyroxine [Synthroid] 100 mcg PO QDAC #10 tablet Levothyroxine [Synthroid] 125 mcg PO QDAC #10 tablet Diet: Regular Activity Restrictions: Activity as Tolerated Shower Restrictions: No (fall precaution) Instruction Topics: Levothyroxine tablets, Apixaban oral tablets, Ciprofloxacin tablets, Thyroid Stimulating Hormone, DVT Health Concerns: UTI with bactermia, DVT, hypothyroidism Plan of Treatment: You were found UTI and bacteremia. According to sensitivity study, Cipro is prescribed for you now, and hold your home antibiotics Cefdinir. You had three days of 10mg bid Eliquis for DVT in the hospital, 4 days of 10mg bid Eliquis is prescribed for you now. Then continue your home meds 5mg bid of Eliquis and followup your PCP to continue management you were found to have how TSH. you are prescribed 225 mcg Levothyroxine daily now, please hold your home 300mcg Levothyroxine, followup your PCP to continue management. Care Goals: stabilization and improvement of your medical conditions Assessment: assessment as the above Additional Instructions or Follow Up instructions: you may followup your PCP in one week, review your home medications with PCP as well. Home health PT/OT/AIDE are arranged for you. Should your symptoms return or worsen, you may present ER or call 911 for help. No Smoking: If you smoke, Please STOP! Call for help. Follow-up with: Carmela Shook MD [Primary Care Provider] -
--- NOTE | 2019-04-18 11:59 | DISCHARGE SUMMARY ---
Discharge Summary Admit Date: 04/15/19 Discharge Date: 04/18/19 Discharging Provider: MCKEON Primary Care Provider: Cristobal Burrell Condition at Discharge: Stable Discharge Disposition: 01 Home, Self Care Discharge Facility Name: home - DIAGNOSES Admission Diagnoses: (1) E. coli UTI (2) Acute superficial venous thrombosis of right lower extremity (3) Dehydration, mild (4) Weakness generalized (5) Chronic combined systolic and diastolic CHF (congestive heart failure) (6) Asthma (7) Dementia (8) Hypothyroidism Discharge Diagnoses with Status of Each Condition: (1) Bacteremia pt was found to have Ecoli bacteremia. but pt has no fever, no elevated WBC, BP is stable, Lactic acid in the normal arrange. Cipro is prescribed for pt continue the treatment course. (2) E. coli UTI UA reveals Ecoli. Cipro is prescribed for pt continue the treatment course. (3) Acute superficial venous thrombosis of right lower extremity pt was found to have superficial venous thrombosis on right lower extremity pt was advised to had three days of 10mg bid Eliquis for DVT in the hospital, 4 days of 10mg bid Eliquis is prescribed for you now. Then continue your home meds 5mg bid of Eliquis and followup your PCP to continue management (4) Dehydration, mild resolved (5) Weakness generalized stable, pt is arrange home health PT/OT (6) Chronic combined systolic and diastolic CHF (congestive heart failure) stable (7) Asthma stable (8) Dementia with acute mild metabolic encephalopathy stable (9) Hypothyroidism you were found to have low TSH. you are prescribed 225 mcg Levothyroxine daily now, please hold your home 300mcg Levothyroxine, followup your PCP to continue management. - HPI History of Present Illness: refer from Dr. Rodriguez's HPI on 04/15/19 This is a 78 year old male with a past medical history significant for combined systolic and diastolic heart failure, dementia, Asthma, hypothyroidism, and DVT who presents from due to worsening weakness. He was seen in the emergency department yesterday after he was concerned about possible infection of his right lower extremity as it was becoming erythematous. He has been having difficulty walking because of pain in that extremity as well. He underwent a doppler of his right lower extremity which showed a thrombus in the superficial femoral vein. Given his prior history of DVT in that same extremity and risk of more proximal involvement of the thrombus, he was started on Eliquis. He was also found to have leukocytosis and his urinaylsis was suggestive of infection. Admission was recommended but the patient refused. He was sent home on Cefdinir for the UTI. Since he has been home, his reports that he has been unable to get out of bed, been extremely weak, and defecated on himself which is unusual so she brought him back to the emergency department. She told staff in the ER that he is not more confused than usual but he is more agitated when the hospital is mentioned. The patient initially did not want to be admitted because he believes he will end up in a SNF and he just wants to spend time at home. He denies weakness but he is too weak to ambulate. He states that he uses a walker for ambulation at baseline. He does endorse dysuria but denies fevers, chills, nausea, chest pain, dyspnea. He is concerned about his right leg still being a little erythematous. He reports feeling thirsty. Further history is difficult to obtain secondary to his dementia as he keeps on saying "ask my as she knows." I did attempt to call his but there was no answer. In the ER, he was found to have a temperature of 37.6, heart rate of 98, blood pressure of 127/67 and was saturating low 90's on room air. Labs revealed that his white count had slightly decreased to 10.1 with a left shift. His BUN has risen to 34 with a stable creatinine. Lactic acid was normal. His x-ray was concerning for a reticular opacity within the right lateral chest. Given his UTI and worsening weakness, medicine was consulted for admission. Of note, I did speak with the patient regarding his code status and he states that he would like to be a DNR. - HOSPITAL COURSE Hospital Course: pt was admitted for right lower extremity, weakness. pt was found to have DVT on right lower extremity, UTI infection. Later in hospital pt was found to have Ecoli bacteremia. pt was treated with Rocephin and Eliquis, PT/OT evaluated and treated pt in hospital. After treated in hospital, pt has great improvement in his weakness. pt was arranged home health PT/OT/AIEDs for continue care. The detail hospital course is as the below: 1) Bacteremia pt was found to have Ecoli bacteremia. but pt has no fever, no elevated WBC, BP is stable, Lactic acid in the normal arrange. Cipro is prescribed for pt continue the treatment course. (2) E. coli UTI UA reveals Ecoli. Cipro is prescribed for pt continue the treatment course. (3) Acute superficial venous thrombosis of right lower extremity pt was found to have superficial venous thrombosis on right lower extremity pt was advised to had three days of 10mg bid Eliquis for DVT in the hospital, 4 days of 10mg bid Eliquis is prescribed for you now. Then continue your home meds 5mg bid of Eliquis and followup your PCP to continue management (4) Dehydration, mild resolved (5) Weakness generalized stable, pt is arrange home health PT/OT (6) Chronic combined systolic and diastolic CHF (congestive heart failure) stable (7) Asthma stable (8) Dementia with acute mild metabolic encephalopathy stable (9) Hypothyroidism you were found to have low TSH. you are prescribed 225 mcg Levothyroxine daily now, please hold your home 300mcg Levothyroxine, followup your PCP to continue management. - ALLERGIES Allergies/Adverse Reactions: Allergies Allergy/AdvReac Type Severity Reaction Status Date / Time amoxicillin [Amoxicillin] Allergy Unknown Rash Verified 04/15/19 17:25 - MEDICATIONS Home Medications: Ambulatory Orders Medication Instructions Recorded Confirmed Albuterol [Ventolin Hfa] 2 puffs INH Q4H PRN 03/29/13 04/16/19 Lisinopril [Zestril] 2.5 mg PO DAILY #15 tablet 12/27/18 04/16/19 Spironolactone [Aldactone] 25 mg PO DAILY #30 tablet 12/27/18 04/16/19 Apixaban [Eliquis] 5 mg PO BID #60 tablet 04/14/19 04/16/19 Buspirone HCl 15 mg PO BID 04/16/19 04/16/19 Fluticasone/Salmeterol [Advair Hfa 1 puffs INH BID 04/16/19 04/16/19 45-21 Mcg Inhaler] Furosemide [Lasix] 20 mg PO DAILY 04/16/19 04/16/19 Montelukast [Singulair] 10 mg PO QPM 04/16/19 04/16/19 Sertraline HCl [Zoloft] 100 mg PO DAILY 04/16/19 04/16/19 Apixaban [Eliquis] 10 mg PO BID #16 tablet 04/18/19 Ciprofloxacin HCl [Cipro] 500 mg PO BID #14 tablet 04/18/19 Levothyroxine [Synthroid] 100 mcg PO QDAC #10 tablet 04/18/19 Levothyroxine [Synthroid] 125 mcg PO QDAC #10 tablet 04/18/19 - PHYSICAL EXAM AT DISCHARGE General Appearance: positive: No acute distress, Alert. negative: Lethargic Eyes Bilateral: positive: Normal inspection, PERRL, No lid inflammation, Conjunctivae nml ENT: positive: ENT inspection nml, Pharynx nml, No signs of dehydration. negative: Purulent nasal drainage Neck: positive: Nml inspection, Thyroid nml, No JVD, Trachea midline. negative: Thyromegaly, Lymphadenopathy (R), Lymphadenopathy (L), Stiff neck, Swelling/bruising, Tracheal deviation Respiratory: positive: Chest non-tender, No respiratory distress, Breath sounds nml. negative: Wheezes, Rales, Rhonchi Cardiovascular: positive: Regular rate & rhythm, No murmur, No gallop. negative: Irregularly irregular, Extrasystoles, Tachycardia, Bradycardia, JVD present, Systolic murmur, Diastolic murmur Peripheral Pulses: positive: 2+ Abdomen: positive: Non-tender, No organomegaly, Nml bowel sounds, No distention. negative: Tenderness, Guarding, Rebound Back: positive: Nml inspection. negative: CVA tenderness (R), CVA tenderness (L) Skin: positive: Color nml, No rash, Warm, Dry. negative: Cyanosis, Diaphoresis, Pallor Extremities: positive: Non-tender, Nml appearance. negative: Calf tenderness, Joint swelling, Siva's sign/cords Neurologic/Psychiatric: positive: Sensation nml. negative: Weakness, Sensory loss, Facial droop, Slurred/abnml speech, Depressed mood/affect - LABS Result Diagrams: 04/18/19 05:00 04/18/19 05:00 - SEPSIS Current Stage of Sepsis: Sepsis Sepsis Criteria: Recorded Heart Rate greater than 90 bpm - FOLLOW UP Follow Up: You were found UTI and bacteremia. According to sensitivity study, Cipro is prescribed for you now, and hold your home antibiotics Cefdinir. You had three days of 10mg bid Eliquis for DVT in the hospital, 4 days of 10mg bid Eliquis is prescribed for you now. Then continue your home meds 5mg bid of Eliquis and followup your PCP to continue management you were found to have how TSH. you are prescribed 225 mcg Levothyroxine daily now, please hold your home 300mcg Levothyroxine, followup your PCP to continue management. you may followup your PCP in one week, review your home medications with PCP as well. Home health PT/OT/AIDE are arranged for you. Should your symptoms return or worsen, you may present ER or call 911 for help. - TIME SPENT Time Spent in Discharge (Minutes): 60
[2019-04-18] MEDS: ALBUTEROL NEB 2.5 MG/3 ML INH PRN (13:10)
[2019-04-18] MEDS: FORMOTEROL FUMARATE NEB 20 MCG/2 ML INH SCH (14:54)
[2019-04-18] MEDS: BUDESONIDE 0.5 MG/2 ML NEB INH SCH (14:54)
--- NOTE | 2019-04-25 21:01 | ED Physician Documentation ---
ED Addendum - Addendum Addendum: 04/25/19 21:00 Final dx: 1) UTI 2) Generalized weakness
== END 2019-04-18 15:46 | disposition home health service (06) | DRG 689 ==
LOC: EDUNIT# → ED 17:19 → MS2 21:03
PROVIDERS: ADMIT Internal Medicine; ATTEND Nurse Practitioner Gerontology
DX: N39.0 Urinary tract infection, site not specified (principal); G93.41 Metabolic encephalopathy; R45.1 Restlessness and agitation; R32 Unspecified urinary incontinence; R93.89 Abnormal findings on diagnostic imaging of other specified body structures; I50.42 Chronic combined systolic (congestive) and diastolic (congestive) heart failure; R78.81 Bacteremia; I10 Essential (primary) hypertension; I82.411 Acute embolism and thrombosis of right femoral vein; B96.20 Unspecified Escherichia coli [E. coli] as the cause of diseases classified elsewhere; I95.9 Hypotension, unspecified; E86.0 Dehydration; I11.0 Hypertensive heart disease with heart failure; J45.909 Unspecified asthma, uncomplicated; F03.90 Unspecified dementia, unspecified severity, without behavioral disturbance, psychotic disturbance, mood disturbance, and anxiety; E03.9 Hypothyroidism, unspecified; R53.1 Weakness; R15.9 Full incontinence of feces; F32.9 Major depressive disorder, single episode, unspecified; Z66 Do not resuscitate; Z79.899 Other long term (current) drug therapy; Z79.01 Long term (current) use of anticoagulants; Z79.51 Long term (current) use of inhaled steroids; Z87.891 Personal history of nicotine dependence; Z86.79 Personal history of other diseases of the circulatory system
CPT/HCPCS: 36415; 71046; 80048; 80053; 83605; 83690; 83735; 84100; 84439; 84443; 84484; 85025; 87040; 87070; 87077; 87181; 87205; 94640; 96360; 97161; 97166; 97530; 99283; 99285; A6250; A9270; J7120; J7626

== ENCOUNTER 2019-05-24 20:42 | Outpatient (CLI) | payer MEDICARE, OTHER | END 2019-05-24 20:43 | disposition critical access hospital (66) | LOC: EMS 20:42 | PROVIDERS: ATTEND Surgery | DX: S01.81XA Laceration without foreign body of other part of head, initial encounter (principal); W01.0XXA Fall on same level from slipping, tripping and stumbling without subsequent striking against object, initial encounter; Y93.01 Activity, walking, marching and hiking | CPT/HCPCS: A0425; A0429 ==

== ENCOUNTER 2019-07-31 08:00 | Outpatient (CLI) | payer MEDICARE, OTHER ==
[2019-07-31 18:41] LABS: HGB - HEMOGLOBIN 14.2 g/dL (14.0-18.0); MEAN CORPUSCULAR HEMOGLOBIN 30.9 pg (27.0-31.0); MEAN CORPUSCULAR HGB CONC 30.8 g/dL (32.0-36.0); MEAN CORPUSCULAR VOLUME 100.4 fL (80.0-94.0); MEAN PLATELET VOLUME 10.7 fL (7.4-11.4); RED BLOOD COUNT 4.59 10^6/uL (4.70-6.10); RED CELL DISTRIBUTION WIDTH 13.8 % (12.0-15.0); WHITE BLOOD COUNT 8.3 x10^3/uL (4.8-10.8)
[2019-07-31 19:06] LABS: CALCIUM 9.5 mg/dL (8.5-10.3); CREATININE 0.8 mg/dL (0.6-1.2)
== END 2019-07-31 23:59 | disposition home or self-care (01) ==
LOC: LAB.WCP 08:00
PROVIDERS: ATTEND Family Medicine
DX: I50.9 Heart failure, unspecified (principal)
CPT/HCPCS: 36415; 80048; 85027

== ENCOUNTER 2020-01-22 15:54 | Outpatient (CLI) | payer MEDICARE, OTHER ==
[2020-01-22 18:46] LABS: BASOPHILS # (AUTO) 0.1 10^3/uL (0.0-0.1); BASOPHILS % (AUTO) 0.6 %; EOSINOPHILS # (AUTO) 0.3 10^3/uL (0.0-0.7); EOSINOPHILS % (AUTO) 3.6 %; LYMPHOCYTES # (AUTO) 1.1 10^3/uL (1.5-3.5); LYMPHOCYTES % (AUTO) 13.2 %; MEAN CORPUSCULAR HEMOGLOBIN 32.4 pg (27.0-31.0); MEAN CORPUSCULAR HGB CONC 32.5 g/dL (32.0-36.0); MEAN CORPUSCULAR VOLUME 99.8 fL (80.0-94.0); MEAN PLATELET VOLUME 10.4 fL (7.4-11.4); MONOCYTES # (AUTO) 0.8 10^3/uL (0.0-1.0); NEUTROPHILS # (AUTO) 6.3 10^3/uL (1.5-6.6); PLT - PLATELET COUNT 218 10^3/uL (130-450); RED BLOOD COUNT 4.32 10^6/uL (4.70-6.10); RED CELL DISTRIBUTION WIDTH 13.2 % (12.0-15.0); WHITE BLOOD COUNT 8.6 x10^3/uL (4.8-10.8)
[2020-01-22 19:24] LABS: ALBUMIN/GLOBULIN RATIO 0.9 (1.0-2.2); ALKALINE PHOSPHATASE 91 IU/L (42-121); ALT ALANINE AMINOTRANSFERASE 21 IU/L (10-60); AST ASPARTATE AMINOTRANSFERASE 26 IU/L (10-42); BILIRUBIN,TOTAL 0.4 mg/dL (0.2-1.0); BUN - BLOOD UREA NITROGEN 33 mg/dL (6-20); CALCIUM 9.1 mg/dL (8.5-10.3); CARBON DIOXIDE - CO2 28 mmol/L (21-32); CHLORIDE 103 mmol/L (101-111); CHOL/HDL RATIO 5.7 (<5.0); CHOLESTEROL 188 mg/dL; CREATININE 0.8 mg/dL (0.6-1.2); GLUCOSE 102 mg/dL (70-100); HDL CHOLESTEROL 33 mg/dL; LDL CHOLESTEROL,CALCULATED 121 mg/dL; LDL/HDL RATIO 3.7 (<3.6); SODIUM 139 mmol/L (135-145); TOTAL PROTEIN 8.3 g/dL (6.7-8.2); VLDL CHOLESTEROL 34 mg/dL
[2020-01-22 19:45] LABS: HB2 TOTAL 14.5 g/dL; HEMOGLOBIN A1C 0.54 g/dL; HEMOGLOBIN A1C % 5.6 % (4.6-6.2)
[2020-01-22 20:37] LABS: FREE T4 (FREE THYROXINE) 1.21 ng/dL (0.58-1.64)
== END 2020-01-22 23:59 | disposition home or self-care (01) ==
LOC: LAB.WCP 15:54
PROVIDERS: ATTEND Family Medicine
DX: I11.0 Hypertensive heart disease with heart failure (principal); E78.5 Hyperlipidemia, unspecified; R73.9 Hyperglycemia, unspecified; I50.9 Heart failure, unspecified; E03.9 Hypothyroidism, unspecified
CPT/HCPCS: 36415; 80053; 80061; 83036; 83721; 83880; 84439; 84443; 85025

== ENCOUNTER 2020-06-13 16:14 | Outpatient (CLI) | payer MEDICARE, OTHER ==
[2020-06-13 18:06] LABS: BASOPHILS # (AUTO) 0.1 10^3/uL (0.0-0.1); BASOPHILS % (AUTO) 0.8 %; EOSINOPHILS # (AUTO) 0.3 10^3/uL (0.0-0.7); EOSINOPHILS % (AUTO) 4.6 %; HGB - HEMOGLOBIN 14.9 g/dL (14.0-18.0); LYMPHOCYTES # (AUTO) 1.1 10^3/uL (1.5-3.5); LYMPHOCYTES % (AUTO) 17.5 %; MEAN CORPUSCULAR HEMOGLOBIN 33.6 pg (27.0-31.0); MEAN CORPUSCULAR HGB CONC 32.3 g/dL (32.0-36.0); MEAN CORPUSCULAR VOLUME 104.3 fL (80.0-94.0); MEAN PLATELET VOLUME 10.8 fL (7.4-11.4); MONOCYTES # (AUTO) 0.6 10^3/uL (0.0-1.0); MONOCYTES % (AUTO) 9.7 %; NEUTROPHILS # (AUTO) 4.1 10^3/uL (1.5-6.6); NEUTROPHILS % (AUTO) 66.9 %; PLT - PLATELET COUNT 213 10^3/uL (130-450); RED BLOOD COUNT 4.43 10^6/uL (4.70-6.10); RED CELL DISTRIBUTION WIDTH 13.6 % (12.0-15.0); WHITE BLOOD COUNT 6.1 x10^3/uL (4.8-10.8)
[2020-06-13 19:07] LABS: ALBUMIN 4.2 g/dL (3.2-5.5); ALKALINE PHOSPHATASE 73 IU/L (42-121); ALT ALANINE AMINOTRANSFERASE 18 IU/L (10-60); AST ASPARTATE AMINOTRANSFERASE 28 IU/L (10-42); BILIRUBIN,TOTAL 0.8 mg/dL (0.2-1.0); BUN - BLOOD UREA NITROGEN 29 mg/dL (6-20); CALCIUM 9.3 mg/dL (8.5-10.3); CARBON DIOXIDE - CO2 29 mmol/L (21-32); CHLORIDE 104 mmol/L (101-111); CHOL/HDL RATIO 5.2 (<5.0); CHOLESTEROL 233 mg/dL; GLUCOSE 78 mg/dL (70-100); HDL CHOLESTEROL 45 mg/dL; LDL CHOLESTEROL,CALCULATED 164 mg/dL; LDL/HDL RATIO 3.6 (<3.6); SODIUM 143 mmol/L (135-145); TOTAL PROTEIN 8.3 g/dL (6.7-8.2); VLDL CHOLESTEROL 24 mg/dL
[2020-06-13 20:09] LABS: HEMOGLOBIN A1c% 5.6 % (4.27-6.07)
[2020-06-13 21:20] LABS: FREE T4 (FREE THYROXINE) 0.32 ng/dL (0.58-1.64)
== END 2020-06-13 23:59 | disposition home or self-care (01) ==
LOC: LAB.WCP 16:14
PROVIDERS: ATTEND Family Medicine
DX: I11.0 Hypertensive heart disease with heart failure (principal); R73.9 Hyperglycemia, unspecified; F03.90 Unspecified dementia, unspecified severity, without behavioral disturbance, psychotic disturbance, mood disturbance, and anxiety; I50.9 Heart failure, unspecified; E03.9 Hypothyroidism, unspecified
CPT/HCPCS: 36415; 80053; 80061; 82607; 83036; 83721; 83880; 84439; 84443; 85025

== ENCOUNTER 2020-09-08 08:00 | Outpatient (CLI) | payer MEDICARE, OTHER ==
[2020-09-08 18:33] LABS: THYROID STIMULATING HORMONE 5.6 uIU/mL (0.34-5.60)
== END 2020-09-08 23:59 | disposition home or self-care (01) ==
LOC: LAB.WCP 08:00
PROVIDERS: ATTEND Family Medicine
DX: E03.9 Hypothyroidism, unspecified (principal)
CPT/HCPCS: 36415; 84443

== ENCOUNTER 2020-12-11 08:00 | Outpatient (CLI) | payer MEDICARE, OTHER ==
[2020-12-11 17:43] LABS: BASOPHILS % (AUTO) 0.7 %; EOSINOPHILS # (AUTO) 0.2 10^3/uL (0.0-0.7); EOSINOPHILS % (AUTO) 3.7 %; HCT - HEMATOCRIT 44.3 % (42.0-52.0); HGB - HEMOGLOBIN 14.4 g/dL (14.0-18.0); LYMPHOCYTES # (AUTO) 1.1 10^3/uL (1.5-3.5); MEAN CORPUSCULAR HEMOGLOBIN 33.6 pg (27.0-31.0); MEAN CORPUSCULAR HGB CONC 32.5 g/dL (32.0-36.0); MEAN CORPUSCULAR VOLUME 103.5 fL (80.0-94.0); MONOCYTES # (AUTO) 0.5 10^3/uL (0.0-1.0); MONOCYTES % (AUTO) 7.7 %; NEUTROPHILS % (AUTO) 68.6 %; PLT - PLATELET COUNT 143 10^3/uL (130-450); RED BLOOD COUNT 4.28 10^6/uL (4.70-6.10); RED CELL DISTRIBUTION WIDTH 14.4 % (12.0-15.0); WHITE BLOOD COUNT 5.9 x10^3/uL (4.8-10.8)
[2020-12-11 18:11] LABS: ALBUMIN 4.3 g/dL (3.2-5.5); ALBUMIN/GLOBULIN RATIO 1.1 (1.0-2.2); ALKALINE PHOSPHATASE 56 IU/L (42-121); ALT ALANINE AMINOTRANSFERASE 17 IU/L (10-60); AST ASPARTATE AMINOTRANSFERASE 39 IU/L (10-42); BILIRUBIN,TOTAL 0.7 mg/dL (0.2-1.0); BUN - BLOOD UREA NITROGEN 28 mg/dL (6-20); CARBON DIOXIDE - CO2 28 mmol/L (21-32); CHLORIDE 102 mmol/L (101-111); CHOL/HDL RATIO 5.7 (<5.0); CHOLESTEROL 291 mg/dL; CREATININE 1.2 mg/dL (0.6-1.2); GFR - MDRD 58 (>89); GLUCOSE 84 mg/dL (70-100); HDL CHOLESTEROL 51 mg/dL; LDL CHOLESTEROL,CALCULATED 216 mg/dL; LDL/HDL RATIO 4.2 (<3.6); POTASSIUM 4.1 mmol/L (3.5-5.0); SODIUM 142 mmol/L (135-145); TOTAL PROTEIN 8.2 g/dL (6.7-8.2); TRIGLYCERIDES 121 mg/dL; VLDL CHOLESTEROL 24 mg/dL
[2020-12-11 18:50] LABS: THYROID STIMULATING HORMONE 223.31 uIU/mL (0.34-5.60)
[2020-12-11 19:34] LABS: FREE T4 (FREE THYROXINE) < 0.25 ng/dL (0.58-1.64)
[2020-12-11 19:59] LABS: ESTIMATED AVERAGE GLUCOSE 111 mg/dL (70-100); HEMOGLOBIN A1c% 5.5 % (4.27-6.07)
== END 2020-12-11 23:59 | disposition home or self-care (01) ==
LOC: LAB.WCP 08:00
PROVIDERS: ATTEND Family Medicine
DX: I11.0 Hypertensive heart disease with heart failure (principal); E78.5 Hyperlipidemia, unspecified; F03.90 Unspecified dementia, unspecified severity, without behavioral disturbance, psychotic disturbance, mood disturbance, and anxiety; R73.9 Hyperglycemia, unspecified; I50.9 Heart failure, unspecified; E03.9 Hypothyroidism, unspecified
CPT/HCPCS: 36415; 80053; 80061; 82607; 83036; 83721; 83880; 84439; 84443; 85025

== ENCOUNTER 2021-01-05 21:08 | Outpatient (CLI) | payer MEDICARE, OTHER | END 2021-01-05 21:09 | disposition short-term general hospital (02) | LOC: EMS 21:08 | DX: R53.1 Weakness (principal); R50.9 Fever, unspecified; R61 Generalized hyperhidrosis | CPT/HCPCS: A0425; A0427 ==

== ENCOUNTER 2021-08-30 20:28 | Outpatient (CLI) | payer MEDICARE, OTHER | END 2021-08-30 20:29 | disposition left against medical advice (07) | LOC: EMS 20:28 | DX: R53.1 Weakness (principal) ==

== ENCOUNTER 2021-09-06 04:35 | Outpatient (CLI) | payer MEDICARE, OTHER | END 2021-09-06 04:36 | disposition EMS.NT | LOC: EMS 04:35 | DX: R41.0 Disorientation, unspecified (principal); R47.81 Slurred speech; R09.89 Other specified symptoms and signs involving the circulatory and respiratory systems ==